=== PATIENT | female | born 1960 | race African-American/Black ===

== ENCOUNTER → 2017-08-02 | Outpatient (CLI) | payer BC | END | disposition home or self-care (01) | LOC: KCIC MAMMO 12:26 | DX: Z12.31 Encounter for screening mammogram for malignant neoplasm of breast (principal) | CPT/HCPCS: 77067 ==

== ENCOUNTER → 2018-08-03 | Outpatient (CLI) | payer BC ==
[2016-03-13 08:57] VITALS: BP 101/57
[~2018-08-03] MED LIST: ALEN35TA6 PO; CHOL10003 PO; LEVO88TA2 PO; PANT40TA5 PO; TRAM50TA PO
--- NOTE | 2018-08-03 15:46 | KCIC ---
History: Screening. Bilateral digital CC and MLO views were obtained with mammography and tomosynthesis. Computer aided detection was utilized with iCAD Second Look 7.2-H. Previous: Mammogram August 02, 2017 and priors. There are scattered fibroglandular densities (Level 2 density).There are no spiculated masses, suspicious microcalcifications or areas of architectural distortion. At the left upper outer breast 1:00 position mid depth there is a 1 cm oval partially circumscribed mass not apparent on the prior studies which may have a fatty hilum and could represent an intramammary lymph node. This should be further assessed sonographically. IMPRESSION: Left upper outer breast 1:00 position mid depth 1 cm mass, possibly a lymph node, not apparent on prior studies. Further assessment with left breast sonography is advised. BI-RADS Category 0: Incomplete. Need additional imaging evaluation. If your mammogram demonstrates that you have dense breast tissue, which could hide abnormalities, and if you have other risk factors for breast cancer that have been identified, you might benefit from supplemental screening tests that may be suggested by your ordering physician. Dense breast tissue, in and of itself, is a relatively common condition. This information is not provided to cause undue concern, but rather to raise your awareness and to promote discussion with your physician regarding the presence of other risk factors, in addition to dense breast tissue. A report of your mammography results will be sent to you and your physician. You should contact your physician if you have any questions or concerns regarding this report. A mammogram does not have 100% sensitivity and therefore a negative imaging study should not delay further work up of a suspicious abnormality. "Our facility is accredited by the [employer] Mammography [employer]." Electronically signed by: Slick Ritchie MD (08/03/2018 3:43 PM) [id number]
== END | disposition home or self-care (01) ==
LOC: KCIC MAMMO 09:08
PROVIDERS: ATTEND Family Medicine
DX: Z12.31 Encounter for screening mammogram for malignant neoplasm of breast (principal)
CPT/HCPCS: 77063; 77067

== ENCOUNTER → 2018-08-19 | Outpatient (CLI) | payer BC ==
[2016-03-13 08:57] VITALS: BP 101/57
--- NOTE | 2018-08-19 13:36 | KCIC ---
Left breast ultrasound: Reason for examination: Nodular density on screening mammogram. Comparison is made to mammographic exam dated 08/03/2018. Ultrasound examination was performed with attention to the area of mammographic concern and the left axilla. In the 1:30 position 9 cm from the nipple there is a 9.5 x 7.5 mm hypoechoic circumscribed lesion in parallel orientation. This may represent a fibroadenoma or fibrocystic lesion but has a benign appearance. There is also a small 9.6 mm intramammary lymph node at the 3:00 position 15 cm from the nipple. No other cystic or solid lesions are seen. No abnormal appearing lymph nodes are seen in the axilla. IMPRESSION: Small benign-appearing circumscribed nodule measuring 9.5 mm in greatest dimension at the 1:30 position 9 cm from the nipple. Recommend reevaluation with ultrasound in 6 months. BI-RADS Category 3: Probably Benign. "Our facility is accredited by the [employer] Mammography [employer]." This patient's information has been entered into a reminder system for the patient to be notified with the results of her examination and a target date for the next mammogram. Electronically signed by: Chelsey Hernandez MD (08/19/2018 1:33 PM) [id number]
== END | disposition home or self-care (01) ==
LOC: KCIC US 12:56
PROVIDERS: ATTEND Family Medicine
DX: N63.21 Unspecified lump in the left breast, upper outer quadrant (principal)
CPT/HCPCS: 76641

== ENCOUNTER → 2019-02-20 | Outpatient (CLI) | payer BC ==
[2016-03-13 08:57] VITALS: BP 101/57
[~2019-02-20] MED LIST changes: -PANT40TA5 PO; +PANT40TA77 PO
--- NOTE | 2019-02-20 14:53 | KCIC ---
Left breast ultrasound: Reason for examination: Follow-up nodule. Comparison is made to previous study dated 08/19/2018. Ultrasound examination of the left breast was performed. At the 1:30 position 9 cm from the nipple, there continues to be 9.4 x 6.1 mm hypoechoic nodule in parallel orientation containing echogenic plaque which probably represents a small fibroadenoma with calcification. This is unchanged. At the 3:00 position 15 cm from the nipple, there is a intramammary lymph node measuring 8.5 mm in greatest dimension. No suspicious lesions are seen. No abnormal appearing lymph nodes are seen in left axilla. IMPRESSION: The nodule at the 1:30 position is not changed and may represent a small fibroadenoma. Intramammary lymph node at the posterior 3:00 position. No suspicious nodules seen. Recommend continued sonographic follow-up in 6 months at the time of bilateral mammograms. BI-RADS Category 3: Probably Benign. "Our facility is accredited by the [employer] Mammography [employer]." This patient's information has been entered into a reminder system for the patient to be notified with the results of her examination and a target date for the next mammogram. Electronically signed by: Chelsey Hernandez MD (02/20/2019 2:51 PM) [facility]
== END | disposition home or self-care (01) ==
LOC: KCIC US 09:58
PROVIDERS: ATTEND Family Medicine
DX: N63.21 Unspecified lump in the left breast, upper outer quadrant (principal)
CPT/HCPCS: 76641

== ENCOUNTER 2019-06-19 14:56 | Inpatient (IN) | payer BC ==
[~2019-06-19] VITALS: Ht 152.4 cm; Wt 122.9 kg
[~2019-06-19 14:56] MED LIST changes: +ALEN35TA11 PO; -ALEN35TA6 PO
[2019-06-19 15:44] LABS: BASO # 0.1 x10^3/uL (0.0-0.2); BASO % 1 % (0-3); EOS % 0 % (0-3); HEMATOCRIT 35.2 % (36.0-47.0); HEMOGLOBIN 12.2 g/dL (12.0-15.5); LYMPH % 8 % (24-48); MEAN CORPUSCULAR HEMOGLOBIN 47 pg (25-35); MEAN CORPUSCULAR HGB CONC 35 g/dL (31-37); MEAN CORPUSCULAR VOLUME 136 fL (79-100); MONO # 0.4 x10^3/uL (0.0-1.1); MONO % 3 % (0-9); NEUT # 10.6 x10^3/uL (1.8-7.7); NEUT % 88 % (31-73); PLATELET COUNT 312 x10^3/uL (140-400); RED BLOOD COUNT 2.59 x10^6/uL (3.50-5.40); RED CELL DISTRIBUTION WIDTH 15.9 % (11.5-14.5); WHITE BLOOD COUNT 12.1 x10^3/uL (4.0-11.0)
--- NOTE | 2019-06-19 15:46 | PHYS DOC ---
Past Medical History Past Medical History: Hypothyroid, Other Additional Past Medical Histor: osteoporosis, vit D deff Past Surgical History: , Tubal ligation Alcohol Use: None Drug Use: None Adult General Chief Complaint Chief Complaint: CELLULITIS HPI HPI Patient is a 58 year old female who presents with right leg pain has been for 2 weeks. The patient states she's been having difficulty walking the right leg due to the pain. The patient states that the pain is worsening. The patient was seen by primary care doctor and sent to the ER. She denies using antibiotics so far but states she's been on prednisone. Denies running any fevers. Complete ROS were reviewed and found to be within normal limits, except as documented in the HPI Current Medications Current Medications Current Medications Medications (Trade) Dose Ordered Sig/Gokul Start Time Stop Time Status Last Admin Dose Admin Clindamycin Phosphate 50 ml @ 100 mls/hr 1X STAT 06/19/19 15:48 06/19/19 16:17 DC 06/19/19 16:12 100 MLS/HR Lidocaine HCl 20 ml 1X STAT 06/19/19 16:24 06/19/19 16:25 DC 06/19/19 16:28 20 ML Ondansetron HCl (Zofran) 4 mg PRN Q8HRS PRN 06/19/19 17:00 06/20/19 16:59 Sodium Chloride 1,000 ml @ 1,000 mls/hr 1X STAT 06/19/19 15:48 06/19/19 16:47 DC 06/19/19 16:12 1,000 MLS/HR Allergies Allergies Allergies Coded Allergies Type Severity Reaction Last Updated Verified No Known Drug Allergies 03/13/16 No Physical Exam Physical Exam Constitutional: Well developed, well nourished, no acute distress, non-toxic appearance. [] HENT: Normocephalic, atraumatic, bilateral external ears normal, oropharynx moist, no oral exudates, nose normal. [] Eyes: PERRLA, EOMI, conjunctiva normal, no discharge. [] Neck: Normal range of motion, no tenderness, supple, no stridor. [] Cardiovascular:Heart rate regular rhythm, no murmur [] Lungs & Thorax: Bilateral breath sounds clear to auscultation [] Skin: Erythema and edema to right leg. The patient has black vesicle over the right ankle with fluctuence and multiple spots of circular scabbed wound with erythema around it. Extremities: Tenderness to R calf, warm to touch. Neurologic: Alert and oriented X 3, normal motor function, normal sensory function, no focal deficits noted. [] Psychologic: Affect normal, judgement normal, mood normal. [] Current Patient Data Vital Signs Vital Signs Date Time Temp Pulse Resp B/P (MAP) Pulse Ox O2 Delivery O2 Flow Rate FiO2 06/19/19 15:15 98.1 100 16 179/98 (125) 98 Room Air 98.1 Lab Values Laboratory Tests Test 06/19/19 15:30 White Blood Count 12.1 x10^3/uL (4.0-11.0) H Red Blood Count 2.59 x10^6/uL (3.50-5.40) L Hemoglobin 12.2 g/dL (12.0-15.5) Hematocrit 35.2 % (36.0-47.0) L Mean Corpuscular Volume 136 fL (79-100) H Mean Corpuscular Hemoglobin 47 pg (25-35) H Mean Corpuscular Hemoglobin Concent 35 g/dL (31-37) Red Cell Distribution Width 15.9 % (11.5-14.5) H Platelet Count 312 x10^3/uL (140-400) Neutrophils (%) (Auto) 88 % (31-73) H Lymphocytes (%) (Auto) 8 % (24-48) L Monocytes (%) (Auto) 3 % (0-9) Eosinophils (%) (Auto) 0 % (0-3) Basophils (%) (Auto) 1 % (0-3) Neutrophils # (Auto) 10.6 x10^3/uL (1.8-7.7) H Lymphocytes # (Auto) 1.0 x10^3/uL (1.0-4.8) Monocytes # (Auto) 0.4 x10^3/uL (0.0-1.1) Eosinophils # (Auto) 0.0 x10^3/uL (0.0-0.7) Basophils # (Auto) 0.1 x10^3/uL (0.0-0.2) Platelet Estimate Pending Sodium Level 140 mmol/L (136-145) Potassium Level 3.9 mmol/L (3.5-5.1) Chloride Level 103 mmol/L (98-107) Carbon Dioxide Level 26 mmol/L (21-32) Anion Gap 11 (6-14) Blood Urea Nitrogen 13 mg/dL (7-20) Creatinine 1.0 mg/dL (0.6-1.0) Estimated GFR (Cockcroft-Gault) 68.4 BUN/Creatinine Ratio 13 (6-20) Glucose Level 137 mg/dL (70-99) H Lactic Acid Level 1.6 mmol/L (0.4-2.0) Calcium Level 9.2 mg/dL (8.5-10.1) Total Bilirubin 0.7 mg/dL (0.2-1.0) Aspartate Amino Transferase (AST) 19 U/L (15-37) Alanine Aminotransferase (ALT) 18 U/L (14-59) Alkaline Phosphatase 67 U/L (46-116) Total Protein 7.8 g/dL (6.4-8.2) Albumin 4.1 g/dL (3.4-5.0) Albumin/Globulin Ratio 1.1 (1.0-1.7) Laboratory Tests 06/19/19 15:30 Laboratory Tests 06/19/19 15:30 EKG EKG [] Radiology/Procedures Radiology/Procedures [][facility] [address] [place], [place] [id number] IMAGING REPORT Signed PATIENT: INDIRA CORLEY ACCOUNT: [id number] : 1960 LOCATION: ER AGE: 58 SEX: F EXAM STATUS: REG ER ORD. PHYSICIAN: KARRI KWON APRN REASON: edema and erythema R leg abscess vs dvt PROCEDURE: VENOUS LOWER EXTREMITY RIGHT VENOUS LOWER EXTREMITY RIGHT History: Edema. Erythema. Right leg abscess versus DVT. Comparison: None. Discussion: Multiple longitudinal and transverse high resolution real-time images of the venous system of right lower extremity were obtained with color and Doppler sampling. The common femoral, superficial femoral, popliteal and proximal calf veins are all patent and demonstrate normal flow and compressibility. Normal respiratory phasicity and augmentation is present. Right lower extremity subcutaneous edema. Complex fluid collection within the right medial lower leg at the level of the ankle measures 2.4 x 2.1 x 0.8 cm. Impression: 1. No evidence of deep vein thrombosis within the right lower extremity. 2. Complex fluid collection medial to the right ankle, may represent abscesses if concern for infection. Electronically signed by: Braxton Vyas DO (06/19/2019 4:16 PM) [id number] DICTATED and SIGNED BY: BRAXTON VYAS DO DATE: 06/19/19 1616 Course & Med Decision Making Course & Med Decision Making Pertinent Labs and Imaging studies reviewed. (See chart for details) Will get an ultrasound of leg and labs. Labs: WBC: 12.1 RBC: 2.59 Lactic: 1.6 Will give IV fluids and Clindamyin. Ultrasound shows abscess to ankle and no signs of DVT. Indication: abscess Procedure: The patient was positioned appropriately. Local anesthesia was 2% lidocaine. An incision was then made over the apex of the lesion and copious material was expressed. The patient tolerated the procedure well. Will call Dr. Trinidad for admission to hospital. Discussed with Dr. Trinidad who accepts admission to hospital. Dragon Disclaimer Dragon Disclaimer This electronic medical record was generated, in whole or in part, using a voice recognition dictation system. Departure Departure Impression: Primary Impression: Cellulitis and abscess of leg Disposition: ADMITTED INPATIENT Admitting Physician: HIMS Condition: STABLE Referrals: MICHAEL LARRY MD (PCP) KARRI KWON APRN Jun 19, 2019 15:46
[2019-06-19] MEDS ORDERED: CLINDAMYCIN 600MG PREMIX 50 ML IV STA (15:48)
[2019-06-19] MEDS ORDERED: IV NORMAL SALINE 1000ML BAG 1,000 ML IV STA (15:48)
[2019-06-19 15:53] LABS: CALCIUM 9.2 mg/dL (8.5-10.1); GFR 68.4; POTASSIUM 3.9 mmol/L (3.5-5.1)
[2019-06-19 15:58] LABS: ALBUMIN 4.1 g/dL (3.4-5.0); ALBUMIN/GLOBULIN RATIO 1.1 (1.0-1.7); TOTAL BILIRUBIN 0.7 mg/dL (0.2-1.0); TOTAL PROTEIN 7.8 g/dL (6.4-8.2)
--- NOTE | 2019-06-19 16:19 | RAD ---
VENOUS LOWER EXTREMITY RIGHT History: Edema. Erythema. Right leg abscess versus DVT. Comparison: None. Discussion: Multiple longitudinal and transverse high resolution real-time images of the venous system of right lower extremity were obtained with color and Doppler sampling. The common femoral, superficial femoral, popliteal and proximal calf veins are all patent and demonstrate normal flow and compressibility. Normal respiratory phasicity and augmentation is present. Right lower extremity subcutaneous edema. Complex fluid collection within the right medial lower leg at the level of the ankle measures 2.4 x 2.1 x 0.8 cm. Impression: 1. No evidence of deep vein thrombosis within the right lower extremity. 2. Complex fluid collection medial to the right ankle, may represent abscesses if concern for infection. Electronically signed by: Braxton Vyas DO (06/19/2019 4:16 PM) [id number]
[2019-06-19] MEDS ORDERED: LIDOCAINE 2% 20 ML VIAL. IJ STA (16:24)
[2019-06-19] MEDS ORDERED: ONDANSETRON PF 4 MG/2 ML VIAL. IV PRN ×2 (17:00→20:30)
[2019-06-19 17:02] LABS: % ATYL 2 % (0-0); % BANDS 8 % (0-9); % LYMPHS 12 % (24-48); % MONOS 1 % (0-10); % SEGS 77 % (35-66); ANISOCYTOSIS SLIGHT; HOWELL-JOLLY BODIES PRESENT; PLT ESTIMATE ADEQUATE (ADEQUATE); STOMATOCYTES MOD
[2019-06-19 17:03] LABS: POLYCHROMASIA SLIGHT
[2019-06-19 17:04] LABS: SCHISTOCYTES OCC; SPHEROCYTES OCC; TOXIC VACUOLATION SLIGHT
[2019-06-19 17:06] LABS: BIZZARE CELLS OCC; TEAR DROP CELLS OCC
[2019-06-19] MEDS ORDERED: fentaNYL PF VIAL 100 MCG/2 ML VIAL IV STA (17:13)
--- NOTE | 2019-06-19 17:20 | PDOC1 ---
History and Physical Date of Admission Date of Admission DATE: 06/19/19 TIME: 17:16 Identification/Chief Complaint Chief Complaint Leg pain Source Source: Patient History of Present Illness History of Present Illness Ms Gutiérrez is a 58yo F w/ PMHx Hypothyroidism, osteoporosis, vit D deficiency who presents with right leg pain has been for 2 weeks. The patient states she's been having difficulty walking the right leg due to the pain. The patient states that the pain is worsening. The patient was seen by primary care doctor and was given some "pills" last week and today was sent to the ER (she was given acyclovir, then valtrex the following week). She thinks she has not been on antibiotics, thinks she has been on prednisone. Denies running any fevers or recent sick contacts She does note dermatitis of her lower extremities previously, had biopsy with dermatology and was told it was indeterminate, not cancerous. Her rash on her right lower extremity is red, swollen, painful and has 3 discrete red raised 2x4 cm circumferential lesions associated. WBC: 12.1, Cr 1, Glucose 137, Lactic: 1.6 Ultrasound shows abscess to ankle and no signs of DVT. I&D performed in ED, given clindamycin IV and as she is unable to bear weight and failed 2 weeks of outpatient treatment called for admission for further treatment Past Medical History Cardiovascular: No pertinent hx Pulmonary: No pertinent hx GI: No pertinent hx Heme/Onc: No pertinent hx Hepatobiliary: No pertinent hx Psych: No pertinent hx Rheumatologic: No pertinent hx Infectious disease: No pertinent hx ENT: No pertinent hx Renal/: No pertinent hx Endocrine: Hypothyroidism Dermatology: No pertinent hx Past Surgical History Past Surgical History: , Tubal Ligation Family History Family History: Hypertension Social History Smoke: No ALCOHOL: none Drugs: None Current Problem List Problem List Problems Medical Problems: (1) Cellulitis and abscess of leg Status: Acute Current Medications Current Medications Current Medications Sodium Chloride 1,000 ml @ 1,000 mls/hr 1X STAT IV Last administered on 06/19/19at 16:12; Start 06/19/19 at 15:48; Stop 06/19/19 at 16:47; Status DC Clindamycin Phosphate 50 ml @ 100 mls/hr 1X STAT IV Last administered on 06/19/19at 16:12; Start 06/19/19 at 15:48; Stop 06/19/19 at 16:17; Status DC Lidocaine HCl 20 ml 1X STAT IJ Last administered on 06/19/19at 16:28; Start 06/19/19 at 16:24; Stop 06/19/19 at 16:25; Status DC Ondansetron HCl (Zofran) 4 mg PRN Q8HRS PRN IV NAUSEA/VOMITING; Start 06/19/19 at 17:00; Stop 06/20/19 at 16:59 Fentanyl Citrate (Fentanyl 2ml Vial) 50 mcg 1X STAT IV ; Start 06/19/19 at 17:13; Stop 06/19/19 at 17:15; Status DC Active Scripts Active Reported Tramadol Hcl 50 Mg Tablet 1 Tab PO PRN Q6HRS Pantoprazole Sodium 40 Mg Tablet.dr 1 Tab PO DAILY Vitamin D3 (Cholecalciferol (Vitamin D3)) 1,000 Unit Tablet 2,000 Unit PO DAILY Alendronate Sodium 35 Mg Tablet 1 Tab PO WEEKLY Synthroid (Levothyroxine Sodium) 88 Mcg Tablet 88 Mcg PO DAILYAC Allergies Allergies: Coded Allergies: No Known Drug Allergies (Unverified , 03/13/16) ROS General: YES: Chills; No: Night Sweats, Fatigue, Malaise, Appetite, Other PSYCHOLOGICAL ROS: No: Anxiety, Behavioral Disorder, Concentration difficultie, Decreased libido, Depression, Disorientation, Hallucinations, Hostility, Irritablity, Memory difficulties, Mood Swings, Obsessive thoughts, Physical abuse, Sexual abuse, Sleep disturbances, Suicidal ideation, Other Eyes: No Blurry vision, No Decreased vision, No Double vision, No Dry eyes, No Excessive tearing, No Eye Pain, No Itchy Eyes, No Loss of vision, No Photophobia, No Scotomata, No Uses contacts, No Uses glasses, No Other HEENT: No: Heacaches, Visual Changes, Hearing change, Nasal congestion, Nasal discharge, Oral lesions, Sinus pain, Sore Throat, Epistaxis, Sneezing, Snoring, Tinnitus, Vertigo, Vocal changes, Other ALLERGY AND IMMUNOLOGY: No: Hives, Insect Bite Sensitivity, Itchy/Watery Eyes, Nasal Congestion, Post Nasal Drip, Seasonal Allergies, Other Hematological and Lymphatic: No: Bleeding Problems, Blood Clots, Blood Transfusions, Brusing, Night Sweats, Pallor, Swollen Lymph Nodes, Other ENDOCRINE: No: Breast Changes, Galactorrhea, Hair Pattern Changes, Hot Flashes, Malaise/lethargy, Mood Swings, Palpitations, Polydipsia/polyuria, Skin Changes, Temperature Intolerance, Unexpected Weight Changes, Other Breast: No New/Changing Breast Lumps, No Nipple changes, No Nipple discharge, No Other Respiratory: No: Cough, Hemoptysis, Orthopnea, Pleuritic Pain, Shortness of breath, SOB with excertion, Sputum Changes, Stridor, Tachypnea, Wheezing, Other Cardiovascular: No Chest Pain, No Palpitations, No Orthopnea, No Paroxysmal Noc. Dyspnea, No Edema, No Lt Headedness, No Other Gastrointestinal: No Nausea, No Vomiting, No Abdominal Pain, No Diarrhea, No Constipation, No Melena, No Hematochezia, No Other Genitourinary: No Dysuria, No Frequency, No Incontinence, No Hematuria, No Retention, No Discharge, No Urgency, No Pain, No Flank Pain, No Other, No , No , No , No , No , No , No Musculoskeletal: No Gait Disturbance, No Joint Pain, No Joint Stiffness, No Joint Swelling, No Muscle Pain, No Muscular Weakness, No Pain In:, No Swelling In:, No Other Neurological: No Behavorial Changes, No Bowel/Bladder ControlChng, No Confusion, No Dizziness, No Gait Disturbance, No Headaches, No Impaired Coord/balance, No Memory Loss, No Numbness/Tingling, No Seizures, No Speech Problems, No Tremors, No Visual Changes, No Weakness, No Other Skin: Yes Rash, Yes Skin Lesion Changes; No Dry Skin, No Eczema, No Hair Changes, No Lumps, No Mole Changes, No Mottling, No Nail Changes, No Pruritus, No Other, No Acne Physical Exam General: Alert, Oriented X3, Cooperative, No acute distress HEENT: Atraumatic, PERRLA, EOMI, Mucous membr. moist/pink Lungs: Clear to auscultation, Normal air movement Heart: S1S2, RRR, no thrills, no rubs, no gallops, no murmurs Rectal Exam: not examined Extremities: No clubbing, No cyanosis, No edema, Normal pulses Skin: No breakdown, Other (Anterior tibial dark dermatitis and confluent cellulitis, warm red, swollen with 3 discrete lesions, painful, raised.) Neuro: Normal speech, Strength at 5/5 X4 ext, Normal tone, Sensation intact, Cranial nerves 3-12 NL, Reflexes 2+, Other (Unable to bear weight on right leg) Psych/Mental Status: Mental status NL, Mood NL Vitals Vitals Vital Signs Date Time Temp Pulse Resp B/P (MAP) Pulse Ox O2 Delivery O2 Flow Rate FiO2 06/19/19 15:15 98.1 100 16 179/98 (125) 98 Room Air 98.1 Labs Labs Laboratory Tests Test 06/19/19 15:30 White Blood Count 12.1 x10^3/uL (4.0-11.0) Red Blood Count 2.59 x10^6/uL (3.50-5.40) Hemoglobin 12.2 g/dL (12.0-15.5) Hematocrit 35.2 % (36.0-47.0) Mean Corpuscular Volume 136 fL (79-100) Mean Corpuscular Hemoglobin 47 pg (25-35) Mean Corpuscular Hemoglobin Concent 35 g/dL (31-37) Red Cell Distribution Width 15.9 % (11.5-14.5) Platelet Count 312 x10^3/uL (140-400) Neutrophils (%) (Auto) 88 % (31-73) Lymphocytes (%) (Auto) 8 % (24-48) Monocytes (%) (Auto) 3 % (0-9) Eosinophils (%) (Auto) 0 % (0-3) Basophils (%) (Auto) 1 % (0-3) Neutrophils # (Auto) 10.6 x10^3/uL (1.8-7.7) Lymphocytes # (Auto) 1.0 x10^3/uL (1.0-4.8) Monocytes # (Auto) 0.4 x10^3/uL (0.0-1.1) Eosinophils # (Auto) 0.0 x10^3/uL (0.0-0.7) Basophils # (Auto) 0.1 x10^3/uL (0.0-0.2) Segmented Neutrophils % 77 % (35-66) Band Neutrophils % 8 % (0-9) Lymphocytes % 12 % (24-48) Atypical Lymphocytes % (Manual) 2 % (0-0) Monocytes % 1 % (0-10) Toxic Vacuolation Slight Platelet Estimate Adequate (ADEQUATE) Large Platelets Few Polychromasia Slight Anisocytosis Slight Macrocytosis Marked Spherocytes Occ Tear Drop Cells Occ Stomatocytes Mod Fu-[place] Bodies Present Schistocytes Occ RBC Morphology Bizarre Forms Occ Sodium Level 140 mmol/L (136-145) Potassium Level 3.9 mmol/L (3.5-5.1) Chloride Level 103 mmol/L (98-107) Carbon Dioxide Level 26 mmol/L (21-32) Anion Gap 11 (6-14) Blood Urea Nitrogen 13 mg/dL (7-20) Creatinine 1.0 mg/dL (0.6-1.0) Estimated GFR (Cockcroft-Gault) 68.4 BUN/Creatinine Ratio 13 (6-20) Glucose Level 137 mg/dL (70-99) Lactic Acid Level 1.6 mmol/L (0.4-2.0) Calcium Level 9.2 mg/dL (8.5-10.1) Total Bilirubin 0.7 mg/dL (0.2-1.0) Aspartate Amino Transf (AST/SGOT) 19 U/L (15-37) Alanine Aminotransferase (ALT/SGPT) 18 U/L (14-59) Alkaline Phosphatase 67 U/L (46-116) Total Protein 7.8 g/dL (6.4-8.2) Albumin 4.1 g/dL (3.4-5.0) Albumin/Globulin Ratio 1.1 (1.0-1.7) Laboratory Tests Test 06/19/19 15:30 White Blood Count 12.1 x10^3/uL (4.0-11.0) Red Blood Count 2.59 x10^6/uL (3.50-5.40) Hemoglobin 12.2 g/dL (12.0-15.5) Hematocrit 35.2 % (36.0-47.0) Mean Corpuscular Volume 136 fL (79-100) Mean Corpuscular Hemoglobin 47 pg (25-35) Mean Corpuscular Hemoglobin Concent 35 g/dL (31-37) Red Cell Distribution Width 15.9 % (11.5-14.5) Platelet Count 312 x10^3/uL (140-400) Neutrophils (%) (Auto) 88 % (31-73) Lymphocytes (%) (Auto) 8 % (24-48) Monocytes (%) (Auto) 3 % (0-9) Eosinophils (%) (Auto) 0 % (0-3) Basophils (%) (Auto) 1 % (0-3) Neutrophils # (Auto) 10.6 x10^3/uL (1.8-7.7) Lymphocytes # (Auto) 1.0 x10^3/uL (1.0-4.8) Monocytes # (Auto) 0.4 x10^3/uL (0.0-1.1) Eosinophils # (Auto) 0.0 x10^3/uL (0.0-0.7) Basophils # (Auto) 0.1 x10^3/uL (0.0-0.2) Segmented Neutrophils % 77 % (35-66) Band Neutrophils % 8 % (0-9) Lymphocytes % 12 % (24-48) Atypical Lymphocytes % (Manual) 2 % (0-0) Monocytes % 1 % (0-10) Toxic Vacuolation Slight Platelet Estimate Adequate (ADEQUATE) Large Platelets Few Polychromasia Slight Anisocytosis Slight Macrocytosis Marked Spherocytes Occ Tear Drop Cells Occ Stomatocytes Mod Fu-[place] Bodies Present Schistocytes Occ RBC Morphology Bizarre Forms Occ Sodium Level 140 mmol/L (136-145) Potassium Level 3.9 mmol/L (3.5-5.1) Chloride Level 103 mmol/L (98-107) Carbon Dioxide Level 26 mmol/L (21-32) Anion Gap 11 (6-14) Blood Urea Nitrogen 13 mg/dL (7-20) Creatinine 1.0 mg/dL (0.6-1.0) Estimated GFR (Cockcroft-Gault) 68.4 BUN/Creatinine Ratio 13 (6-20) Glucose Level 137 mg/dL (70-99) Lactic Acid Level 1.6 mmol/L (0.4-2.0) Calcium Level 9.2 mg/dL (8.5-10.1) Total Bilirubin 0.7 mg/dL (0.2-1.0) Aspartate Amino Transf (AST/SGOT) 19 U/L (15-37) Alanine Aminotransferase (ALT/SGPT) 18 U/L (14-59) Alkaline Phosphatase 67 U/L (46-116) Total Protein 7.8 g/dL (6.4-8.2) Albumin 4.1 g/dL (3.4-5.0) Albumin/Globulin Ratio 1.1 (1.0-1.7) Images Images RLE Venous Ultrasound - Multiple longitudinal and transverse high resolution real-time images of the venous system of right lower extremity were obtained with color and Doppler sampling. The common femoral, superficial femoral, popliteal and proximal calf veins are all patent and demonstrate normal flow and compressibility. Normal respiratory phasicity and augmentation is present. Right lower extremity subcutaneous edema. Complex fluid collection within the right medial lower leg at the level of the ankle measures 2.4 x 2.1 x 0.8 cm. Impression: 1. No evidence of deep vein thrombosis within the right lower extremity. 2. Complex fluid collection medial to the right ankle, may represent abscesses if concern for infection. VTE Prophylaxis Ordered VTE Prophylaxis Devices: Contraindicated VTE Pharmacological Prophylaxi: Yes Assessment/Plan Assessment/Plan A/P: Right leg abscess - near right medial malleolus, s/p I&D and culture with blood cultures. Empiric clindamycin given, will treat with vancomycin and zosyn. Consult ID. Right leg cellulitis - spares the foot. Will raise extremity, wound care for compressive wrap if she can tolerate it. Red raised lesions - this appears like erythema nodosum in 2 locations. Will see how she responds to antibiotics (no history of GI issues or pulmonary issues, no sarcoid) Leukocytosis - with tachycardia and cellulitis with abscess this is sepsis, POA, given antibiotics and fluids. Will monitor Macrocytosis - she tells me she is on B12 replacement. Will verify Hypothyroidism - will cont meds Vitamin D insufficiency - will cont meds Elevated fasting glucose - will check A1c. monitor Unable to walk - 2/2 RLE pain, will have wound care to see, pain control FEN - General diet PPX - lovenox FULL CODE Dispo - inpatient for right leg cellulitis and abscess failing outpatient treatment TEMITOPE MACKEY MD Jun 19, 2019 17:20
[2019-06-19] MEDS ORDERED: traMADol 50 MG TABLET PO PRN ×2 (17:45→20:30)
[2019-06-19 18:20] VITALS: BP 184/85
--- NOTE | 2019-06-19 18:25 | NUR ---
Notified Dr. Trinidad of patients blood pressure upon arrival to unit, no new orders received.
[2019-06-19 19:50] VITALS: BP 124/55
[2019-06-19] MEDS ORDERED: DOCUSATE SODIUM 100 MG CAPSULE. PO PRN (20:30)
[2019-06-19] MEDS ORDERED: ZOLPIDEM 5 MG TABLET. PO PRN (20:30)
[2019-06-19] MEDS: ENOXAPARIN 40 MG/0.4 ML SYRINGE. SQ SCH (21:00)
[2019-06-19] MEDS ORDERED: ENOXAPARIN 40 MG/0.4 ML SYRINGE. SQ SCH (21:00)
[2019-06-19] MEDS ORDERED: VANCOMYCIN 2 GM in IV NORMAL SALINE 500ML BAG 500 ML IV ONE (21:00)
[2019-06-19] MEDS: HYDROcodone/APAP 5/325MG 1 TAB TABLET PO PRN (23:26)
[2019-06-19] MEDS: PIPERACILLIN/TAZOBACTAM 3.375 GM in IV NORMAL SALINE 50ML 50 ML IV SCH (23:27)
[2019-06-19 23:42] VITALS: BP 103/56
--- NOTE | 2019-06-19 23:43 | NUR ---
Received report from RADHA Mixon around 1900. Pt. arrived on unit at 1810 per RADHA Escalante. Pt. states her pain is "not bad" but does get sharp pain every once in a while. Pt. is visiting with family at the time of shift change and eating her dinner. Call light is within reach and bed in lowest position. Will continue to monitor.
[2019-06-20] MEDS: VANCOMYCIN PER PHARMACY MC PRN ×2 (02:31→15:55)
--- NOTE | 2019-06-20 02:31 | NUR ---
Pharmacy Vancomycin Dosing Note S:Consulted to monitor and dose vancomycin started 06/19/19. O:INDIRA CORLEY is a 58 year old F with Abscess Cellulitis . Height: 5 feet, 0 inches Weight: 116.7 kg Avinger Body Weight: 45.50 Adjusted Body Weight: 73.98 Dosing Weight: Actual Other Antibiotics: ZOSYN 3.375 GM Q6H LABS: Last BUN: 13 Last Creatinine: 1 Creatinine Clearance: 70 mL/min Last WBC: 12.1 Last Procalcitonin: Tmax (past 24 hours): Microbiology: I/O: Drug Levels: Last level: on at Last dose given 06/19/19 at 2100 Vancomycin Dosing: Loading Dose: 2000 mg x1 Dosing Weight: Actual Target Trough: 10-20 A: Based on: WT AND CRCL P: 1. Begin Vancomycin 1750 mg IV q12h 2. Follow up Trough level on 06/21/19 at 0830 3. Pharmacy will continue to monitor, follow and adjust therapy as needed. MAGNUS CAMPBELL RPH, 06/20/[id number] Signed: 06/20/19 at 023 by MAGNUS CAMPBELL RPH PHA
[2019-06-20 03:33] VITALS: BP 104/69
[2019-06-20 05:15] LABS: BASO % 0 % (0-3); EOS # 0.1 x10^3/uL (0.0-0.7); EOS % 1 % (0-3); HEMATOCRIT 29.9 % (36.0-47.0); HEMOGLOBIN 10.5 g/dL (12.0-15.5); LYMPH # 2.9 x10^3/uL (1.0-4.8); LYMPH % 34 % (24-48); MEAN CORPUSCULAR HEMOGLOBIN 48 pg (25-35); MEAN CORPUSCULAR HGB CONC 35 g/dL (31-37); MEAN CORPUSCULAR VOLUME 137 fL (79-100); MONO # 0.5 x10^3/uL (0.0-1.1); MONO % 6 % (0-9); NEUT # 4.9 x10^3/uL (1.8-7.7); NEUT % 59 % (31-73); PLATELET COUNT 249 x10^3/uL (140-400); RED BLOOD COUNT 2.18 x10^6/uL (3.50-5.40); RED CELL DISTRIBUTION WIDTH 16.4 % (11.5-14.5); WHITE BLOOD COUNT 8.4 x10^3/uL (4.0-11.0)
[2019-06-20] MEDS: LEVOTHYROXINE 88 MCG TABLET PO SCH (05:18)
[2019-06-20] MEDS: PIPERACILLIN/TAZOBACTAM 3.375 GM in IV NORMAL SALINE 50ML 50 ML IV SCH ×3 (05:18→17:26)
[2019-06-20] MEDS: HYDROcodone/APAP 5/325MG 1 TAB TABLET PO PRN ×4 (05:22→23:01)
[2019-06-20 05:52] LABS: C-REACTIVE PROTEIN 30.9 mg/L (0-3.3); CALCIUM 8.6 mg/dL (8.5-10.1); CREATININE 0.8 mg/dL (0.6-1.0); GFR 88.5; POTASSIUM 3.6 mmol/L (3.5-5.1)
[2019-06-20 07:00] VITALS: BP 110/63
[2019-06-20] MEDS: ENOXAPARIN 40 MG/0.4 ML SYRINGE. SQ SCH ×2 (08:29→21:07)
[2019-06-20] MEDS: PANTOPRAZOLE 40 MG TABLET.DR. PO SCH (08:34)
[2019-06-20] MEDS: LACTOBACILLUS RHAMNOSUS GG 1 CAPSULE. PO SCH ×2 (08:34→21:02)
[2019-06-20] MEDS: VANCOMYCIN 1.75 GM in IV NORMAL SALINE 500ML BAG 500 ML IV SCH ×2 (08:34→21:03)
[2019-06-20] MEDS: CYANOCOBALAMIN (VITAMIN B-12) 1,000 MCG TABLET. PO SCH (08:34)
[2019-06-20] MEDS: CHOLECALCIFEROL (VITAMIN D3) 1,000 UNIT TABLET PO SCH (08:34)
--- NOTE | 2019-06-20 09:20 | PDOC ---
Infectious Disease Note Vital Sign Vital Signs Vital Signs Date Time Temp Pulse Resp B/P (MAP) Pulse Ox O2 Delivery O2 Flow Rate FiO2 06/20/19 07:17 16 Room Air 06/20/19 03:33 98.1 72 104/69 (81) 94 98.1 Labs Lab Laboratory Tests Test 06/19/19 15:30 06/20/19 03:55 White Blood Count 12.1 x10^3/uL (4.0-11.0) 8.4 x10^3/uL (4.0-11.0) Red Blood Count 2.59 x10^6/uL (3.50-5.40) 2.18 x10^6/uL (3.50-5.40) Hemoglobin 12.2 g/dL (12.0-15.5) 10.5 g/dL (12.0-15.5) Hematocrit 35.2 % (36.0-47.0) 29.9 % (36.0-47.0) Mean Corpuscular Volume 136 fL (79-100) 137 fL (79-100) Mean Corpuscular Hemoglobin 47 pg (25-35) 48 pg (25-35) Mean Corpuscular Hemoglobin Concent 35 g/dL (31-37) 35 g/dL (31-37) Red Cell Distribution Width 15.9 % (11.5-14.5) 16.4 % (11.5-14.5) Platelet Count 312 x10^3/uL (140-400) 249 x10^3/uL (140-400) Neutrophils (%) (Auto) 88 % (31-73) 59 % (31-73) Lymphocytes (%) (Auto) 8 % (24-48) 34 % (24-48) Monocytes (%) (Auto) 3 % (0-9) 6 % (0-9) Eosinophils (%) (Auto) 0 % (0-3) 1 % (0-3) Basophils (%) (Auto) 1 % (0-3) 0 % (0-3) Neutrophils # (Auto) 10.6 x10^3/uL (1.8-7.7) 4.9 x10^3/uL (1.8-7.7) Lymphocytes # (Auto) 1.0 x10^3/uL (1.0-4.8) 2.9 x10^3/uL (1.0-4.8) Monocytes # (Auto) 0.4 x10^3/uL (0.0-1.1) 0.5 x10^3/uL (0.0-1.1) Eosinophils # (Auto) 0.0 x10^3/uL (0.0-0.7) 0.1 x10^3/uL (0.0-0.7) Basophils # (Auto) 0.1 x10^3/uL (0.0-0.2) 0.0 x10^3/uL (0.0-0.2) Segmented Neutrophils % 77 % (35-66) Band Neutrophils % 8 % (0-9) Lymphocytes % 12 % (24-48) Atypical Lymphocytes % (Manual) 2 % (0-0) Monocytes % 1 % (0-10) Toxic Vacuolation Slight Platelet Estimate Adequate (ADEQUATE) Large Platelets Few Polychromasia Slight Anisocytosis Slight Macrocytosis Marked Spherocytes Occ Tear Drop Cells Occ Stomatocytes Mod Fu-[place] Bodies Present Schistocytes Occ RBC Morphology Bizarre Forms Occ Sodium Level 140 mmol/L (136-145) 142 mmol/L (136-145) Potassium Level 3.9 mmol/L (3.5-5.1) 3.6 mmol/L (3.5-5.1) Chloride Level 103 mmol/L (98-107) 107 mmol/L (98-107) Carbon Dioxide Level 26 mmol/L (21-32) 25 mmol/L (21-32) Anion Gap 11 (6-14) 10 (6-14) Blood Urea Nitrogen 13 mg/dL (7-20) 11 mg/dL (7-20) Creatinine 1.0 mg/dL (0.6-1.0) 0.8 mg/dL (0.6-1.0) Estimated GFR (Cockcroft-Gault) 68.4 88.5 BUN/Creatinine Ratio 13 (6-20) Glucose Level 137 mg/dL (70-99) 77 mg/dL (70-99) Lactic Acid Level 1.6 mmol/L (0.4-2.0) Calcium Level 9.2 mg/dL (8.5-10.1) 8.6 mg/dL (8.5-10.1) Total Bilirubin 0.7 mg/dL (0.2-1.0) Aspartate Amino Transf (AST/SGOT) 19 U/L (15-37) Alanine Aminotransferase (ALT/SGPT) 18 U/L (14-59) Alkaline Phosphatase 67 U/L (46-116) Total Protein 7.8 g/dL (6.4-8.2) Albumin 4.1 g/dL (3.4-5.0) Albumin/Globulin Ratio 1.1 (1.0-1.7) Thyroid Stimulating Hormone (TSH) 2.784 uIU/mL (0.358-3.74) Erythrocyte Sedimentation Rate 45 (0-25) C-Reactive Protein, Quantitative 30.9 mg/L (0-3.3) Objective Assessment RLE cellulitis RLE abscess s/p I and D in ER 06/19 Leukocytosis Leg nodules - Erythema Nodsum Plan Plan of Care Agree with Vanc/Zosyn F/u labs and cults MRI ankle - r/o deeper abscess Thank you # [id number] CHELITA JHAVERI MD Jun 20, 2019 09:20
--- NOTE | 2019-06-20 10:18 | NUR ---
Wound Care Wound care consult for right ankle abscess. Pt has open abscess that was I&D in ER as well as 2 closed abscesses to R anterior calf and distal knee that are reddened, swollen and indurated. Cleansed area, pictured and measured open wound. Packed with gauze packing and covered with foam dressing. Pictured upper leg but they are not open at this time. No other wounds noted on full skin inspection. WC will continue to follow for possible changes. Pt educated on PU prevention.
[2019-06-20 11:00] VITALS: BP 90/51
[2019-06-20] MEDS ORDERED: GADOTERATE 7.5 MMOL/15ML VIAL. IVP ONE (12:15)
[2019-06-20] MEDS ORDERED: GADOTERATE 5 MMOL/10ML VIAL. IVP ONE (12:45)
--- NOTE | 2019-06-20 12:45 | NUR ---
SW following. Discussed with RN, pt is from home. MRI today, and PT/OT ordered. Wound care following. SW will continue to follow.
--- NOTE | 2019-06-20 13:04 | CONS ---
DATE OF CONSULTATION: 06/20/2019 LOCATION: The patient's room is 414. REQUESTING PHYSICIAN: Dr. Trinidad. REASON FOR CONSULTATION: Abscess. HISTORY OF PRESENT ILLNESS: The patient is a pleasant 58-year-old female with history of hypothyroidism, states about 2 weeks ago she developed some red bumps like pimples on the lateral aspect of her right lower extremity. She denies any trauma. They do not itch. She has one on her, kind of, mid lower leg and two about her ankle. She initially washed them with soap applied some rubbing alcohol. However, they continued to increase in size and become more painful. She went to see her primary care physician and was prescribed some steroids as well as some antivirals, acyclovir or Valtrex secondary to the swelling that she noticed when she put on her socks. She also felt there was a small wound developed in the posterior aspect of the calf, but that one had not changed in size. The patient states that her pain worsened and became so painful that even the brushing of her clothes or anything thing against the lesions caused her significant pain, they became more red and hot and they became difficult to walk. She did not have any drainage from the area, but did have episodes also of stabbing pain. She did not have any gross fevers or chills or sweats. She did feel some fatigue. She has had some chronic sinus issues. She has no sore throat or cough. No chest pain. Denies nausea, vomiting. No diarrhea. No dysuria, frequency or urgency. She presented to [facility] Emergency Room, found to have a white count of 12.1. In the Emergency Room, she underwent an incision and drainage. She was dosed with IV clindamycin and then placed on vancomycin and Zosyn. She denies any previous known pneumonias or Staph or strep infections, but she has had a previous biopsy on her legs secondary to dermatitis. PAST MEDICAL HISTORY: Positive for hypothyroidism, osteoporosis, vitamin D deficiency. PAST SURGICAL HISTORY: Positive for tubal ligation and . REVIEW OF SYSTEMS: Otherwise negative except for mentioned above. ALLERGIES: No known drug allergies. SOCIAL HISTORY: She is a smoker, no alcohol. 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 She has no pets at home. FAMILY HISTORY: Positive for hypertension. No known infections. CURRENT MEDICATIONS: Include clindamycin x 1, vancomycin, Zosyn, vitamins, Colace, lactobacillus, Synthroid, Protonix, Ultram. PHYSICAL EXAMINATION: VITAL SIGNS: She is afebrile since her presentation, temperature 98.1, pulse 72, respirations 16, blood pressure 104/69, satting 94% on room air. CONSTITUTIONAL: She is pleasant, cooperative. She is in no acute distress. She is sitting upright in bed. HEENT: Pupils are equal and reactive. She had normal conjunctivae. Oral cavity, pharynx was clear. NECK: Supple. Good range of motion. No JVD. LUNGS: Clear. HEART: S1, S2. ABDOMEN: Soft, nontender, no guarding or rebound. EXTREMITIES: Without clubbing, cyanosis. She has 1+ lower extremity edema to her right area, on the lateral aspect she has a small sized area. There is no gross drainage. She has three discrete lesions, one was up in the middle third of her tibia in the anterior medial aspect and two about her ankle. They are well circumscribed approximately a centimeter and half and painful. SKIN: Without generalized signs of rash. NEUROLOGIC: She is nonfocal. PSYCHIATRIC: Affect is appropriate. LABORATORY DATA: White count improved to 8.4 today, hemoglobin 10.5, platelets of 249 with normal differential. Sed rate was 45, creatinine 0.8. Normal liver function study test. C-reactive protein of 31. Lower extremity ultrasound, no evidence of deep venous thromboses complex fluid collection medial as well as right ankle. IMPRESSION: 1. Right lower extremity cellulitis. 2. Right lower extremity abscess, status post incision and drainage in the Emergency Room on the . 3. Leukocytosis. 4. Leg nodules, questionable erythema nodosum. RECOMMENDATIONS: Agree with vancomycin and Zosyn. Follow up labs and cultures. Obtain MRI to rule out a deeper abscess may need additional drainage. Thank you for the patient's care. If you have any questions, please do not hesitate to contact me. CHELITA JHAVERI MD DR: WILMER/cee JOB#: [id number] / [id number] ZEESHAN
[2019-06-20 15:00] VITALS: BP 131/62
--- NOTE | 2019-06-20 16:08 | PDOC ---
PROGRESS NOTES Chief Complaint Chief Complaint Impression and Plan: Right leg abscess - near right medial malleolus, s/p I&D and culture with blood cultures. Empiric clindamycin given, will treat with vancomycin and zosyn. Consult ID. Recommendations greatly appreciated Right leg cellulitis - spares the foot. Will raise extremity, wound care for compressive wrap if she can tolerate it. Red raised lesions - this appears like erythema nodosum in 2 locations. Will see how she responds to antibiotics (no history of GI issues or pulmonary issues, no sarcoid) Leukocytosis - with tachycardia and cellulitis with abscess this is sepsis, POA, given antibiotics and fluids. Will monitor Macrocytosis - she tells me she is on B12 replacement. Will verify Hypothyroidism - will cont meds Vitamin D insufficiency - will cont meds Elevated fasting glucose - follow results of HBA1c. Unable to walk - 2/2 RLE pain, will have wound care to see, pain control General diet PPX - lovenox FULL CODE Dispo - inpatient for right leg cellulitis and abscess failing outpatient treatment History of Present Illness History of Present Illness Feeling better compared to admission. The patient has less discomfort over the affected area, no fever or chills reported overnight. Reassurance has been provided no concerns voiced during my encounter Vitals Vitals Vital Signs Date Time Temp Pulse Resp B/P (MAP) Pulse Ox O2 Delivery O2 Flow Rate FiO2 06/20/19 15:17 16 Nasal Cannula 3.0 06/20/19 11:00 97.8 69 90/51 (64) 96 97.8 Physical Exam General: Alert, Oriented X3, Cooperative, No acute distress Extremities: No clubbing, No cyanosis, No edema, Normal pulses Skin: No breakdown, Other (Anterior tibial dark dermatitis and confluent cellulitis, warm red, swollen with 3 discrete lesions, painful, raised.) Labs LABS Laboratory Tests Test 06/20/19 03:55 White Blood Count 8.4 x10^3/uL (4.0-11.0) Red Blood Count 2.18 x10^6/uL (3.50-5.40) Hemoglobin 10.5 g/dL (12.0-15.5) Hematocrit 29.9 % (36.0-47.0) Mean Corpuscular Volume 137 fL (79-100) Mean Corpuscular Hemoglobin 48 pg (25-35) Mean Corpuscular Hemoglobin Concent 35 g/dL (31-37) Red Cell Distribution Width 16.4 % (11.5-14.5) Platelet Count 249 x10^3/uL (140-400) Neutrophils (%) (Auto) 59 % (31-73) Lymphocytes (%) (Auto) 34 % (24-48) Monocytes (%) (Auto) 6 % (0-9) Eosinophils (%) (Auto) 1 % (0-3) Basophils (%) (Auto) 0 % (0-3) Neutrophils # (Auto) 4.9 x10^3/uL (1.8-7.7) Lymphocytes # (Auto) 2.9 x10^3/uL (1.0-4.8) Monocytes # (Auto) 0.5 x10^3/uL (0.0-1.1) Eosinophils # (Auto) 0.1 x10^3/uL (0.0-0.7) Basophils # (Auto) 0.0 x10^3/uL (0.0-0.2) Erythrocyte Sedimentation Rate 45 (0-25) Sodium Level 142 mmol/L (136-145) Potassium Level 3.6 mmol/L (3.5-5.1) Chloride Level 107 mmol/L (98-107) Carbon Dioxide Level 25 mmol/L (21-32) Anion Gap 10 (6-14) Blood Urea Nitrogen 11 mg/dL (7-20) Creatinine 0.8 mg/dL (0.6-1.0) Estimated GFR (Cockcroft-Gault) 88.5 Glucose Level 77 mg/dL (70-99) Calcium Level 8.6 mg/dL (8.5-10.1) C-Reactive Protein, Quantitative 30.9 mg/L (0-3.3) Assessment and Plan Assessmemt and Plan Problems Medical Problems: (1) Cellulitis and abscess of leg Status: Acute Comment Review of Relevant I have reviewed the following items bijan (where applicable) has been applied. Labs Laboratory Tests Test 06/19/19 15:30 06/20/19 03:55 White Blood Count 12.1 x10^3/uL (4.0-11.0) 8.4 x10^3/uL (4.0-11.0) Red Blood Count 2.59 x10^6/uL (3.50-5.40) 2.18 x10^6/uL (3.50-5.40) Hemoglobin 12.2 g/dL (12.0-15.5) 10.5 g/dL (12.0-15.5) Hematocrit 35.2 % (36.0-47.0) 29.9 % (36.0-47.0) Mean Corpuscular Volume 136 fL (79-100) 137 fL (79-100) Mean Corpuscular Hemoglobin 47 pg (25-35) 48 pg (25-35) Mean Corpuscular Hemoglobin Concent 35 g/dL (31-37) 35 g/dL (31-37) Red Cell Distribution Width 15.9 % (11.5-14.5) 16.4 % (11.5-14.5) Platelet Count 312 x10^3/uL (140-400) 249 x10^3/uL (140-400) Neutrophils (%) (Auto) 88 % (31-73) 59 % (31-73) Lymphocytes (%) (Auto) 8 % (24-48) 34 % (24-48) Monocytes (%) (Auto) 3 % (0-9) 6 % (0-9) Eosinophils (%) (Auto) 0 % (0-3) 1 % (0-3) Basophils (%) (Auto) 1 % (0-3) 0 % (0-3) Neutrophils # (Auto) 10.6 x10^3/uL (1.8-7.7) 4.9 x10^3/uL (1.8-7.7) Lymphocytes # (Auto) 1.0 x10^3/uL (1.0-4.8) 2.9 x10^3/uL (1.0-4.8) Monocytes # (Auto) 0.4 x10^3/uL (0.0-1.1) 0.5 x10^3/uL (0.0-1.1) Eosinophils # (Auto) 0.0 x10^3/uL (0.0-0.7) 0.1 x10^3/uL (0.0-0.7) Basophils # (Auto) 0.1 x10^3/uL (0.0-0.2) 0.0 x10^3/uL (0.0-0.2) Segmented Neutrophils % 77 % (35-66) Band Neutrophils % 8 % (0-9) Lymphocytes % 12 % (24-48) Atypical Lymphocytes % (Manual) 2 % (0-0) Monocytes % 1 % (0-10) Toxic Vacuolation Slight Platelet Estimate Adequate (ADEQUATE) Large Platelets Few Polychromasia Slight Anisocytosis Slight Macrocytosis Marked Spherocytes Occ Tear Drop Cells Occ Stomatocytes Mod Fu[place] Bodies Present Schistocytes Occ RBC Morphology Bizarre Forms Occ Sodium Level 140 mmol/L (136-145) 142 mmol/L (136-145) Potassium Level 3.9 mmol/L (3.5-5.1) 3.6 mmol/L (3.5-5.1) Chloride Level 103 mmol/L (98-107) 107 mmol/L (98-107) Carbon Dioxide Level 26 mmol/L (21-32) 25 mmol/L (21-32) Anion Gap 11 (6-14) 10 (6-14) Blood Urea Nitrogen 13 mg/dL (7-20) 11 mg/dL (7-20) Creatinine 1.0 mg/dL (0.6-1.0) 0.8 mg/dL (0.6-1.0) Estimated GFR (Cockcroft-Gault) 68.4 88.5 BUN/Creatinine Ratio 13 (6-20) Glucose Level 137 mg/dL (70-99) 77 mg/dL (70-99) Lactic Acid Level 1.6 mmol/L (0.4-2.0) Calcium Level 9.2 mg/dL (8.5-10.1) 8.6 mg/dL (8.5-10.1) Total Bilirubin 0.7 mg/dL (0.2-1.0) Aspartate Amino Transf (AST/SGOT) 19 U/L (15-37) Alanine Aminotransferase (ALT/SGPT) 18 U/L (14-59) Alkaline Phosphatase 67 U/L (46-116) Total Protein 7.8 g/dL (6.4-8.2) Albumin 4.1 g/dL (3.4-5.0) Albumin/Globulin Ratio 1.1 (1.0-1.7) Thyroid Stimulating Hormone (TSH) 2.784 uIU/mL (0.358-3.74) Erythrocyte Sedimentation Rate 45 (0-25) C-Reactive Protein, Quantitative 30.9 mg/L (0-3.3) Laboratory Tests Test 06/20/19 03:55 White Blood Count 8.4 x10^3/uL (4.0-11.0) Red Blood Count 2.18 x10^6/uL (3.50-5.40) Hemoglobin 10.5 g/dL (12.0-15.5) Hematocrit 29.9 % (36.0-47.0) Mean Corpuscular Volume 137 fL (79-100) Mean Corpuscular Hemoglobin 48 pg (25-35) Mean Corpuscular Hemoglobin Concent 35 g/dL (31-37) Red Cell Distribution Width 16.4 % (11.5-14.5) Platelet Count 249 x10^3/uL (140-400) Neutrophils (%) (Auto) 59 % (31-73) Lymphocytes (%) (Auto) 34 % (24-48) Monocytes (%) (Auto) 6 % (0-9) Eosinophils (%) (Auto) 1 % (0-3) Basophils (%) (Auto) 0 % (0-3) Neutrophils # (Auto) 4.9 x10^3/uL (1.8-7.7) Lymphocytes # (Auto) 2.9 x10^3/uL (1.0-4.8) Monocytes # (Auto) 0.5 x10^3/uL (0.0-1.1) Eosinophils # (Auto) 0.1 x10^3/uL (0.0-0.7) Basophils # (Auto) 0.0 x10^3/uL (0.0-0.2) Erythrocyte Sedimentation Rate 45 (0-25) Sodium Level 142 mmol/L (136-145) Potassium Level 3.6 mmol/L (3.5-5.1) Chloride Level 107 mmol/L (98-107) Carbon Dioxide Level 25 mmol/L (21-32) Anion Gap 10 (6-14) Blood Urea Nitrogen 11 mg/dL (7-20) Creatinine 0.8 mg/dL (0.6-1.0) Estimated GFR (Cockcroft-Gault) 88.5 Glucose Level 77 mg/dL (70-99) Calcium Level 8.6 mg/dL (8.5-10.1) C-Reactive Protein, Quantitative 30.9 mg/L (0-3.3) Medications Current Medications Sodium Chloride 1,000 ml @ 1,000 mls/hr 1X STAT IV Last administered on 06/19/19at 16:12; Start 06/19/19 at 15:48; Stop 06/19/19 at 16:47; Status DC Clindamycin Phosphate 50 ml @ 100 mls/hr 1X STAT IV Last administered on 06/19/19at 16:12; Start 06/19/19 at 15:48; Stop 06/19/19 at 16:17; Status DC Lidocaine HCl 20 ml 1X STAT IJ Last administered on 06/19/19at 16:28; Start 06/19/19 at 16:24; Stop 06/19/19 at 16:25; Status DC Ondansetron HCl (Zofran) 4 mg PRN Q8HRS PRN IV NAUSEA/VOMITING; Start 06/19/19 at 17:00; Stop 06/20/19 at 02:14; Status DC Fentanyl Citrate (Fentanyl 2ml Vial) 50 mcg 1X STAT IV Last administered on 06/19/19at 17:41; Start 06/19/19 at 17:13; Stop 06/19/19 at 17:15; Status DC Tramadol HCl (Ultram) 50 mg PRN Q6HRS PRN PO MILD PAIN 1-3; Start 06/19/19 at 17:45; Stop 06/20/19 at 02:13; Status DC Acetaminophen/ Hydrocodone Bitart (Lortab 5/325) 1 tab PRN Q4HRS PRN PO MODERATE PAIN Last administered on 06/20/19at 14:25; Start 06/19/19 at 17:45 Morphine Sulfate (Morphine Sulfate) 2 mg PRN Q2HR PRN IV PAIN; Start 06/19/19 at 17:45 Vitamin D (Vitamin D3) 2,000 unit DAILY PO Last administered on 06/20/19at 08:34; Start 06/20/19 at 09:00 Levothyroxine Sodium (Synthroid) 88 mcg DAILY06 PO Last administered on at 05:18; Start 06/20/19 at 06:00 Pantoprazole Sodium (Protonix) 40 mg DAILYAC PO Last administered on 06/20/19at 08:34; Start 06/20/19 at 07:30 Tramadol HCl (Ultram) 50 mg PRN Q6HRS PRN PO MILD PAIN 1-3; Start 06/19/19 at 20:30 Ondansetron HCl (Zofran) 4 mg PRN Q4HRS PRN IV NAUSEA/VOMITING 1ST CHOICE; Start 06/19/19 at 20:30 Zolpidem Tartrate (Ambien) 5 mg PRN QHS PRN PO INSOMNIA; Start 06/19/19 at 20:30 Acetaminophen (Tylenol) 650 mg PRN Q4HRS PRN PO TEMP OVER 100.4F OR HEADACHE; Start 06/19/19 at 20:30 Docusate Sodium (Colace) 100 mg PRN BID PRN PO CONSTIPATION 1ST CHOICE; Start 06/19/19 at 20:30 Piperacillin Sod/ Tazobactam Sod 3.375 gm/Sodium Chloride 50 ml @ 100 mls/hr Q6HRS IV Last administered on 06/20/19at 11:39; Start 06/20/19 at 00:00 Vancomycin HCl 2 gm/Sodium Chloride 500 ml @ 250 mls/hr 1X ONCE IV Last administered on 06/19/19at 21:14; Start 06/19/19 at 21:00; Stop 06/19/19 at 22:59; Status DC Vancomycin HCl (Vanco Per Pharmacy) 1 each PRN DAILY PRN MC SEE COMMENTS Last administered on 06/20/19at 15:55; Start 06/19/19 at 20:30 Enoxaparin Sodium (Lovenox 40mg Syringe) 40 mg Q24H SQ ; Start 06/19/19 at 21:00; Stop 06/19/19 at 20:40; Status DC Enoxaparin Sodium (Lovenox 40mg Syringe) 40 mg BID SQ ; Start 06/19/19 at 21:00 Cyanocobalamin (Vitamin B-12) 1,000 mcg DAILY PO Last administered on 06/20/19at 08:34; Start 06/20/19 at 09:00 Vancomycin HCl 1.75 gm/Sodium Chloride 500 ml @ 250 mls/hr Q12H IV Last administered on 06/20/19at 08:34; Start 06/20/19 at 09:00 Vancomycin HCl (Vancomycin Trough Level) 1 each 1X ONCE MC ; Start 06/21/19 at 08:30; Stop 06/21/19 at 08:31 Lactobacillus Rhamnosus (Culturelle) 1 cap BID PO Last administered on 06/20/19at 08:34; Start 06/20/19 at 09:00 Gadoterate Meglumine (Dotarem) 10 ml 1X ONCE IVP Last administered on 06/20/19at 12:31; Start 06/20/19 at 12:45; Stop 06/20/19 at 12:46; Status DC Gadoterate Meglumine (Dotarem) 15 ml 1X ONCE IVP Last administered on 06/20/19at 12:30; Start 06/20/19 at 12:15; Stop 06/20/19 at 12:19; Status DC Active Scripts Active Reported Tramadol Hcl 50 Mg Tablet 1 Tab PO PRN Q6HRS Pantoprazole Sodium (Pantoprazole Sodium) 40 Mg Tablet.dr 1 Tab PO DAILY Vitamin D3 (Cholecalciferol (Vitamin D3)) 1,000 Unit Tablet 2,000 Unit PO DAILY Alendronate Sodium 35 Mg Tablet 1 Tab PO WEEKLY Synthroid (Levothyroxine Sodium) 88 Mcg Tablet 88 Mcg PO DAILYAC Vitals/I & O Vital Sign - Last 24 Hours 06/19/19 06/19/19 06/19/19 06/19/19 16:30 17:00 17:30 17:41 Pulse 94 80 84 Resp 18 14 16 18 B/P (MAP) 160/88 (112) 175/87 (116) 169/88 (115) Pulse Ox 98 98 96 98 O2 Delivery Room Air Room Air Room Air Room Air 06/19/19 06/19/19 06/19/19 06/19/19 18:20 19:50 20:00 23:26 Temp 98.8 98.4 98.8 98.4 Pulse 84 89 Resp 20 20 B/P (MAP) 184/85 (118) 124/55 (78) Pulse Ox 97 98 O2 Delivery Room Air Room Air Room Air Room Air 06/19/19 06/20/19 06/20/19 06/20/19 23:42 00:26 03:33 05:22 Temp 98.6 98.1 98.6 98.1 Pulse 85 72 Resp 20 18 B/P (MAP) 103/56 (72) 104/69 (81) Pulse Ox 96 94 O2 Delivery Room Air Room Air Room Air Room Air 06/20/19 06/20/19 06/20/19 06/20/19 07:00 07:17 08:00 09:48 Temp 98.0 98.0 Pulse 90 Resp 18 16 16 B/P (MAP) 110/63 (79) Pulse Ox 100 O2 Delivery Room Air Room Air Room Air Room Air 06/20/19 06/20/19 06/20/19 06/20/19 10:54 11:00 14:25 15:17 Temp 97.8 97.8 Pulse 69 Resp 16 18 16 16 B/P (MAP) 90/51 (64) Pulse Ox 96 O2 Delivery Room Air Room Air Room Air Nasal Cannula O2 Flow Rate 3.0 Intake and Output 06/19/19 06/19/19 06/20/19 15:00 23:00 07:00 Intake Total 1300 ml 150 ml Balance 1300 ml 150 ml LANCE NORTH MD Jun 20, 2019 16:08
--- NOTE | 2019-06-20 17:19 | RAD ---
Study: MRI right ankle with and without contrast INDICATION: Ankle abscess. COMPARISON: None. TECHNIQUE: Multiplanar MR imaging of the right ankle performed prior to and after the intravenous demonstration of 25 cc Dotarem. FINDINGS: Bones/cartilage: No acute fracture. No signal changes of osteomyelitis. Incomplete fat suppression noted at the periphery of the lateral malleolus. Plantar calcaneal spur. Scattered very mild degenerative changes. No focal full-thickness chondral loss at the ankle. Ligaments: Intact syndesmotic ligaments. Intact ATFL, CFL and PTFL. Intact deltoid ligament complex. Intact spring ligament. Musculotendinous: Intact flexor tendons. Intact peroneal tendons. Intact extensor tendons. Mild distal Achilles tendinosis. Sinus Tarsi: Partial replacement by edema-like signal. Tarsal tunnel: Unremarkable. Plantar fascia: Thickening of the plantar fascia central band with internal signal elevation proximally, a thin T2 hyperintense cleft at its calcaneal attachment and minimal edema within a plantar calcaneal spur, image 12 series 8. Miscellaneous: Subcutaneous edema with overlying skin thickening and enhancement at the medial ankle/distal leg and extending along the medial aspect of the foot. Superimposed small developing abscess, image 14 series 11, measuring 1.2 cm AP by 0.5 cm transverse by 1.8 cm craniocaudal. The presence of heterogeneous internal signal on the T2 sequences suggests that this may not be easily drainable. Tiny foci of internal susceptibility artifact likely a trace amount of gas, image 10 series 10. Lobulated ganglion cyst emanating from the region of the PTFL measuring 1.9 cm transverse by 1.3 cm AP by 2.0 cm craniocaudal. Very small amount of retrocalcaneal bursal fluid. IMPRESSION: 1. Cellulitis along the medial aspect of the lower leg, ankle and extending along the medial foot with a superimposed small developing abscess measuring 1.2 x 0.5 x 1.8 cm. Likely a tiny amount of gas within this collection. Note is made that this collection does not exhibit confluent fluid signal internally and may be difficult to drain at this time. No fluid collection seen elsewhere. No findings of osteomyelitis. 2. Findings in keeping with mild plantar fasciitis. 3. Mild distal Achilles tendinosis. 4. Lobulated ganglion cyst emanating from the posterior aspect of ankle from the lateral gutter measuring up to 2 cm in maximum dimension. Electronically signed by: TONI BOO MD (06/20/2019 5:17 PM) [id number]
[2019-06-20 19:40] VITALS: BP 121/79
[2019-06-20 22:55] VITALS: BP 103/76
[2019-06-21] MEDS: PIPERACILLIN/TAZOBACTAM 3.375 GM in IV NORMAL SALINE 50ML 50 ML IV SCH ×4 (01:00→17:38)
[2019-06-21 02:07] LABS: HEMOGLOBIN A1C 5.6 % (4.8-5.6)
[2019-06-21 03:15] VITALS: BP 107/56
[2019-06-21] MEDS: HYDROcodone/APAP 5/325MG 1 TAB TABLET PO PRN ×3 (05:05→21:24)
[2019-06-21] MEDS: LEVOTHYROXINE 88 MCG TABLET PO SCH (06:19)
[2019-06-21 07:00] VITALS: BP 150/93
--- NOTE | 2019-06-21 07:40 | PDOC ---
Infectious Disease Note Subjective Subjective 2 spots still painful but ankle feels better No F/C/S/N/V/D/rash. + Flatus ROS ROS o/w neg Vital Sign Vital Signs Vital Signs Date Time Temp Pulse Resp B/P (MAP) Pulse Ox O2 Delivery O2 Flow Rate FiO2 06/21/19 06:05 20 Room Air 06/21/19 03:15 98.1 74 107/56 (73) 98 98.1 06/20/19 15:17 3.0 Physical Exam PHYSICAL EXAM CONSTITUTIONAL: She is pleasant, cooperative. She is in no acute distress. She is sitting upright in bed. HEENT: Pupils are equal and reactive. She had normal conjunctivae. Oral cavity, pharynx was clear. NECK: Supple. Good range of motion. No JVD. LUNGS: Clear. HEART: S1, S2. ABDOMEN: Soft, nontender, no guarding or rebound. EXTREMITIES: Without clubbing, cyanosis. She has 1+ lower extremity edema to her right area, on the lateral aspect she has a small sized area. There is no gross drainage. She has three discrete lesions, one was up in the middle third of her tibia in the anterior medial aspect now less red and looking pustular and the one just above her ankle is somewhat fluctuant. They are well circumscribed approximately a centimeter and half and painful- ankle is better and packed SKIN: Without generalized signs of rash. NEUROLOGIC: She is nonfocal. PSYCHIATRIC: Affect is appropriate. Labs Micro MRI- 06/20 IMPRESSION: 1. Cellulitis along the medial aspect of the lower leg, ankle and extending along the medial foot with a superimposed small developing abscess measuring 1.2 x 0.5 x 1.8 cm. Likely a tiny amount of gas within this collection. Note is made that this collection does not exhibit confluent fluid signal internally and may be difficult to drain at this time. No fluid collection seen elsewhere. No findings of osteomyelitis. 2. Findings in keeping with mild plantar fasciitis. 3. Mild distal Achilles tendinosis. 4. Lobulated ganglion cyst emanating from the posterior aspect of ankle from the lateral gutter measuring up to 2 cm in maximum dimension. Microbiology 06/19/19 Blood Culture - Preliminary, Resulted NO GROWTH AFTER 1 DAY Objective Assessment RLE cellulitis RLE abscess s/p I and D in ER 06/19 MRI reviewed - small fluid collection - no Osteo Leukocytosis - better Leg nodules - Erythema Nodsum Plan Plan of Care Agree with Stephen/Pollo for now F/u labs and cults Ortho eval for ankle/cyst and for potential drainage of superficial abscess CHELITA JHAVERI MD Jun 21, 2019 07:40
[2019-06-21 07:46] LABS: BASO % 1 % (0-3); EOS # 0.2 x10^3/uL (0.0-0.7); EOS % 3 % (0-3); HEMATOCRIT 29.8 % (36.0-47.0); HEMOGLOBIN 10.2 g/dL (12.0-15.5); LYMPH # 2.1 x10^3/uL (1.0-4.8); LYMPH % 36 % (24-48); MEAN CORPUSCULAR HEMOGLOBIN 47 pg (25-35); MEAN CORPUSCULAR HGB CONC 34 g/dL (31-37); MEAN CORPUSCULAR VOLUME 137 fL (79-100); MONO # 0.6 x10^3/uL (0.0-1.1); MONO % 10 % (0-9); NEUT % 51 % (31-73); PLATELET COUNT 269 x10^3/uL (140-400); RED BLOOD COUNT 2.17 x10^6/uL (3.50-5.40); RED CELL DISTRIBUTION WIDTH 16.3 % (11.5-14.5); WHITE BLOOD COUNT 5.9 x10^3/uL (4.0-11.0)
[2019-06-21 07:58] LABS: CALCIUM 8.1 mg/dL (8.5-10.1); CREATININE 0.9 mg/dL (0.6-1.0); GFR 77.3; POTASSIUM 3.9 mmol/L (3.5-5.1)
[2019-06-21] MEDS: CYANOCOBALAMIN (VITAMIN B-12) 1,000 MCG TABLET. PO SCH (09:54)
[2019-06-21] MEDS: CHOLECALCIFEROL (VITAMIN D3) 1,000 UNIT TABLET PO SCH (09:54)
[2019-06-21] MEDS: PANTOPRAZOLE 40 MG TABLET.DR. PO SCH (09:54)
[2019-06-21] MEDS: LACTOBACILLUS RHAMNOSUS GG 1 CAPSULE. PO SCH ×2 (09:54→21:24)
[2019-06-21] MEDS: ENOXAPARIN 40 MG/0.4 ML SYRINGE. SQ SCH ×2 (09:56→21:00)
[2019-06-21 11:00] VITALS: BP 120/74
--- NOTE | 2019-06-21 11:08 | PDOC2 ---
CONSULT Date of Consult Date of Consult DATE: 06/21/19 TIME: 11:03 Reason for Consult Reason for Consult: Right leg abscess Identification/Chief Complaint Chief Complaint Right leg fluid collection/abscesses Source Source: Chart review, Patient History of Present Illness Reason for Visit: This 58-year-old woman was admitted to the hospital with 3 discrete abscesses on the leg. One of them was drained in the ER, the most medial distal one, near the ankle, and it has been packed already. This is the lesion that is imaged on the MRI. I don't think the 2 more proximal lesions made it to the imaging field. She said the drainage she had in the ER was the most painful thing she has ever encountered. We discussed possible bedside incision and drainage of the other 2 abscesses on the upper portion of the lower leg, closer to the knee, and she would rather do that in the operating room if possible. I do agree, this could be done more thoroughly in the operating room, under better sterile conditions, and with much less pain to her. She doesn't have any cats or dogs, and denies any specific injury that may have caused these. I reviewed her history with Dr. Medina as follows. Ms Corley is a 58yo F w/ PMHx Hypothyroidism, osteoporosis, vit D deficiency who presents with right leg pain has been for 2 weeks. The patient states she's been having difficulty walking the right leg due to the pain. The patient states that the pain is worsening. The patient was seen by primary care doctor and was given some "pills" last week and today was sent to the ER (she was given acyclovir, then valtrex the following week). She thinks she has not been on antibiotics, thinks she has been on prednisone. Denies running any fevers or recent sick contacts She does note dermatitis of her lower extremities previously, had biopsy with dermatology and was told it was indeterminate, not cancerous. Her rash on her right lower extremity is red, swollen, painful and has 3 discrete red raised 2x4 cm circumferential lesions associated. WBC: 12.1, Cr 1, Glucose 137, Lactic: 1.6 Ultrasound shows abscess to ankle and no signs of DVT. I&D performed in ED, given clindamycin IV and as she is unable to bear weight and failed 2 weeks of outpatient treatment called for admission for further treatment Past Medical History Cardiovascular: No pertinent hx Pulmonary: No pertinent hx GI: No pertinent hx Heme/Onc: No pertinent hx Hepatobiliary: No pertinent hx Psych: No pertinent hx Rheumatologic: No pertinent hx Infectious disease: No pertinent hx ENT: No pertinent hx Renal/: No pertinent hx Endocrine: Hypothyroidism Dermatology: No pertinent hx Past Surgical History Past Surgical History: , Tubal Ligation Family History Family History: Hypertension Social History No ALCOHOL: none Drugs: None Current Problem List Problem List Problems Medical Problems: (1) Cellulitis and abscess of leg Status: Acute Current Medications Current Medications Current Medications Sodium Chloride 1,000 ml @ 1,000 mls/hr 1X STAT IV Last administered on 06/19/19at 16:12; Start 06/19/19 at 15:48; Stop 06/19/19 at 16:47; Status DC Clindamycin Phosphate 50 ml @ 100 mls/hr 1X STAT IV Last administered on 06/19/19at 16:12; Start 06/19/19 at 15:48; Stop 06/19/19 at 16:17; Status DC Lidocaine HCl 20 ml 1X STAT IJ Last administered on 06/19/19at 16:28; Start 06/19/19 at 16:24; Stop 06/19/19 at 16:25; Status DC Ondansetron HCl (Zofran) 4 mg PRN Q8HRS PRN IV NAUSEA/VOMITING; Start 06/19/19 at 17:00; Stop 06/20/19 at 02:14; Status DC Fentanyl Citrate (Fentanyl 2ml Vial) 50 mcg 1X STAT IV Last administered on 06/19/19at 17:41; Start 06/19/19 at 17:13; Stop 06/19/19 at 17:15; Status DC Tramadol HCl (Ultram) 50 mg PRN Q6HRS PRN PO MILD PAIN 1-3; Start 06/19/19 at 17:45; Stop 06/20/19 at 02:13; Status DC Acetaminophen/ Hydrocodone Bitart (Lortab 5/325) 1 tab PRN Q4HRS PRN PO MODERATE PAIN Last administered on 06/21/19at 05:05; Start 06/19/19 at 17:45 Morphine Sulfate (Morphine Sulfate) 2 mg PRN Q2HR PRN IV PAIN; Start 06/19/19 at 17:45 Vitamin D (Vitamin D3) 2,000 unit DAILY PO Last administered on 06/21/19at 09 :54; Start 06/20/19 at 09:00 Levothyroxine Sodium (Synthroid) 88 mcg DAILY06 PO Last administered on 06/21/19at 06:19; Start 06/20/19 at 06:00 Pantoprazole Sodium (Protonix) 40 mg DAILYAC PO Last administered on 06/21/19at 09:54; Start 06/20/19 at 07:30 Tramadol HCl (Ultram) 50 mg PRN Q6HRS PRN PO MILD PAIN 1-3; Start 06/19/19 at 20:30 Ondansetron HCl (Zofran) 4 mg PRN Q4HRS PRN IV NAUSEA/VOMITING 1ST CHOICE; Start 06/19/19 at 20:30 Zolpidem Tartrate (Ambien) 5 mg PRN QHS PRN PO INSOMNIA; Start 06/19/19 at 20:30 Acetaminophen (Tylenol) 650 mg PRN Q4HRS PRN PO TEMP OVER 100.4F OR HEADACHE; Start 06/19/19 at 20:30 Docusate Sodium (Colace) 100 mg PRN BID PRN PO CONSTIPATION 1ST CHOICE; Start 06/19/19 at 20:30 Piperacillin Sod/ Tazobactam Sod 3.375 gm/Sodium Chloride 50 ml @ 100 mls/hr Q6HRS IV Last administered on 06/21/19at 06:19; Start 06/20/19 at 00:00 Vancomycin HCl 2 gm/Sodium Chloride 500 ml @ 250 mls/hr 1X ONCE IV Last administered on 06/19/19at 21:14; Start 06/19/19 at 21:00; Stop 06/19/19 at 22: 59; Status DC Vancomycin HCl (Vanco Per Pharmacy) 1 each PRN DAILY PRN MC SEE COMMENTS Last administered on 06/20/19at 15:55; Start 06/19/19 at 20:30 Enoxaparin Sodium (Lovenox 40mg Syringe) 40 mg Q24H SQ ; Start 06/19/19 at 21:00; Stop 06/19/19 at 20:40; Status DC Enoxaparin Sodium (Lovenox 40mg Syringe) 40 mg BID SQ Last administered on 06/21/19at 09:56; Start 06/19/19 at 21:00 Cyanocobalamin (Vitamin B-12) 1,000 mcg DAILY PO Last administered on 06/21/19at 09:54; Start 06/20/19 at 09:00 Vancomycin HCl 1.75 gm/Sodium Chloride 500 ml @ 250 mls/hr Q12H IV Last administered on 06/20/19at 21:03; Start 06/20/19 at 09:00; Stop 06/21/19 at 07:09; Status DC Vancomycin HCl (Vancomycin Trough Level) 1 each 1X ONCE MC ; Start 06/21/19 at 08:30; Stop 06/21/19 at 08:31; Status Cancel Lactobacillus Rhamnosus (Culturelle) 1 cap BID PO Last administered on 06/21/19at 09:54; Start 06/20/19 at 09:00 Gadoterate Meglumine (Dotarem) 10 ml 1X ONCE IVP Last administered on 06/20/19at 12:31; Start 06/20/19 at 12:45; Stop 06/20/19 at 12:46; Status DC Gadoterate Meglumine (Dotarem) 15 ml 1X ONCE IVP Last administered on 06/20/19at 12:30; Start 06/20/19 at 12:15; Stop 06/20/19 at 12:19; Status DC Vancomycin HCl 1.75 gm/Sodium Chloride 500 ml @ 250 mls/hr Q12H IV ; Start at 20:00 Vancomycin HCl (Vancomycin Trough Level) 1 each 1X ONCE MC ; Start 06/22/19 at 19:30; Stop 06/22/19 at 19:31 Active Scripts Active Reported Tramadol Hcl 50 Mg Tablet 1 Tab PO PRN Q6HRS Pantoprazole Sodium (Pantoprazole Sodium) 40 Mg Tablet.dr 1 Tab PO DAILY Vitamin D3 (Cholecalciferol (Vitamin D3)) 1,000 Unit Tablet 2,000 Unit PO DAILY Alendronate Sodium 35 Mg Tablet 1 Tab PO WEEKLY Synthroid (Levothyroxine Sodium) 88 Mcg Tablet 88 Mcg PO DAILYAC Allergies Allergies: Coded Allergies: No Known Drug Allergies (Unverified , 03/13/16) Physical Exam General: Alert, Cooperative HEENT: Atraumatic Lungs: Normal air movement Heart: Regular rate Abdomen: Soft Extremities: Other (she has a dressing over the right ankle medially, with small abscess superficially and some packing. She has 2 more discrete abscesses, one in the bathroom mid tibia and one more proximally, both of which seem superficial, quite tender, erythematous, and slightly fluctuant. She has a good dorsalis pedis pulse and normal sensation in the foot. Normal neurovascular function distally. No evidence of compartment syndrome. There is mild cellulitis of the leg, mostly around the areas of the abscesses. I examined the posterior ankle, where she has a ganglion on the imaging, and this is asymptomatic and not palpable.) Skin: Other (abscess lesions as above.) Neuro: Normal speech, Sensation intact Psych/Mental Status: Mental status NL, Mood NL Vitals VITALS Vital Signs Date Time Temp Pulse Resp B/P (MAP) Pulse Ox O2 Delivery O2 Flow Rate FiO2 06/21/19 07:00 98.1 95 18 150/93 (112) 99 Nasal Cannula 98.1 06/20/19 15:17 3.0 Labs Labs Laboratory Tests Test 06/19/19 15:30 06/20/19 03:55 06/21/19 07:26 White Blood Count 12.1 x10^3/uL (4.0-11.0) 8.4 x10^3/uL (4.0-11.0) 5.9 x10^3/uL (4.0-11.0) Red Blood Count 2.59 x10^6/uL (3.50-5.40) 2.18 x10^6/uL (3.50-5.40) 2.17 x10^6/uL (3.50-5.40) Hemoglobin 12.2 g/dL (12.0-15.5) 10.5 g/dL (12.0-15.5) 10.2 g/dL (12.0-15.5) Hematocrit 35.2 % (36.0-47.0) 29.9 % (36.0-47.0) 29.8 % (36.0-47.0) Mean Corpuscular Volume 136 fL (79-100) 137 fL (79-100) 137 fL (79-100) Mean Corpuscular Hemoglobin 47 pg (25-35) 48 pg (25-35) 47 pg (25-35) Mean Corpuscular Hemoglobin Concent 35 g/dL (31-37) 35 g/dL (31-37) 34 g/dL (31-37) Red Cell Distribution Width 15.9 % (11.5-14.5) 16.4 % (11.5-14.5) 16.3 % (11.5-14.5) Platelet Count 312 x10^3/uL (140-400) 249 x10^3/uL (140-400) 269 x10^3/uL (140-400) Neutrophils (%) (Auto) 88 % (31-73) 59 % (31-73) 51 % (31-73) Lymphocytes (%) (Auto) 8 % (24-48) 34 % (24-48) 36 % (24-48) Monocytes (%) (Auto) 3 % (0-9) 6 % (0-9) 10 % (0-9) Eosinophils (%) (Auto) 0 % (0-3) 1 % (0-3) 3 % (0-3) Basophils (%) (Auto) 1 % (0-3) 0 % (0-3) 1 % (0-3) Neutrophils # (Auto) 10.6 x10^3/uL (1.8-7.7) 4.9 x10^3/uL (1.8-7.7) 3.0 x10^3/uL (1.8-7.7) Lymphocytes # (Auto) 1.0 x10^3/uL (1.0-4.8) 2.9 x10^3/uL (1.0-4.8) 2.1 x10^3/uL (1.0-4.8) Monocytes # (Auto) 0.4 x10^3/uL (0.0-1.1) 0.5 x10^3/uL (0.0-1.1) 0.6 x10^3/uL (0.0-1.1) Eosinophils # (Auto) 0.0 x10^3/uL (0.0-0.7) 0.1 x10^3/uL (0.0-0.7) 0.2 x10^3/uL (0.0-0.7) Basophils # (Auto) 0.1 x10^3/uL (0.0-0.2) 0.0 x10^3/uL (0.0-0.2) 0.0 x10^3/uL (0.0-0.2) Segmented Neutrophils % 77 % (35-66) Band Neutrophils % 8 % (0-9) Lymphocytes % 12 % (24-48) Atypical Lymphocytes % (Manual) 2 % (0-0) Monocytes % 1 % (0-10) Toxic Vacuolation Slight Platelet Estimate Adequate (ADEQUATE) Large Platelets Few Polychromasia Slight Anisocytosis Slight Macrocytosis Marked Spherocytes Occ Tear Drop Cells Occ Stomatocytes Mod Fu-[place] Bodies Present Schistocytes Occ RBC Morphology Bizarre Forms Occ Sodium Level 140 mmol/L (136-145) 142 mmol/L (136-145) 144 mmol/L (136-145) Potassium Level 3.9 mmol/L (3.5-5.1) 3.6 mmol/L (3.5-5.1) 3.9 mmol/L (3.5-5.1) Chloride Level 103 mmol/L (98-107) 107 mmol/L (98-107) 110 mmol/L (98-107) Carbon Dioxide Level 26 mmol/L (21-32) 25 mmol/L (21-32) 26 mmol/L (21-32) Anion Gap 11 (6-14) 10 (6-14) 8 (6-14) Blood Urea Nitrogen 13 mg/dL (7-20) 11 mg/dL (7-20) 11 mg/dL (7-20) Creatinine 1.0 mg/dL (0.6-1.0) 0.8 mg/dL (0.6-1.0) 0.9 mg/dL (0.6-1.0) Estimated GFR (Cockcroft-Gault) 68.4 88.5 77.3 BUN/Creatinine Ratio 13 (6-20) Glucose Level 137 mg/dL (70-99) 77 mg/dL (70-99) 101 mg/dL (70-99) Hemoglobin A1c 5.6 % (4.8-5.6) Lactic Acid Level 1.6 mmol/L (0.4-2.0) Calcium Level 9.2 mg/dL (8.5-10.1) 8.6 mg/dL (8.5-10.1) 8.1 mg/dL (8.5-10.1) Total Bilirubin 0.7 mg/dL (0.2-1.0) Aspartate Amino Transf (AST/SGOT) 19 U/L (15-37) Alanine Aminotransferase (ALT/SGPT) 18 U/L (14-59) Alkaline Phosphatase 67 U/L (46-116) Total Protein 7.8 g/dL (6.4-8.2) Albumin 4.1 g/dL (3.4-5.0) Albumin/Globulin Ratio 1.1 (1.0-1.7) Thyroid Stimulating Hormone (TSH) 2.784 uIU/mL (0.358-3.74) Erythrocyte Sedimentation Rate 45 (0-25) C-Reactive Protein, Quantitative 30.9 mg/L (0-3.3) Vitamin B12 Level > 2000 pg/mL (247-911) Laboratory Tests Test 06/21/19 07:26 White Blood Count 5.9 x10^3/uL (4.0-11.0) Red Blood Count 2.17 x10^6/uL (3.50-5.40) Hemoglobin 10.2 g/dL (12.0-15.5) Hematocrit 29.8 % (36.0-47.0) Mean Corpuscular Volume 137 fL (79-100) Mean Corpuscular Hemoglobin 47 pg (25-35) Mean Corpuscular Hemoglobin Concent 34 g/dL (31-37) Red Cell Distribution Width 16.3 % (11.5-14.5) Platelet Count 269 x10^3/uL (140-400) Neutrophils (%) (Auto) 51 % (31-73) Lymphocytes (%) (Auto) 36 % (24-48) Monocytes (%) (Auto) 10 % (0-9) Eosinophils (%) (Auto) 3 % (0-3) Basophils (%) (Auto) 1 % (0-3) Neutrophils # (Auto) 3.0 x10^3/uL (1.8-7.7) Lymphocytes # (Auto) 2.1 x10^3/uL (1.0-4.8) Monocytes # (Auto) 0.6 x10^3/uL (0.0-1.1) Eosinophils # (Auto) 0.2 x10^3/uL (0.0-0.7) Basophils # (Auto) 0.0 x10^3/uL (0.0-0.2) Sodium Level 144 mmol/L (136-145) Potassium Level 3.9 mmol/L (3.5-5.1) Chloride Level 110 mmol/L (98-107) Carbon Dioxide Level 26 mmol/L (21-32) Anion Gap 8 (6-14) Blood Urea Nitrogen 11 mg/dL (7-20) Creatinine 0.9 mg/dL (0.6-1.0) Estimated GFR (Cockcroft-Gault) 77.3 Glucose Level 101 mg/dL (70-99) Calcium Level 8.1 mg/dL (8.5-10.1) Images Images MRI report reviewed, images independently reviewed. Subcutaneous circumscribed lesion series 11 image 14. [facility] [address] [place] [address] IMAGING REPORT Signed PATIENT: INDIRA CORLEY ACCOUNT: [id number] : 1960 LOCATION: [address] [place] [address] AGE: 58 SEX: F EXAM STATUS: ADM IN ORD. PHYSICIAN: CHELITA JHAVERI MD REASON: ankle abscess /25mL DOTAREM PROCEDURE: LOWER EXT JOINT WO/W RIGHT Study: MRI right ankle with and without contrast INDICATION: Ankle abscess. COMPARISON: None. TECHNIQUE: Multiplanar MR imaging of the right ankle performed prior to and after the intravenous demonstration of 25 cc Dotarem. FINDINGS: Bones/cartilage: No acute fracture. No signal changes of osteomyelitis. Incomplete fat suppression noted at the periphery of the lateral malleolus. Plantar calcaneal spur. Scattered very mild degenerative changes. No focal full-thickness chondral loss at the ankle. Ligaments: Intact syndesmotic ligaments. Intact ATFL, CFL and PTFL. Intact deltoid ligament complex. Intact spring ligament. Musculotendinous: Intact flexor tendons. Intact peroneal tendons. Intact extensor tendons. Mild distal Achilles tendinosis. Sinus Tarsi: Partial replacement by edema-like signal. Tarsal tunnel: Unremarkable. Plantar fascia: Thickening of the plantar fascia central band with internal signal elevation proximally, a thin T2 hyperintense cleft at its calcaneal attachment and minimal edema within a plantar calcaneal spur, image 12 series 8. Miscellaneous: Subcutaneous edema with overlying skin thickening and enhancement at the medial ankle/distal leg and extending along the medial aspect of the foot. Superimposed small developing abscess, image 14 series 11, measuring 1.2 cm AP by 0.5 cm transverse by 1.8 cm craniocaudal. The presence of heterogeneous internal signal on the T2 sequences suggests that this may not be easily drainable. Tiny foci of internal susceptibility artifact likely a trace amount of gas, image 10 series 10. Lobulated ganglion cyst emanating from the region of the PTFL measuring 1.9 cm transverse by 1.3 cm AP by 2.0 cm craniocaudal. Very small amount of retrocalcaneal bursal fluid. IMPRESSION: 1. Cellulitis along the medial aspect of the lower leg, ankle and extending along the medial foot with a superimposed small developing abscess measuring 1.2 x 0.5 x 1.8 cm. Likely a tiny amount of gas within this collection. Note is made that this collection does not exhibit confluent fluid signal internally and may be difficult to drain at this time. No fluid collection seen elsewhere. No findings of osteomyelitis. 2. Findings in keeping with mild plantar fasciitis. 3. Mild distal Achilles tendinosis. 4. Lobulated ganglion cyst emanating from the posterior aspect of ankle from the lateral gutter measuring up to 2 cm in maximum dimension. Electronically signed by: TONI BOO MD (06/20/2019 5:17 PM) [id number] DICTATED and SIGNED BY: TONI BOO MD DATE: 06/20/19 1717 [facility] [address] [place] [address] IMAGING REPORT Signed PATIENT: INDIRA CORLEY ACCOUNT: [id number] : 1960 LOCATION: ER AGE: 58 SEX: F EXAM STATUS: REG ER ORD. PHYSICIAN: KARRI KWON APRN REASON: edema and erythema R leg abscess vs dvt PROCEDURE: VENOUS LOWER EXTREMITY RIGHT VENOUS LOWER EXTREMITY RIGHT History: Edema. Erythema. Right leg abscess versus DVT. Comparison: None. Discussion: Multiple longitudinal and transverse high resolution real-time images of the venous system of right lower extremity were obtained with color and Doppler sampling. The common femoral, superficial femoral, popliteal and proximal calf veins are all patent and demonstrate normal flow and compressibility. Normal respiratory phasicity and augmentation is present. Right lower extremity subcutaneous edema. Complex fluid collection within the right medial lower leg at the level of the ankle measures 2.4 x 2.1 x 0.8 cm. Impression: 1. No evidence of deep vein thrombosis within the right lower extremity. 2. Complex fluid collection medial to the right ankle, may represent abscesses if concern for infection. Electronically signed by: Braxton Vyas DO (06/19/2019 4:16 PM) [id number] DICTATED and SIGNED BY: BRAXTON VYAS DO DATE: 06/19/19 1616 Assessment/Plan Assessment/Plan She has 3 discrete lower leg abscesses. One of these has been drained already but is still painful. This is the one seen on imaging. I talked to her about the option of bedside incision and drainage versus operating room incision and drainage. She said the bedside drainage she had done in the ER was the most painful thing she has ever encountered and would prefer to go to the operating room. I agree, this could be done more thoroughly in the operating room, as she would be asleep and I could do a more thorough debridement of all 3 lesions and would repeat irrigation of the most distal lesion. Under anesthesia this would be less painful, and the operating room environment is more sterile. All of these would lead to less likely recurrence. She states understanding of the risks benefits and alternatives operating room incision and drainage of the multiple right leg abscesses and I'll schedule this for tomorrow. She also has that posterior ankle joint ganglion on the MRI, but is asymptomatic at that location, and has no palpable ganglion and I recommended observation only of that lesion. Nothing by mouth after midnight for the abscess surgery tomorrow. MAIKOL GARZA MD Jun 21, 2019 11:07
--- NOTE | 2019-06-21 11:24 | NUR ---
SW following. Discussed with RN, pt having an ortho consult today. No PT/OT needs. SW will continue to follow for any discharge planning needs.
[2019-06-21] MEDS: VANCOMYCIN PER PHARMACY MC PRN (12:06)
[2019-06-21 15:00] VITALS: BP 117/52
--- NOTE | 2019-06-21 15:26 | PDOC ---
PROGRESS NOTES Chief Complaint Chief Complaint Impression and Plan: Right leg abscess - near right medial malleolus, s/p I&D and culture with blood cultures. Empiric clindamycin given, will treat with vancomycin and zosyn. Consult ID. Recommendations greatly appreciated Right leg cellulitis - spares the foot. Will raise extremity, wound care for compressive wrap if she can tolerate it. Red raised lesions - this appears like erythema nodosum in 2 locations. Will see how she responds to antibiotics (no history of GI issues or pulmonary issues, no sarcoid) Leukocytosis - with tachycardia and cellulitis with abscess this is sepsis, POA, given antibiotics and fluids. Will monitor Macrocytosis - she tells me she is on B12 replacement. Will verify Hypothyroidism - will cont meds Vitamin D insufficiency - will cont meds Elevated fasting glucose - follow results of HBA1c. Unable to walk - 2/2 RLE pain, will have wound care to see, pain control, orthopedic consultation requested General diet PPX - lovenox FULL CODE Dispo - inpatient for right leg cellulitis and abscess failing outpatient treatment History of Present Illness History of Present Illness Feeling better compared to admission. The patient has less discomfort over the affected area, no fever or chills reported overnight. Reassurance has been provided no concerns voiced during my encounter Vitals Vitals Vital Signs Date Time Temp Pulse Resp B/P (MAP) Pulse Ox O2 Delivery O2 Flow Rate FiO2 06/21/19 13:19 99 Room Air 3.0 06/21/19 11:00 98.8 69 18 120/74 (89) 98.8 Physical Exam Physical Exam CONSTITUTIONAL: She is pleasant, cooperative. She is in no acute distress. She is sitting upright in bed. HEENT: Pupils are equal and reactive. She had normal conjunctivae. Oral cavity, pharynx was clear. NECK: Supple. Good range of motion. No JVD. LUNGS: Clear. HEART: S1, S2. ABDOMEN: Soft, nontender, no guarding or rebound. EXTREMITIES: Without clubbing, cyanosis. She has 1+ lower extremity edema to her right area, on the lateral aspect she has a small sized area. There is no gross drainage. She has three discrete lesions, one was up in the middle third of her tibia in the anterior medial aspect now less red and looking pustular and the one just above her ankle is somewhat fluctuant. They are well circumscribed approximately a centimeter and half and painful- ankle is better and packed SKIN: Without generalized signs of rash. NEUROLOGIC: She is nonfocal. PSYCHIATRIC: Affect is appropriate. General: Alert, Oriented X3, Cooperative, No acute distress Extremities: No clubbing, No cyanosis, No edema, Normal pulses Skin: No breakdown, Other (Anterior tibial dark dermatitis and confluent cellulitis, warm red, swollen with 3 discrete lesions, painful, raised.) Labs LABS Laboratory Tests Test 06/21/19 07:26 White Blood Count 5.9 x10^3/uL (4.0-11.0) Red Blood Count 2.17 x10^6/uL (3.50-5.40) Hemoglobin 10.2 g/dL (12.0-15.5) Hematocrit 29.8 % (36.0-47.0) Mean Corpuscular Volume 137 fL (79-100) Mean Corpuscular Hemoglobin 47 pg (25-35) Mean Corpuscular Hemoglobin Concent 34 g/dL (31-37) Red Cell Distribution Width 16.3 % (11.5-14.5) Platelet Count 269 x10^3/uL (140-400) Neutrophils (%) (Auto) 51 % (31-73) Lymphocytes (%) (Auto) 36 % (24-48) Monocytes (%) (Auto) 10 % (0-9) Eosinophils (%) (Auto) 3 % (0-3) Basophils (%) (Auto) 1 % (0-3) Neutrophils # (Auto) 3.0 x10^3/uL (1.8-7.7) Lymphocytes # (Auto) 2.1 x10^3/uL (1.0-4.8) Monocytes # (Auto) 0.6 x10^3/uL (0.0-1.1) Eosinophils # (Auto) 0.2 x10^3/uL (0.0-0.7) Basophils # (Auto) 0.0 x10^3/uL (0.0-0.2) Sodium Level 144 mmol/L (136-145) Potassium Level 3.9 mmol/L (3.5-5.1) Chloride Level 110 mmol/L (98-107) Carbon Dioxide Level 26 mmol/L (21-32) Anion Gap 8 (6-14) Blood Urea Nitrogen 11 mg/dL (7-20) Creatinine 0.9 mg/dL (0.6-1.0) Estimated GFR (Cockcroft-Gault) 77.3 Glucose Level 101 mg/dL (70-99) Calcium Level 8.1 mg/dL (8.5-10.1) Assessment and Plan Assessmemt and Plan Problems Medical Problems: (1) Cellulitis and abscess of leg Status: Acute Comment Review of Relevant I have reviewed the following items bijan (where applicable) has been applied. Labs Laboratory Tests Test 06/19/19 15:30 06/20/19 03:55 06/21/19 07:26 White Blood Count 12.1 x10^3/uL (4.0-11.0) 8.4 x10^3/uL (4.0-11.0) 5.9 x10^3/uL (4.0-11.0) Red Blood Count 2.59 x10^6/uL (3.50-5.40) 2.18 x10^6/uL (3.50-5.40) 2.17 x10^6/uL (3.50-5.40) Hemoglobin 12.2 g/dL (12.0-15.5) 10.5 g/dL (12.0-15.5) 10.2 g/dL (12.0-15.5) Hematocrit 35.2 % (36.0-47.0) 29.9 % (36.0-47.0) 29.8 % (36.0-47.0) Mean Corpuscular Volume 136 fL (79-100) 137 fL (79-100) 137 fL (79-100) Mean Corpuscular Hemoglobin 47 pg (25-35) 48 pg (25-35) 47 pg (25-35) Mean Corpuscular Hemoglobin Concent 35 g/dL (31-37) 35 g/dL (31-37) 34 g/dL (31-37) Red Cell Distribution Width 15.9 % (11.5-14.5) 16.4 % (11.5-14.5) 16.3 % (11.5-14.5) Platelet Count 312 x10^3/uL (140-400) 249 x10^3/uL (140-400) 269 x10^3/uL (140-400) Neutrophils (%) (Auto) 88 % (31-73) 59 % (31-73) 51 % (31-73) Lymphocytes (%) (Auto) 8 % (24-48) 34 % (24-48) 36 % (24-48) Monocytes (%) (Auto) 3 % (0-9) 6 % (0-9) 10 % (0-9) Eosinophils (%) (Auto) 0 % (0-3) 1 % (0-3) 3 % (0-3) Basophils (%) (Auto) 1 % (0-3) 0 % (0-3) 1 % (0-3) Neutrophils # (Auto) 10.6 x10^3/uL (1.8-7.7) 4.9 x10^3/uL (1.8-7.7) 3.0 x10^3/uL (1.8-7.7) Lymphocytes # (Auto) 1.0 x10^3/uL (1.0-4.8) 2.9 x10^3/uL (1.0-4.8) 2.1 x10^3/uL (1.0-4.8) Monocytes # (Auto) 0.4 x10^3/uL (0.0-1.1) 0.5 x10^3/uL (0.0-1.1) 0.6 x10^3/uL (0.0-1.1) Eosinophils # (Auto) 0.0 x10^3/uL (0.0-0.7) 0.1 x10^3/uL (0.0-0.7) 0.2 x10^3/uL (0.0-0.7) Basophils # (Auto) 0.1 x10^3/uL (0.0-0.2) 0.0 x10^3/uL (0.0-0.2) 0.0 x10^3/uL (0.0-0.2) Segmented Neutrophils % 77 % (35-66) Band Neutrophils % 8 % (0-9) Lymphocytes % 12 % (24-48) Atypical Lymphocytes % (Manual) 2 % (0-0) Monocytes % 1 % (0-10) Toxic Vacuolation Slight Platelet Estimate Adequate (ADEQUATE) Large Platelets Few Polychromasia Slight Anisocytosis Slight Macrocytosis Marked Spherocytes Occ Tear Drop Cells Occ Stomatocytes Mod Fu-[place] Bodies Present Schistocytes Occ RBC Morphology Bizarre Forms Occ Sodium Level 140 mmol/L (136-145) 142 mmol/L (136-145) 144 mmol/L (136-145) Potassium Level 3.9 mmol/L (3.5-5.1) 3.6 mmol/L (3.5-5.1) 3.9 mmol/L (3.5-5.1) Chloride Level 103 mmol/L (98-107) 107 mmol/L (98-107) 110 mmol/L (98-107) Carbon Dioxide Level 26 mmol/L (21-32) 25 mmol/L (21-32) 26 mmol/L (21-32) Anion Gap 11 (6-14) 10 (6-14) 8 (6-14) Blood Urea Nitrogen 13 mg/dL (7-20) 11 mg/dL (7-20) 11 mg/dL (7-20) Creatinine 1.0 mg/dL (0.6-1.0) 0.8 mg/dL (0.6-1.0) 0.9 mg/dL (0.6-1.0) Estimated GFR (Cockcroft-Gault) 68.4 88.5 77.3 BUN/Creatinine Ratio 13 (6-20) Glucose Level 137 mg/dL (70-99) 77 mg/dL (70-99) 101 mg/dL (70-99) Hemoglobin A1c 5.6 % (4.8-5.6) Lactic Acid Level 1.6 mmol/L (0.4-2.0) Calcium Level 9.2 mg/dL (8.5-10.1) 8.6 mg/dL (8.5-10.1) 8.1 mg/dL (8.5-10.1) Total Bilirubin 0.7 mg/dL (0.2-1.0) Aspartate Amino Transf (AST/SGOT) 19 U/L (15-37) Alanine Aminotransferase (ALT/SGPT) 18 U/L (14-59) Alkaline Phosphatase 67 U/L (46-116) Total Protein 7.8 g/dL (6.4-8.2) Albumin 4.1 g/dL (3.4-5.0) Albumin/Globulin Ratio 1.1 (1.0-1.7) Thyroid Stimulating Hormone (TSH) 2.784 uIU/mL (0.358-3.74) Erythrocyte Sedimentation Rate 45 (0-25) C-Reactive Protein, Quantitative 30.9 mg/L (0-3.3) Vitamin B12 Level > 2000 pg/mL (247-911) Laboratory Tests Test 06/21/19 07:26 White Blood Count 5.9 x10^3/uL (4.0-11.0) Red Blood Count 2.17 x10^6/uL (3.50-5.40) Hemoglobin 10.2 g/dL (12.0-15.5) Hematocrit 29.8 % (36.0-47.0) Mean Corpuscular Volume 137 fL (79-100) Mean Corpuscular Hemoglobin 47 pg (25-35) Mean Corpuscular Hemoglobin Concent 34 g/dL (31-37) Red Cell Distribution Width 16.3 % (11.5-14.5) Platelet Count 269 x10^3/uL (140-400) Neutrophils (%) (Auto) 51 % (31-73) Lymphocytes (%) (Auto) 36 % (24-48) Monocytes (%) (Auto) 10 % (0-9) Eosinophils (%) (Auto) 3 % (0-3) Basophils (%) (Auto) 1 % (0-3) Neutrophils # (Auto) 3.0 x10^3/uL (1.8-7.7) Lymphocytes # (Auto) 2.1 x10^3/uL (1.0-4.8) Monocytes # (Auto) 0.6 x10^3/uL (0.0-1.1) Eosinophils # (Auto) 0.2 x10^3/uL (0.0-0.7) Basophils # (Auto) 0.0 x10^3/uL (0.0-0.2) Sodium Level 144 mmol/L (136-145) Potassium Level 3.9 mmol/L (3.5-5.1) Chloride Level 110 mmol/L (98-107) Carbon Dioxide Level 26 mmol/L (21-32) Anion Gap 8 (6-14) Blood Urea Nitrogen 11 mg/dL (7-20) Creatinine 0.9 mg/dL (0.6-1.0) Estimated GFR (Cockcroft-Gault) 77.3 Glucose Level 101 mg/dL (70-99) Calcium Level 8.1 mg/dL (8.5-10.1) Microbiology 06/19/19 Blood Culture - Preliminary, Resulted NO GROWTH AFTER 1 DAY Medications Current Medications Sodium Chloride 1,000 ml @ 1,000 mls/hr 1X STAT IV Last administered on 06/19/19at 16:12; Start 06/19/19 at 15:48; Stop 06/19/19 at 16:47; Status DC Clindamycin Phosphate 50 ml @ 100 mls/hr 1X STAT IV Last administered on 06/19/19at 16:12; Start 06/19/19 at 15:48; Stop 06/19/19 at 16:17; Status DC Lidocaine HCl 20 ml 1X STAT IJ Last administered on 06/19/19at 16:28; Start 06/19/19 at 16:24; Stop 06/19/19 at 16:25; Status DC Ondansetron HCl (Zofran) 4 mg PRN Q8HRS PRN IV NAUSEA/VOMITING; Start 06/19/19 at 17:00; Stop 06/20/19 at 02:14; Status DC Fentanyl Citrate (Fentanyl 2ml Vial) 50 mcg 1X STAT IV Last administered on 06/19/19at 17:41; Start 06/19/19 at 17:13; Stop 06/19/19 at 17:15; Status DC Tramadol HCl (Ultram) 50 mg PRN Q6HRS PRN PO MILD PAIN 1-3; Start 06/19/19 at 17:45; Stop 06/20/19 at 02:13; Status DC Acetaminophen/ Hydrocodone Bitart (Lortab 5/325) 1 tab PRN Q4HRS PRN PO MODERATE PAIN Last administered on 06/21/19at 13:19; Start 06/19/19 at 17:45 Morphine Sulfate (Morphine Sulfate) 2 mg PRN Q2HR PRN IV PAIN; Start 06/19/19 at 17:45 Vitamin D (Vitamin D3) 2,000 unit DAILY PO Last administered on 06/21/19at 09:54; Start 06/20/19 at 09:00 Levothyroxine Sodium (Synthroid) 88 mcg DAILY06 PO Last administered on 06/21/19at 06:19; Start 06/20/19 at 06:00 Pantoprazole Sodium (Protonix) 40 mg DAILYAC PO Last administered on 06/21/19at 09:54; Start 06/20/19 at 07:30 Tramadol HCl (Ultram) 50 mg PRN Q6HRS PRN PO MILD PAIN 1-3; Start 06/19/19 at 20:30 Ondansetron HCl (Zofran) 4 mg PRN Q4HRS PRN IV NAUSEA/VOMITING 1ST CHOICE; Start 06/19/19 at 20:30 Zolpidem Tartrate (Ambien) 5 mg PRN QHS PRN PO INSOMNIA; Start 06/19/19 at 20:30 Acetaminophen (Tylenol) 650 mg PRN Q4HRS PRN PO TEMP OVER 100.4F OR HEADACHE; Start 06/19/19 at 20:30 Docusate Sodium (Colace) 100 mg PRN BID PRN PO CONSTIPATION 1ST CHOICE; Start 06/19/19 at 20:30 Piperacillin Sod/ Tazobactam Sod 3.375 gm/Sodium Chloride 50 ml @ 100 mls/hr Q6HRS IV Last administered on 06/21/19at 13:16; Start 06/20/19 at 00:00 Vancomycin HCl 2 gm/Sodium Chloride 500 ml @ 250 mls/hr 1X ONCE IV Last administered on 06/19/19at 21:14; Start 06/19/19 at 21:00; Stop 06/19/19 at 22:59; Status DC Vancomycin HCl (Vanco Per Pharmacy) 1 each PRN DAILY PRN MC SEE COMMENTS Last administered on 06/21/19at 12:06; Start 06/19/19 at 20:30 Enoxaparin Sodium (Lovenox 40mg Syringe) 40 mg Q24H SQ ; Start 06/19/19 at 21:00; Stop 06/19/19 at 20:40; Status DC Enoxaparin Sodium (Lovenox 40mg Syringe) 40 mg BID SQ Last administered on 06/21/19at 09:56; Start 06/19/19 at 21:00 Cyanocobalamin (Vitamin B-12) 1,000 mcg DAILY PO Last administered on 06/21/19at 09:54; Start 06/20/19 at 09:00 Vancomycin HCl 1.75 gm/Sodium Chloride 500 ml @ 250 mls/hr Q12H IV Last administered on 06/20/19at 21:03; Start 06/20/19 at 09:00; Stop 06/21/19 at 07:09; Status DC Vancomycin HCl (Vancomycin Trough Level) 1 each 1X ONCE MC ; Start 06/21/19 at 08:30; Stop 06/21/19 at 08:31; Status Cancel Lactobacillus Rhamnosus (Culturelle) 1 cap BID PO Last administered on 06/21/19at 09:54; Start 06/20/19 at 09:00 Gadoterate Meglumine (Dotarem) 10 ml 1X ONCE IVP Last administered on 06/20at 12:31; Start 06/20/19 at 12:45; Stop 06/20/19 at 12:46; Status DC Gadoterate Meglumine (Dotarem) 15 ml 1X ONCE IVP Last administered on 06/20/19at 12:30; Start 06/20/19 at 12:15; Stop 06/20/19 at 12:19; Status DC Vancomycin HCl 1.75 gm/Sodium Chloride 500 ml @ 250 mls/hr Q12H IV ; Start 06/21/19 at 20:00 Vancomycin HCl (Vancomycin Trough Level) 1 each 1X ONCE MC ; Start 06/22/19 at 19:30; Stop 06/22/19 at 19:31 Ondansetron HCl (Zofran) 4 mg PRN Q6HRS PRN IV NAUSEA/VOMITING; Start 06/22/19 at 07:00; Stop 06/22/19 at 19:00 Fentanyl Citrate (Fentanyl 2ml Vial) 25 mcg PRN Q5MIN PRN IV MILD PAIN 1-3; Start 06/22/19 at 07:00; Stop 06/22/19 at 19:00 Fentanyl Citrate (Fentanyl 2ml Vial) 50 mcg PRN Q5MIN PRN IV MODERATE TO SEVERE PAIN; Start 06/22/19 at 07:00; Stop 06/22/19 at 19:00 Morphine Sulfate (Morphine Sulfate) 1 mg PRN Q10MIN PRN IV SEVERE PAIN 7-10; Start 06/22/19 at 07:00; Stop 06/22/19 at 19:00 Ringer's Solution 1,000 ml @ 30 mls/hr Q24H IV ; Start 06/22/19 at 07:00; Stop 06/22/19 at 18:59 Hydromorphone HCl (Dilaudid) 0.5 mg PRN Q10MIN PRN IV SEV PAIN, Second choice; Start 06/22/19 at 07:00; Stop 06/22/19 at 19:00 Prochlorperazine Edisylate (Compazine) 5 mg PACU PRN PRN IV NAUSEA, MRX1; Start 06/22/19 at 07:00; Stop 06/22/19 at 19:00 Active Scripts Active Reported Tramadol Hcl 50 Mg Tablet 1 Tab PO PRN Q6HRS Pantoprazole Sodium (Pantoprazole Sodium) 40 Mg Tablet.dr 1 Tab PO DAILY Vitamin D3 (Cholecalciferol (Vitamin D3)) 1,000 Unit Tablet 2,000 Unit PO DAILY Alendronate Sodium 35 Mg Tablet 1 Tab PO WEEKLY Synthroid (Levothyroxine Sodium) 88 Mcg Tablet 88 Mcg PO DAILYAC Vitals/I & O Vital Sign - Last 24 Hours 06/20/19 06/20/19 06/20/19 06/20/19 19:40 19:50 22:55 23:01 Temp 98.2 97.8 98.2 97.8 Pulse 86 80 Resp 20 18 20 B/P (MAP) 121/79 (93) 103/76 (85) Pulse Ox 99 94 O2 Delivery Room Air Room Air Room Air Room Air 06/21/19 06/21/19 06/21/19 06/21/19 00:01 03:15 05:05 06:05 Temp 98.1 98.1 Pulse 74 Resp 18 20 20 B/P (MAP) 107/56 (73) Pulse Ox 98 O2 Delivery Room Air Room Air Room Air Room Air 06/21/19 06/21/19 06/21/19 07:00 11:00 13:19 Temp 98.1 98.8 98.1 98.8 Pulse 95 69 Resp 18 18 B/P (MAP) 150/93 (112) 120/74 (89) Pulse Ox 99 99 99 O2 Delivery Nasal Cannula Room Air Room Air O2 Flow Rate 3.0 Intake and Output 06/20/19 06/20/19 06/21/19 15:00 23:00 07:00 Intake Total 400 ml Balance 400 ml FARELA,JUSTIN MD Jun 21, 2019 15:26
[2019-06-21 19:00] VITALS: BP 130/72
[2019-06-21] MEDS: VANCOMYCIN 1.75 GM in IV NORMAL SALINE 500ML BAG 500 ML IV SCH (21:25)
--- NOTE | 2019-06-21 21:30 | NUR ---
Lovenox non-administered d/t scheduled surgery on 06/22.
[2019-06-21 23:49] VITALS: BP 103/50
[2019-06-22] VITALS (14 sets, daily range): BP systolic 120–150; BP diastolic 60–80
[2019-06-22] MEDS: PIPERACILLIN/TAZOBACTAM 3.375 GM in IV NORMAL SALINE 50ML 50 ML IV SCH ×4 (00:20→18:18)
[2019-06-22] MEDS: LEVOTHYROXINE 88 MCG TABLET PO SCH (05:32)
[2019-06-22] MEDS: PANTOPRAZOLE 40 MG TABLET.DR. PO SCH (05:35)
[2019-06-22] MEDS ORDERED: fentaNYL PF VIAL 100 MCG/2 ML VIAL IV PRN ×2 (07:00)
[2019-06-22] MEDS ORDERED: PROCHLORPERAZINE 10 MG/2 ML VIAL. IV PRN (07:00)
[2019-06-22] MEDS ORDERED: ONDANSETRON PF 4 MG/2 ML VIAL. IV PRN (07:00)
[2019-06-22] MEDS ORDERED: IV RINGERS,LACTATED 1000ML 1,000 ML IV SCH (07:00)
[2019-06-22] MEDS: VANCOMYCIN 1.75 GM in IV NORMAL SALINE 500ML BAG 500 ML IV SCH ×2 (07:54→21:28)
[2019-06-22] MEDS: LACTOBACILLUS RHAMNOSUS GG 1 CAPSULE. PO SCH ×2 (07:55→21:28)
[2019-06-22] MEDS: CYANOCOBALAMIN (VITAMIN B-12) 1,000 MCG TABLET. PO SCH (07:55)
[2019-06-22] MEDS: CHOLECALCIFEROL (VITAMIN D3) 1,000 UNIT TABLET PO SCH (07:55)
[2019-06-22] MEDS: ENOXAPARIN 40 MG/0.4 ML SYRINGE. SQ SCH ×2 (07:56→21:00)
--- NOTE | 2019-06-22 08:31 | PDOC ---
Infectious Disease Note Subjective Subjective 2 spots still painful but ankle feels better Surgery today No F/C/S/N/V/D/rash. + Flatus ROS ROS o/w neg Vital Sign Vital Signs Vital Signs Date Time Temp Pulse Resp B/P (MAP) Pulse Ox O2 Delivery O2 Flow Rate FiO2 06/22/19 03:30 98.4 73 18 120/71 (87) 96 Room Air 98.4 06/21/19 16:20 3.0 Physical Exam PHYSICAL EXAM CONSTITUTIONAL: She is pleasant, cooperative. She is in no acute distress. She is sitting upright in bed. HEENT: Pupils are equal and reactive. She had normal conjunctivae. Oral cavity, pharynx was clear. NECK: Supple. Good range of motion. No JVD. LUNGS: Clear. HEART: S1, S2. ABDOMEN: Soft, nontender, no guarding or rebound. EXTREMITIES: Without clubbing, cyanosis. She has trace + lower extremity edema to her right area, on the lateral aspect she has a small sized area. There is no gross drainage. She has three discrete lesions, one was up in the middle third of her tibia in the anterior medial aspect now less red and looking pustular and the one just above her ankle is somewhat fluctuant. They are well circumscribed approximately a centimeter and half and painful- ankle is better and packed SKIN: Without generalized signs of rash. NEUROLOGIC: She is nonfocal. PSYCHIATRIC: Affect is appropriate. Labs Micro MRI- 06/20 IMPRESSION: 1. Cellulitis along the medial aspect of the lower leg, ankle and extending along the medial foot with a superimposed small developing abscess measuring 1.2 x 0.5 x 1.8 cm. Likely a tiny amount of gas within this collection. Note is made that this collection does not exhibit confluent fluid signal internally and may be difficult to drain at this time. No fluid collection seen elsewhere. No findings of osteomyelitis. 2. Findings in keeping with mild plantar fasciitis. 3. Mild distal Achilles tendinosis. 4. Lobulated ganglion cyst emanating from the posterior aspect of ankle from the lateral gutter measuring up to 2 cm in maximum dimension. Microbiology 06/19/19 Blood Culture - Preliminary, Resulted NO GROWTH AFTER 1 DAY Objective Assessment RLE cellulitis RLE abscess s/p I and D in ER 06/19 MRI reviewed - small fluid collection - no Osteo -cults neg so far Leukocytosis - better Leg nodules - ? Erythema Nodsum - abscess Plan Plan of Care Agree with Vanc/Zosyn for now F/u labs in am and cults Appreciate Dr. Amy mtaos and await surgery CHELITA JHAVERI MD Jun 22, 2019 08:31
--- NOTE | 2019-06-22 08:35 | NUR ---
SW following. Discussed with RN, pt having an I&D today. SW will continue to follow.
[2019-06-22] MEDS: HYDROcodone/APAP 5/325MG 1 TAB TABLET PO PRN ×2 (09:52→21:29)
[2019-06-22] MEDS ORDERED: BUPIVACAINE-EPI 0.25%-1:200000 MPF 30 ML VIAL. ONE (11:32)
[2019-06-22] MEDS ORDERED: FAMOTIDINE 20 MG/2 ML VIAL ONE (11:49)
[2019-06-22] MEDS ORDERED: LIDOCAINE 2% PF 5 ML VIAL. ONE (11:49)
[2019-06-22] MEDS ORDERED: DEXAMETHASONE SOD PHOS 4 MG/ML VIAL ONE (11:49)
[2019-06-22] MEDS ORDERED: PROPOFOL 20 ML IV ONE (11:49)
[2019-06-22] MEDS ORDERED: fentaNYL PF VIAL 100 MCG/2 ML VIAL ONE ×2 (11:49→13:11)
[2019-06-22] MEDS ORDERED: ONDANSETRON PF 4 MG/2 ML VIAL. ONE (11:49)
[2019-06-22] MEDS ORDERED: MIDAZOLAM HCL/PF 2 MG/2 ML VIAL. ONE (11:50)
[2019-06-22] MEDS ORDERED: KETAMINE HCL IN NACL, ISO-OSM 50 MG/5 ML SYRINGE ONE (11:51)
--- NOTE | 2019-06-22 13:14 | PDOC4 ---
Operative Note Operative Note Date of Procedure: June 22, 2019 Pre-Op Diagnosis: Furuncle of right lower limb (multiple, there are three separate furuncles) L02.425 Post-Op Diagnosis: Same Procedure: Incision and drainage, right leg deep abscesses CPT 32445 (x3 locations) Surgeon: Maikol Reyes MD Anesthesia: General EBL: 10 mL Specimens Obtained: Swab cultures for aerobic and anaerobic of the proximal abscess, specimen cup for aerobic and anaerobic of the middle abscess. Complications: none Drains: Iodoform packing Findings: Three pururent abscesses right lower leg Indications for Procedure: The patient is a 58-year-old woman who presented with multiple abscesses in the right lower leg. She had drainage of one of them in the emergency room, but still has pain and drainage at that location, and it was very painful for her. She has 2 other abscesses which have not yet been drained. I recommended surgical incision and drainage and possible packing open. The patient and I discussed the risks, benefits and alternatives of surgery. Procedure in Detail: The patient was identified in the preoperative holding area. The correct right leg was marked by me. The patient was taken to the operating room where general anesthesia was used. The patient was positioned supine on the operating table. She remains on scheduled antibiotics. A timeout procedure was performed. No tourniquet was used. The limb was prepared in sterile fashion with surgical prep solution. Sterile drapes were applied. A sterile glove was used over the toes and heel. An incision was made over each of the three palpable abscess starting with the most proximal abscess. A 15 blade scalpel was used to make a 3 centimeter incision in the skin and subcutaneous tissues at the proximal abscess. Digital dissection was used to break up any loculations, and I excised some of the deep abscess cavity including subcutaneous tissue and deep fascia, using sharp excisional debridement with a rongeurs. Swab cultures were taken of the most proximal abscess, and purulent fluid was noted, consistent with a large furuncle. The most proximal abscess is fairly deep, almost down to the level of the tibia bone. The [employer] interpulse tape transferrer was used and copious saline irrigation was used. The middle abscess was larger in diameter, and had a larger amount of purulent fluid. A 10 blade scalpel was used to make a 4 cm incision. This was sent in a specimen cup for cultures. This may have been a carbuncle. Again digital dissection was used but no bone was palpated at the depth of the middle abscess. Rongeurs was used to remove nonviable skin, subcutaneous tissue and abscess cavity. The Helen interpulse tape transferrer was used and copious saline irrigation was used. The distal abscess incision was extended with a 15 blade scalpel so that I could do digital dissection of the loculations. No further cultures were taken of the distal abscess. Rongeurs were used to remove nonviable tissue of the depth of the abscess cavity and additional skin and subcutaneous tissue. The Helen interpulse tape transferrer was used and copious saline irrigation was used. The skin was prepared again with Betadine, and Betadine was used within the abscess cavities and then irrigated using saline with the Helen interpulse tape transferrer. Final saline irrigation was performed. The skin edges of each abscess were loosely reapproximated with 2-0 nylon simple and horizontal mattress suture. The abscess cavities were each was packed with inch iodoform packing. The most proximal and distal abscesses have 6 inches of iodoform packing. The middle abscess has 12 inches of iodoform packing. Sterile dressings were applied. The patient tolerated the procedure well. There were no apparent complications. Needle and sponge counts were correct. I recommend removing a small amount of packing per day, and continue antibiotics. Remove 1 inch per day from the proximal and distal abscesses, and 2 inches per day from the middle abscess. MAIKOL REYES MD Jun 22, 2019 13:14
[2019-06-22] MEDS: MORPHINE SULFATE 2 MG/ML VIAL. IV PRN ×2 (13:28→13:43)
[2019-06-22] MEDS: VANCOMYCIN PER PHARMACY MC PRN ×3 (13:44→20:08)
[2019-06-22] MEDS: HYDROmorphone 2 MG/ML VIAL IV PRN ×2 (13:49→14:04)
--- NOTE | 2019-06-22 14:01 | PDOC ---
PROGRESS NOTES Chief Complaint Chief Complaint Impression and Plan: Right leg abscess - near right medial malleolus, s/p I&D and culture with blood cultures. Empiric clindamycin given, will treat with vancomycin and zosyn. Consult ID. Recommendations greatly appreciated Right leg cellulitis - spares the foot. Will raise extremity, wound care for compressive wrap if she can tolerate it. Red raised lesions - this appears like erythema nodosum in 2 locations. Will see how she responds to antibiotics (no history of GI issues or pulmonary issues, no sarcoid) Leukocytosis - with tachycardia and cellulitis with abscess this is sepsis, POA, given antibiotics and fluids. Will monitor Macrocytosis - B12 levels greater than 2000 Hypothyroidism - will cont meds Vitamin D insufficiency - will cont meds Elevated fasting glucose - follow results of HBA1c. Unable to walk - 2/2 RLE pain, will have wound care to see, pain control, orthopedic consultation requested she will be going to the OR today General diet PPX - lovenox FULL CODE Dispo - inpatient for right leg cellulitis and abscess failing outpatient treatment Hopefully discharge soon follow up on cultures History of Present Illness History of Present Illness Feeling better compared to admission. The patient has less discomfort over the affected area, no fever or chills reported overnight. Reassurance has been provided no concerns voiced during my encounter Vitals Vitals Vital Signs Date Time Temp Pulse Resp B/P (MAP) Pulse Ox O2 Delivery O2 Flow Rate FiO2 06/22/19 13:49 15 96 Room Air 06/22/19 13:45 98.5 72 166/81 98.5 06/22/19 13:15 3.0 Physical Exam Physical Exam CONSTITUTIONAL: She is pleasant, cooperative. She is in no acute distress. She is sitting upright in bed. HEENT: Pupils are equal and reactive. She had normal conjunctivae. Oral cavity, pharynx was clear. NECK: Supple. Good range of motion. No JVD. LUNGS: Clear. HEART: S1, S2. ABDOMEN: Soft, nontender, no guarding or rebound. EXTREMITIES: Without clubbing, cyanosis. She has trace + lower extremity edema to her right area, on the lateral aspect she has a small sized area. There is no gross drainage. She has three discrete lesions, one was up in the middle third of her tibia in the anterior medial aspect now less red and looking pustular and the one just above her ankle is somewhat fluctuant. They are well circumscribed approximately a centimeter and half and painful- ankle is better and packed SKIN: Without generalized signs of rash. NEUROLOGIC: She is nonfocal. PSYCHIATRIC: Affect is appropriate. General: Alert, Cooperative Heart: Regular rate Abdomen: Soft Extremities: Other (she has a dressing over the right ankle medially, with small abscess superficially and some packing. She has 2 more discrete abscesses, one in the bathroom mid tibia and one more proximally, both of which seem superficial, quite tender, erythematous, and slightly fluctuant. She has a good dorsalis pedis pulse and normal sensation in the foot. Normal neurovascular function distally. No evidence of compartment syndrome. There is mild cellulitis of the leg, mostly around the areas of the abscesses. I examined the posterior ankle, where she has a ganglion on the imaging, and this is asymptomatic and not palpable.) Skin: Other (abscess lesions as above.) Review of Systems Review of Systems Pertinent as per history of present illness otherwise 14 point review of system is negative Assessment and Plan Assessmemt and Plan Problems Medical Problems: (1) Cellulitis and abscess of leg Status: Acute Comment Review of Relevant I have reviewed the following items bijan (where applicable) has been applied. Labs Laboratory Tests Test 06/21/19 07:26 White Blood Count 5.9 x10^3/uL (4.0-11.0) Red Blood Count 2.17 x10^6/uL (3.50-5.40) Hemoglobin 10.2 g/dL (12.0-15.5) Hematocrit 29.8 % (36.0-47.0) Mean Corpuscular Volume 137 fL (79-100) Mean Corpuscular Hemoglobin 47 pg (25-35) Mean Corpuscular Hemoglobin Concent 34 g/dL (31-37) Red Cell Distribution Width 16.3 % (11.5-14.5) Platelet Count 269 x10^3/uL (140-400) Neutrophils (%) (Auto) 51 % (31-73) Lymphocytes (%) (Auto) 36 % (24-48) Monocytes (%) (Auto) 10 % (0-9) Eosinophils (%) (Auto) 3 % (0-3) Basophils (%) (Auto) 1 % (0-3) Neutrophils # (Auto) 3.0 x10^3/uL (1.8-7.7) Lymphocytes # (Auto) 2.1 x10^3/uL (1.0-4.8) Monocytes # (Auto) 0.6 x10^3/uL (0.0-1.1) Eosinophils # (Auto) 0.2 x10^3/uL (0.0-0.7) Basophils # (Auto) 0.0 x10^3/uL (0.0-0.2) Sodium Level 144 mmol/L (136-145) Potassium Level 3.9 mmol/L (3.5-5.1) Chloride Level 110 mmol/L (98-107) Carbon Dioxide Level 26 mmol/L (21-32) Anion Gap 8 (6-14) Blood Urea Nitrogen 11 mg/dL (7-20) Creatinine 0.9 mg/dL (0.6-1.0) Estimated GFR (Cockcroft-Gault) 77.3 Glucose Level 101 mg/dL (70-99) Calcium Level 8.1 mg/dL (8.5-10.1) Microbiology 06/19/19 Blood Culture - Preliminary, Resulted NO GROWTH AFTER 2 DAYS 06/19/19 Anaerobic/Aerobic Culture, Resulted Pending 06/19/19 Anaerobic Culture Result 1 (CLAUDIA), Resulted Pending 06/19/19 Aerobic Culture, Resulted Pending 06/19/19 Aerobic Culture Result 1 (CLAUDIA), Resulted Pending 06/19/19 Gram Stain - Final, Resulted 06/19/19 Gram Stain Result 1 (CLAUDIA) - Final, Resulted 06/19/19 Gram Stain Result 2 (CLAUDIA) - Final, Resulted Medications Current Medications Sodium Chloride 1,000 ml @ 1,000 mls/hr 1X STAT IV Last administered on 06/19/19at 16:12; Start 06/19/19 at 15:48; Stop 06/19/19 at 16:47; Status DC Clindamycin Phosphate 50 ml @ 100 mls/hr 1X STAT IV Last administered on 06/19/19at 16:12; Start 06/19/19 at 15:48; Stop 06/19/19 at 16:17; Status DC Lidocaine HCl 20 ml 1X STAT IJ Last administered on 06/19/19at 16:28; Start 06/19/19 at 16:24; Stop 06/19/19 at 16:25; Status DC Ondansetron HCl (Zofran) 4 mg PRN Q8HRS PRN IV NAUSEA/VOMITING; Start 06/19/19 at 17:00; Stop 06/20/19 at 02:14; Status DC Fentanyl Citrate (Fentanyl 2ml Vial) 50 mcg 1X STAT IV Last administered on 06/19/19at 17:41; Start 06/19/19 at 17:13; Stop 06/19/19 at 17:15; Status DC Tramadol HCl (Ultram) 50 mg PRN Q6HRS PRN PO MILD PAIN 1-3; Start 06/19/19 at 17:45; Stop 06/20/19 at 02:13; Status DC Acetaminophen/ Hydrocodone Bitart (Lortab 5/325) 1 tab PRN Q4HRS PRN PO MODERATE PAIN Last administered on 06/22/19at 09:52; Start 06/19/19 at 17:45 Morphine Sulfate (Morphine Sulfate) 2 mg PRN Q2HR PRN IV PAIN; Start 06/19/19 at 17:45 Vitamin D (Vitamin D3) 2,000 unit DAILY PO Last administered on 06/21/19at 09:54; Start 06/20/19 at 09:00 Levothyroxine Sodium (Synthroid) 88 mcg DAILY06 PO Last administered on 06/21/19at 06:19; Start 06/20/19 at 06:00 Pantoprazole Sodium (Protonix) 40 mg DAILYAC PO Last administered on 06/21/19at 09:54; Start 06/20/19 at 07:30 Tramadol HCl (Ultram) 50 mg PRN Q6HRS PRN PO MILD PAIN 1-3; Start 06/19/19 at 20:30 Ondansetron HCl (Zofran) 4 mg PRN Q4HRS PRN IV NAUSEA/VOMITING 1ST CHOICE; Start 06/19/19 at 20:30 Zolpidem Tartrate (Ambien) 5 mg PRN QHS PRN PO INSOMNIA; Start 06/19/19 at 20:30 Acetaminophen (Tylenol) 650 mg PRN Q4HRS PRN PO TEMP OVER 100.4F OR HEADACHE; Start 06/19/19 at 20:30 Docusate Sodium (Colace) 100 mg PRN BID PRN PO CONSTIPATION 1ST CHOICE; Start 06/19/19 at 20:30 Piperacillin Sod/ Tazobactam Sod 3.375 gm/Sodium Chloride 50 ml @ 100 mls/hr Q6HRS IV Last administered on 06/22/19at 05:32; Start 06/20/19 at 00:00 Vancomycin HCl 2 gm/Sodium Chloride 500 ml @ 250 mls/hr 1X ONCE IV Last administered on 06/19/19at 21:14; Start 06/19/19 at 21:00; Stop 06/19/19 at 22:59; Status DC Vancomycin HCl (Vanco Per Pharmacy) 1 each PRN DAILY PRN MC SEE COMMENTS Last administered on 06/22/19at 13:46; Start 06/19/19 at 20:30 Enoxaparin Sodium (Lovenox 40mg Syringe) 40 mg Q24H SQ ; Start 06/19/19 at 21:00; Stop 06/19/19 at 20:40; Status DC Enoxaparin Sodium (Lovenox 40mg Syringe) 40 mg BID SQ Last administered on 06/21/19at 09:56; Start 06/19/19 at 21:00 Cyanocobalamin (Vitamin B-12) 1,000 mcg DAILY PO Last administered on 06/21/19at 09:54; Start 06/20/19 at 09:00 Vancomycin HCl 1.75 gm/Sodium Chloride 500 ml @ 250 mls/hr Q12H IV Last admin istered on 06/20/19at 21:03; Start 06/20/19 at 09:00; Stop 06/21/19 at 07:09; Status DC Vancomycin HCl (Vancomycin Trough Level) 1 each 1X ONCE MC ; Start 06/21/19 at 08:30; Stop 06/21/19 at 08:31; Status Cancel Lactobacillus Rhamnosus (Culturelle) 1 cap BID PO Last administered on 06/21/19at 21:24; Start 06/20/19 at 09:00 Gadoterate Meglumine (Dotarem) 10 ml 1X ONCE IVP Last administered on 06/20/19at 12:31; Start 06/20/19 at 12:45; Stop 06/20/19 at 12:46; Status DC Gadoterate Meglumine (Dotarem) 15 ml 1X ONCE IVP Last administered on 06/20/19at 12:30; Start 06/20/19 at 12:15; Stop 06/20/19 at 12:19; Status DC Vancomycin HCl 1.75 gm/Sodium Chloride 500 ml @ 250 mls/hr Q12H IV Last administered on 06/22/19at 07:54; Start 06/21/19 at 20:00 Vancomycin HCl (Vancomycin Trough Level) 1 each 1X ONCE MC ; Start 06/22/19 at 19:30; Stop 06/22/19 at 19:31 Ondansetron HCl (Zofran) 4 mg PRN Q6HRS PRN IV NAUSEA/VOMITING; Start 06/22/19 at 07:00; Stop 06/22/19 at 19:00 Fentanyl Citrate (Fentanyl 2ml Vial) 25 mcg PRN Q5MIN PRN IV MILD PAIN 1-3; Start 06/22/19 at 07:00; Stop 06/22/19 at 19:00 Fentanyl Citrate (Fentanyl 2ml Vial) 50 mcg PRN Q5MIN PRN IV MODERATE TO SEVERE PAIN; Start 06/22/19 at 07:00; Stop 06/22/19 at 19:00 Morphine Sulfate (Morphine Sulfate) 1 mg PRN Q10MIN PRN IV SEVERE PAIN 7-10 Last administered on 06/22/19at 13:43; Start 06/22/19 at 07:00; Stop 06/22/19 at 19:00 Ringer's Solution 1,000 ml @ 30 mls/hr Q24H IV Last administered on 06/22/19at 07:54; Start 06/22/19 at 07:00; Stop 06/22/19 at 18:59 Hydromorphone HCl (Dilaudid) 0.5 mg PRN Q10MIN PRN IV SEV PAIN, Second choice Last administered on 06/22/19at 13:49; Start 06/22/19 at 07:00; Stop 06/22/19 at 19:00 Prochlorperazine Edisylate (Compazine) 5 mg PACU PRN PRN IV NAUSEA, MRX1 Last administered on 06/22/19at 13:44; Start 06/22/19 at 07:00; Stop 06/22/19 at 19:00 Bupivacaine HCl/ Epinephrine Bitart (Sensorcaine-Epi 0.25%-1:099842 Mpf) 30 ml STK-MED ONCE .ROUTE ; Start 06/22/19 at 11:32; Stop 06/22/19 at 11:33; Status DC Propofol 20 ml @ As Directed STK-MED ONCE IV ; Start 06/22/19 at 11:49; Stop 06/22/19 at 11:49; Status DC Famotidine (Pepcid Vial) 20 mg STK-MED ONCE .ROUTE ; Start 06/22/19 at 11:49; Stop 06/22/19 at 11:49; Status DC Lidocaine HCl (Lidocaine Pf 2% Vial) 5 ml STK-MED ONCE .ROUTE ; Start 06/22/19 at 11:49; Stop 06/22/19 at 11:49; Status DC Ondansetron HCl (Zofran) 4 mg STK-MED ONCE .ROUTE ; Start 06/22/19 at 11:49; Stop 06/22/19 at 11:49; Status DC Dexamethasone Sodium Phosphate (Decadron) 4 mg STK-MED ONCE .ROUTE ; Start 06/22/19 at 11:49; Stop 06/22/19 at 11:49; Status DC Fentanyl Citrate (Fentanyl 2ml Vial) 100 mcg STK-MED ONCE .ROUTE ; Start 0 at 11:49; Stop 06/22/19 at 11:49; Status DC Midazolam HCl (Versed) 2 mg STK-MED ONCE .ROUTE ; Start 06/22/19 at 11:50; Stop 06/22/19 at 11:50; Status DC Ketamine HCl (Ketamine) 50 mg STK-MED ONCE .ROUTE ; Start 06/22/19 at 11:51; Stop 06/22/19 at 11:51; Status DC Fentanyl Citrate (Fentanyl 2ml Vial) 100 mcg STK-MED ONCE .ROUTE ; Start 06/22/19 at 13:11; Stop 06/22/19 at 13:11; Status DC Active Scripts Active Reported Tramadol Hcl 50 Mg Tablet 1 Tab PO PRN Q6HRS Pantoprazole Sodium (Pantoprazole Sodium) 40 Mg Tablet.dr 1 Tab PO DAILY Vitamin D3 (Cholecalciferol (Vitamin D3)) 1,000 Unit Tablet 2,000 Unit PO DAILY Alendronate Sodium 35 Mg Tablet 1 Tab PO WEEKLY Synthroid (Levothyroxine Sodium) 88 Mcg Tablet 88 Mcg PO DAILYAC Vitals/I & O Vital Sign - Last 24 Hours 1/22/20 06/21/19 06/21/19 06/21/19 15:00 16:20 19:00 19:30 Temp 97.9 98.9 97.9 98.9 Pulse 85 67 Resp 18 16 B/P (MAP) 117/52 (73) 130/72 (91) Pulse Ox 98 98 98 O2 Delivery Room Air Room Air Room Air Room Air O2 Flow Rate 3.0 06/21/19 06/21/19 06/21/19 06/22/19 21:24 22:25 23:49 03:30 Temp 98.3 98.4 98.3 98.4 Pulse 67 73 Resp 16 18 18 18 B/P (MAP) 103/50 (67) 120/71 (87) Pulse Ox 96 96 O2 Delivery Room Air Room Air Room Air Room Air 06/22/19 06/22/19 06/22/19 06/22/19 07:00 08:00 09:52 11:00 Temp 98.1 98.2 98.1 98.2 Pulse 70 91 Resp 16 18 B/P (MAP) 131/69 (89) 141/68 (92) Pulse Ox 99 99 98 O2 Delivery Room Air Room Air Room Air Room Air O2 Flow Rate 3.0 06/22/19 06/22/19 06/22/19 06/22/19 11:36 13:15 13:15 13:28 Temp 97.4 98.5 97.4 98.5 Pulse 70 77 Resp 15 15 15 B/P (MAP) 160/106 152/85 Pulse Ox 94 94 94 O2 Delivery Room Air Room Air Room Air Room Air O2 Flow Rate 3.0 06/22/19 06/22/19 06/22/19 06/22/19 13:30 13:43 13:45 13:49 Temp 98.5 98.5 98.5 98.5 Pulse 73 72 Resp 15 15 15 15 B/P (MAP) 160/75 166/81 Pulse Ox 94 94 96 96 O2 Delivery Room Air Room Air Room Air Room Air Intake and Output 06/21/19 06/21/19 06/22/19 15:00 23:00 07:00 Intake Total 500 ml 360 ml 850 ml Balance 500 ml 360 ml 850 ml LANCE NORTH MD Jun 22, 2019 14:01
[2019-06-22] MEDS ORDERED: HYDROmorphone 2 MG/ML VIAL ONE (14:09)
[2019-06-22 20:04] LABS: VANC TR 15.1 mcg/mL (10.0-20.0)
--- NOTE | 2019-06-22 20:08 | NUR ---
Pharmacy Vancomycin Dosing Note S: Consulted to monitor and dose vancomycin started 06/19/19. O: INDIRA CORLEY is a 58 year old F with abscess/cellulitis Other Antibiotics: ZOSYN 3.375 GM Q6H LABS: Last BUN: 11 Last Creatinine: 0.9 Creatinine Clearance: 80 mL/min Last WBC: 5.9 Last Procalcitonin: Tmax (past 24 hours): 98.5 Microbiology: BLOOD CX (06/19): NGTD ABSCESS CX: NO GROWTH I/O: 1710/7 VOIDS Drug Levels: Last Trough level: 15.1 on 06/22/19 at 1930 Last dose given 06/22/19 at 0754 Vancomycin Dosing: Dosing Weight: Actual Target Trough: 10-20 A: Based on: therapeutic trough P: 1. Continue Vancomycin 1750 mg IV q12h 2. Follow up Trough level in 5-7 days if vancomycin therapy continues 3. Pharmacy will continue to monitor, follow and adjust therapy as needed. Denice Ojeda RPH, 06/22/192008
[2019-06-23] MEDS: PIPERACILLIN/TAZOBACTAM 3.375 GM in IV NORMAL SALINE 50ML 50 ML IV SCH ×2 (00:21→05:47)
[2019-06-23 03:00] VITALS: BP 133/68
[2019-06-23] MEDS: HYDROcodone/APAP 5/325MG 1 TAB TABLET PO PRN ×3 (04:20→19:05)
[2019-06-23 04:54] LABS: BASO % 0 % (0-3); EOS % 0 % (0-3); HEMATOCRIT 30.9 % (36.0-47.0); HEMOGLOBIN 10.7 g/dL (12.0-15.5); LYMPH # 0.9 x10^3/uL (1.0-4.8); LYMPH % 13 % (24-48); MEAN CORPUSCULAR HEMOGLOBIN 47 pg (25-35); MEAN CORPUSCULAR HGB CONC 35 g/dL (31-37); MEAN CORPUSCULAR VOLUME 137 fL (79-100); MONO # 0.8 x10^3/uL (0.0-1.1); MONO % 11 % (0-9); NEUT # 5.5 x10^3/uL (1.8-7.7); NEUT % 76 % (31-73); PLATELET COUNT 298 x10^3/uL (140-400); RED BLOOD COUNT 2.27 x10^6/uL (3.50-5.40); RED CELL DISTRIBUTION WIDTH 15.9 % (11.5-14.5); WHITE BLOOD COUNT 7.3 x10^3/uL (4.0-11.0)
[2019-06-23 05:16] LABS: CALCIUM 9.2 mg/dL (8.5-10.1); CREATININE 1.2 mg/dL (0.6-1.0); GFR 55.4; POTASSIUM 3.9 mmol/L (3.5-5.1)
[2019-06-23] MEDS: LEVOTHYROXINE 88 MCG TABLET PO SCH (05:47)
[2019-06-23] MEDS: PANTOPRAZOLE 40 MG TABLET.DR. PO SCH (05:47)
[2019-06-23 07:00] VITALS: BP 128/73
--- NOTE | 2019-06-23 07:45 | PDOC ---
Infectious Disease Note Subjective Subjective Better overall Hungry No F/C/S/N/V/D/rash. + Flatus ROS ROS o/w neg Vital Sign Vital Signs Vital Signs Date Time Temp Pulse Resp B/P (MAP) Pulse Ox O2 Delivery O2 Flow Rate FiO2 06/23/19 05:20 16 Room Air 06/23/19 03:00 97.8 56 133/68 (89) 93 97.8 06/22/19 18:00 4.0 Physical Exam PHYSICAL EXAM CONSTITUTIONAL: She is pleasant, cooperative. She is in no acute distress. She is sitting upright in bed. HEENT: Pupils are equal and reactive. She had normal conjunctivae. Oral cavity, pharynx was clear. NECK: Supple. Good range of motion. No JVD. LUNGS: Clear. HEART: S1, S2. ABDOMEN: Soft, nontender, no guarding or rebound. EXTREMITIES: Without clubbing, cyanosis. She has trace + lower extremity edema to her right area, on the lateral aspect she has a small sized area. There is no gross drainage. She has three discrete lesions, one was up in the middle third of her tibia in the anterior medial aspect now less red and looking pustular and the one just above her ankle is somewhat fluctuant. They are well circumscribed approximately a centimeter and half and painful- ankle is better and packed SKIN: Without generalized signs of rash. NEUROLOGIC: She is nonfocal. PSYCHIATRIC: Affect is appropriate. Labs Lab Laboratory Tests Test 06/22/19 19:30 06/23/19 04:05 Vancomycin Level Trough 15.1 mcg/mL (10.0-20.0) Vancomycin Last Dose Date 06/22/19 Vancomycin Last Dose Time 0800 White Blood Count 7.3 x10^3/uL (4.0-11.0) Red Blood Count 2.27 x10^6/uL (3.50-5.40) Hemoglobin 10.7 g/dL (12.0-15.5) Hematocrit 30.9 % (36.0-47.0) Mean Corpuscular Volume 137 fL (79-100) Mean Corpuscular Hemoglobin 47 pg (25-35) Mean Corpuscular Hemoglobin Concent 35 g/dL (31-37) Red Cell Distribution Width 15.9 % (11.5-14.5) Platelet Count 298 x10^3/uL (140-400) Neutrophils (%) (Auto) 76 % (31-73) Lymphocytes (%) (Auto) 13 % (24-48) Monocytes (%) (Auto) 11 % (0-9) Eosinophils (%) (Auto) 0 % (0-3) Basophils (%) (Auto) 0 % (0-3) Neutrophils # (Auto) 5.5 x10^3/uL (1.8-7.7) Lymphocytes # (Auto) 0.9 x10^3/uL (1.0-4.8) Monocytes # (Auto) 0.8 x10^3/uL (0.0-1.1) Eosinophils # (Auto) 0.0 x10^3/uL (0.0-0.7) Basophils # (Auto) 0.0 x10^3/uL (0.0-0.2) Sodium Level 143 mmol/L (136-145) Potassium Level 3.9 mmol/L (3.5-5.1) Chloride Level 107 mmol/L (98-107) Carbon Dioxide Level 27 mmol/L (21-32) Anion Gap 9 (6-14) Blood Urea Nitrogen 9 mg/dL (7-20) Creatinine 1.2 mg/dL (0.6-1.0) Estimated GFR (Cockcroft-Gault) 55.4 Glucose Level 95 mg/dL (70-99) Calcium Level 9.2 mg/dL (8.5-10.1) Micro MRI- 06/20 IMPRESSION: 1. Cellulitis along the medial aspect of the lower leg, ankle and extending along the medial foot with a superimposed small developing abscess measuring 1.2 x 0.5 x 1.8 cm. Likely a tiny amount of gas within this collection. Note is made that this collection does not exhibit confluent fluid signal internally and may be difficult to drain at this time. No fluid collection seen elsewhere. No findings of osteomyelitis. 2. Findings in keeping with mild plantar fasciitis. 3. Mild distal Achilles tendinosis. 4. Lobulated ganglion cyst emanating from the posterior aspect of ankle from the lateral gutter measuring up to 2 cm in maximum dimension. Microbiology 06/19/19 Blood Culture - Preliminary, Resulted NO GROWTH AFTER 1 DAY Objective Assessment Staph aureus 06/19 Mild Cr increase S/p Incision and drainage, right leg deep abscesses CPT 66011 (x3 locations) 06/22 no bone RLE cellulitis RLE abscess s/p I and D in ER 06/19 MRI reviewed - small fluid collection - no Osteo -cults neg so far Leukocytosis - better Leg nodules - ? Erythema Nodsum - abscess Plan Plan of Care S/p Dexamethasone 06/22 Discont Vanc with mild Cr increase and dose po Zyvox d/c Tramadol D/c Zosyn to taper and begin Cefazolin for now F/u labs in am and cults Wound care per wound care and Ortho D/w Nursing CHELITA JHAVERI MD Jun 23, 2019 07:45
[2019-06-23] MEDS: ENOXAPARIN 40 MG/0.4 ML SYRINGE. SQ SCH (08:28)
[2019-06-23] MEDS: CHOLECALCIFEROL (VITAMIN D3) 1,000 UNIT TABLET PO SCH (08:30)
[2019-06-23] MEDS: LACTOBACILLUS RHAMNOSUS GG 1 CAPSULE. PO SCH ×2 (08:30→20:48)
[2019-06-23] MEDS: CYANOCOBALAMIN (VITAMIN B-12) 1,000 MCG TABLET. PO SCH (08:30)
[2019-06-23] MEDS: LINEZOLID 600 MG TABLET PO SCH ×2 (08:31→20:48)
--- NOTE | 2019-06-23 08:50 | PDOC ---
PROGRESS NOTES Chief Complaint Chief Complaint Impression and Plan: Right leg abscess - near right medial malleolus, s/p I&D and culture with blood cultures. Empiric clindamycin given, will treat with ancef No evidence of deep vein thrombosis within the right lower extremity. Right leg cellulitis - spares the foot. Red raised lesions - erythema nodosum in 2 locations. Will see how she responds to antibiotics (no history of GI issues or pulmonary issues, no sarcoid) Leukocytosis - with tachycardia and cellulitis // sepsis, POA, given antibiotics and fluids. Macrocytosis with anemia - B12 levels greater than 2000 Hypothyroidism - will cont meds Vitamin D insufficiency - will cont meds Elevated fasting glucose - follow results of HBA1c. Unable to walk - 2/2 RLE pain, will have wound care to see, pain control, orthopedic consultation General diet PPX - lovenox FULL CODE Dispo - inpatient for right leg cellulitis and abscess failing outpatient treatment D/c Zosyn to taper and begin Cefazolin for now follow up on cultures id following Operative Note Operative Note Operative Note Date of Procedure: June 22, 2019 Pre-Op Diagnosis: Furuncle of right lower limb (multiple, there are three separate furuncles) L02.425 Post-Op Diagnosis: Same Procedure: Incision and drainage, right leg deep abscesses CPT 50941 (x3 locations) Surgeon: Brady Reyes MD Anesthesia: General EBL: 10 mL Specimens Obtained: Swab cultures for aerobic and anaerobic of the proximal abscess, specimen cup for aerobic and anaerobic of the middle abscess. Complications: none Drains: Iodoform packing Findings: Three pururent abscesses right lower leg Indications for Procedure: The patient is a 58-year-old woman who presented with multiple abscesses in the right lower leg. She had drainage of one of them in the emergency room, but still has pain and drainage at that location, and it was very painful for her. She has 2 other abscesses which have not yet been drained. I recommended surgical incision and drainage and possible packing open. History of Present Illness History of Present Illness Feeling better compared to admission. The patient has less discomfort over the affected area, no fever or chills reported overnight. Reassurance has been provided no concerns voiced during my encounter Vitals Vitals Vital Signs Date Time Temp Pulse Resp B/P (MAP) Pulse Ox O2 Delivery O2 Flow Rate FiO2 06/23/19 07:00 98.6 69 18 128/73 (91) 95 Room Air 98.6 06/22/19 18:00 4.0 Physical Exam Physical Exam CONSTITUTIONAL: She is pleasant, cooperative. She is in no acute distress. She is sitting upright in bed. HEENT: Pupils are equal and reactive. She had normal conjunctivae. Oral cavity, pharynx was clear. NECK: Supple. Good range of motion. No JVD. LUNGS: Clear. HEART: S1, S2. ABDOMEN: Soft, nontender, no guarding or rebound. EXTREMITIES: Without clubbing, cyanosis. She has trace + lower extremity edema to her right area, on the lateral aspect she has a small sized area. There is no gross drainage. She has three discrete lesions, one was up in the middle third of her tibia in the anterior medial aspect now less red and looking pustular and the one just above her ankle is somewhat fluctuant. They are well circumscribed approximately a centimeter and half and painful- ankle is better and packed SKIN: Without generalized signs of rash. NEUROLOGIC: She is nonfocal. PSYCHIATRIC: Affect is appropriate. General: Alert, Cooperative Heart: Regular rate Abdomen: Soft Extremities: Other (she has a dressing over the right ankle medially, with small abscess superficially and some packing. She has 2 more discrete abscesses, one in the bathroom mid tibia and one more proximally, both of which seem superficial, quite tender, erythematous, and slightly fluctuant. She has a good dorsalis pedis pulse and normal sensation in the foot. Normal neurovascular function distally. No evidence of compartment syndrome. There is mild cellulitis of the leg, mostly around the areas of the abscesses. I examined the posterior ankle, where she has a ganglion on the imaging, and this is asymptomatic and not palpable.) Skin: Other (abscess lesions as above.) Labs LABS VENOUS LOWER EXTREMITY RIGHT History: Edema. Erythema. Right leg abscess versus DVT. Comparison: None. Discussion: Multiple longitudinal and transverse high resolution real-time images of the venous system of right lower extremity were obtained with color and Doppler sampling. The common femoral, superficial femoral, popliteal and proximal calf veins are all patent and demonstrate normal flow and compressibility. Normal respiratory phasicity and augmentation is present. Right lower extremity subcutaneous edema. Complex fluid collection within the right medial lower leg at the level of the ankle measures 2.4 x 2.1 x 0.8 cm. Impression: 1. No evidence of deep vein thrombosis within the right lower extremity. 2. Complex fluid collection medial to the right ankle, may represent abscesses if concern for infection. Electronically signed by: Braxton Ferrera DO (06/19/2019 4:16 PM) [id number] DICTATED and SIGNED BY: BRAXTON FERRERA DO DATE: 06/19/19 1616 INDICATION: Ankle abscess. COMPARISON: None. TECHNIQUE: Multiplanar MR imaging of the right ankle performed prior to and after the intravenous demonstration of 25 cc Dotarem. FINDINGS: Bones/cartilage: No acute fracture. No signal changes of osteomyelitis. Incomplete fat suppression noted at the periphery of the lateral malleolus. Plantar calcaneal spur. Scattered very mild degenerative changes. No focal full-thickness chondral loss at the ankle. Ligaments: Intact syndesmotic ligaments. Intact ATFL, CFL and PTFL. Intact deltoid ligament complex. Intact spring ligament. Musculotendinous: Intact flexor tendons. Intact peroneal tendons. Intact extensor tendons. Mild distal Achilles tendinosis. Sinus Tarsi: Partial replacement by edema-like signal. Tarsal tunnel: Unremarkable. Plantar fascia: Thickening of the plantar fascia central band with internal signal elevation proximally, a thin T2 hyperintense cleft at its calcaneal attachment and minimal edema within a plantar calcaneal spur, image 12 series 8. Miscellaneous: Subcutaneous edema with overlying skin thickening and enhancement at the medial ankle/distal leg and extending along the medial aspect of the foot. Superimposed small developing abscess, image 14 series 11, measuring 1.2 cm AP by 0.5 cm transverse by 1.8 cm craniocaudal. The presence of heterogeneous internal signal on the T2 sequences suggests that this may not be easily drainable. Tiny foci of internal susceptibility artifact likely a trace amount of gas, image 10 series 10. Lobulated ganglion cyst emanating from the region of the PTFL measuring 1.9 cm transverse by 1.3 cm AP by 2.0 cm craniocaudal. Very small amount of retrocalcaneal bursal fluid. IMPRESSION: 1. Cellulitis along the medial aspect of the lower leg, ankle and extending along the medial foot with a superimposed small developing abscess measuring 1.2 x 0.5 x 1.8 cm. Likely a tiny amount of gas within this collection. Note is made that this collection does not exhibit confluent fluid signal internally and may be difficult to drain at this time. No fluid collection seen elsewhere. No findings of osteomyelitis. 2. Findings in keeping with mild plantar fasciitis. 3. Mild distal Achilles tendinosis. 4. Lobulated ganglion cyst emanating from the posterior aspect of ankle from the lateral gutter measuring up to 2 cm in maximum dimension. Electronically signed by: TONI BOO MD (06/20/2019 5:17 PM) [id number] Laboratory Tests Test 06/22/19 19:30 06/23/19 04:05 Vancomycin Level Trough 15.1 mcg/mL (10.0-20.0) Vancomycin Last Dose Date 06/22/19 Vancomycin Last Dose Time 0800 White Blood Count 7.3 x10^3/uL (4.0-11.0) Red Blood Count 2.27 x10^6/uL (3.50-5.40) Hemoglobin 10.7 g/dL (12.0-15.5) Hematocrit 30.9 % (36.0-47.0) Mean Corpuscular Volume 137 fL (79-100) Mean Corpuscular Hemoglobin 47 pg (25-35) Mean Corpuscular Hemoglobin Concent 35 g/dL (31-37) Red Cell Distribution Width 15.9 % (11.5-14.5) Platelet Count 298 x10^3/uL (140-400) Neutrophils (%) (Auto) 76 % (31-73) Lymphocytes (%) (Auto) 13 % (24-48) Monocytes (%) (Auto) 11 % (0-9) Eosinophils (%) (Auto) 0 % (0-3) Basophils (%) (Auto) 0 % (0-3) Neutrophils # (Auto) 5.5 x10^3/uL (1.8-7.7) Lymphocytes # (Auto) 0.9 x10^3/uL (1.0-4.8) Monocytes # (Auto) 0.8 x10^3/uL (0.0-1.1) Eosinophils # (Auto) 0.0 x10^3/uL (0.0-0.7) Basophils # (Auto) 0.0 x10^3/uL (0.0-0.2) Sodium Level 143 mmol/L (136-145) Potassium Level 3.9 mmol/L (3.5-5.1) Chloride Level 107 mmol/L (98-107) Carbon Dioxide Level 27 mmol/L (21-32) Anion Gap 9 (6-14) Blood Urea Nitrogen 9 mg/dL (7-20) Creatinine 1.2 mg/dL (0.6-1.0) Estimated GFR (Cockcroft-Gault) 55.4 Glucose Level 95 mg/dL (70-99) Calcium Level 9.2 mg/dL (8.5-10.1) Assessment and Plan Assessmemt and Plan Problems Medical Problems: (1) Cellulitis and abscess of leg Status: Acute Comment Review of Relevant I have reviewed the following items bijan (where applicable) has been applied. Labs Laboratory Tests Test 06/22/19 19:30 06/23/19 04:05 Vancomycin Level Trough 15.1 mcg/mL (10.0-20.0) Vancomycin Last Dose Date 06/22/19 Vancomycin Last Dose Time 0800 White Blood Count 7.3 x10^3/uL (4.0-11.0) Red Blood Count 2.27 x10^6/uL (3.50-5.40) Hemoglobin 10.7 g/dL (12.0-15.5) Hematocrit 30.9 % (36.0-47.0) Mean Corpuscular Volume 137 fL (79-100) Mean Corpuscular Hemoglobin 47 pg (25-35) Mean Corpuscular Hemoglobin Concent 35 g/dL (31-37) Red Cell Distribution Width 15.9 % (11.5-14.5) Platelet Count 298 x10^3/uL (140-400) Neutrophils (%) (Auto) 76 % (31-73) Lymphocytes (%) (Auto) 13 % (24-48) Monocytes (%) (Auto) 11 % (0-9) Eosinophils (%) (Auto) 0 % (0-3) Basophils (%) (Auto) 0 % (0-3) Neutrophils # (Auto) 5.5 x10^3/uL (1.8-7.7) Lymphocytes # (Auto) 0.9 x10^3/uL (1.0-4.8) Monocytes # (Auto) 0.8 x10^3/uL (0.0-1.1) Eosinophils # (Auto) 0.0 x10^3/uL (0.0-0.7) Basophils # (Auto) 0.0 x10^3/uL (0.0-0.2) Sodium Level 143 mmol/L (136-145) Potassium Level 3.9 mmol/L (3.5-5.1) Chloride Level 107 mmol/L (98-107) Carbon Dioxide Level 27 mmol/L (21-32) Anion Gap 9 (6-14) Blood Urea Nitrogen 9 mg/dL (7-20) Creatinine 1.2 mg/dL (0.6-1.0) Estimated GFR (Cockcroft-Gault) 55.4 Glucose Level 95 mg/dL (70-99) Calcium Level 9.2 mg/dL (8.5-10.1) Laboratory Tests Test 06/22/19 19:30 06/23/19 04:05 Vancomycin Level Trough 15.1 mcg/mL (10.0-20.0) Vancomycin Last Dose Date 06/22/19 Vancomycin Last Dose Time 0800 White Blood Count 7.3 x10^3/uL (4.0-11.0) Red Blood Count 2.27 x10^6/uL (3.50-5.40) Hemoglobin 10.7 g/dL (12.0-15.5) Hematocrit 30.9 % (36.0-47.0) Mean Corpuscular Volume 137 fL (79-100) Mean Corpuscular Hemoglobin 47 pg (25-35) Mean Corpuscular Hemoglobin Concent 35 g/dL (31-37) Red Cell Distribution Width 15.9 % (11.5-14.5) Platelet Count 298 x10^3/uL (140-400) Neutrophils (%) (Auto) 76 % (31-73) Lymphocytes (%) (Auto) 13 % (24-48) Monocytes (%) (Auto) 11 % (0-9) Eosinophils (%) (Auto) 0 % (0-3) Basophils (%) (Auto) 0 % (0-3) Neutrophils # (Auto) 5.5 x10^3/uL (1.8-7.7) Lymphocytes # (Auto) 0.9 x10^3/uL (1.0-4.8) Monocytes # (Auto) 0.8 x10^3/uL (0.0-1.1) Eosinophils # (Auto) 0.0 x10^3/uL (0.0-0.7) Basophils # (Auto) 0.0 x10^3/uL (0.0-0.2) Sodium Level 143 mmol/L (136-145) Potassium Level 3.9 mmol/L (3.5-5.1) Chloride Level 107 mmol/L (98-107) Carbon Dioxide Level 27 mmol/L (21-32) Anion Gap 9 (6-14) Blood Urea Nitrogen 9 mg/dL (7-20) Creatinine 1.2 mg/dL (0.6-1.0) Estimated GFR (Cockcroft-Gault) 55.4 Glucose Level 95 mg/dL (70-99) Calcium Level 9.2 mg/dL (8.5-10.1) Microbiology 06/19/19 Blood Culture - Preliminary, Resulted NO GROWTH AFTER 3 DAYS 06/19/19 Anaerobic/Aerobic Culture, Resulted Pending 06/19/19 Anaerobic Culture Result 1 (CLAUDIA), Resulted Pending 06/19/19 Aerobic Culture - Preliminary, Resulted 06/19/19 Aerobic Culture Result 1 (CLAUDIA) - Preliminary, Resulted 06/19/19 Gram Stain - Final, Resulted 06/19/19 Gram Stain Result 1 (CLAUDIA) - Final, Resulted 06/19/19 Gram Stain Result 2 (CLAUDIA) - Final, Resulted Medications Current Medications Sodium Chloride 1,000 ml @ 1,000 mls/hr 1X STAT IV Last administered on 06/19/19at 16:12; Start 06/19/19 at 15:48; Stop 06/19/19 at 16:47; Status DC Clindamycin Phosphate 50 ml @ 100 mls/hr 1X STAT IV Last administered on 06/19/19at 16:12; Start 06/19/19 at 15:48; Stop 06/19/19 at 16:17; Status DC Lidocaine HCl 20 ml 1X STAT IJ Last administered on 06/19/19at 16:28; Start 06/19/19 at 16:24; Stop 06/19/19 at 16:25; Status DC Ondansetron HCl (Zofran) 4 mg PRN Q8HRS PRN IV NAUSEA/VOMITING; Start 06/19/19 at 17:00; Stop 06/20/19 at 02:14; Status DC Fentanyl Citrate (Fentanyl 2ml Vial) 50 mcg 1X STAT IV Last administered on 06/19/19at 17:41; Start 06/19/19 at 17:13; Stop 06/19/19 at 17:15; Status DC Tramadol HCl (Ultram) 50 mg PRN Q6HRS PRN PO MILD PAIN 1-3; Start 06/19/19 at 17:45; Stop 06/20/19 at 02:13; Status DC Acetaminophen/ Hydrocodone Bitart (Lortab 5/325) 1 tab PRN Q4HRS PRN PO MODERATE PAIN Last administered on 06/23/19at 04:20; Start 06/19/19 at 17:45 Morphine Sulfate (Morphine Sulfate) 2 mg PRN Q2HR PRN IV PAIN; Start 06/19/19 at 17:45 Vitamin D (Vitamin D3) 2,000 unit DAILY PO Last administered on 06/23/19at 08:30; Start 06/20/19 at 09:00 Levothyroxine Sodium (Synthroid) 88 mcg DAILY06 PO Last administered on 06/23/19at 05:47; Start 06/20/19 at 06:00 Pantoprazole Sodium (Protonix) 40 mg DAILYAC PO Last administered on 06/23/19at 05:47; Start 06/20/19 at 07:30 Tramadol HCl (Ultram) 50 mg PRN Q6HRS PRN PO MILD PAIN 1-3; Start 06/19/19 at 20:30; Stop 06/23/19 at 08:16; Status DC Ondansetron HCl (Zofran) 4 mg PRN Q4HRS PRN IV NAUSEA/VOMITING 1ST CHOICE; Start 06/19/19 at 20:30 Zolpidem Tartrate (Ambien) 5 mg PRN QHS PRN PO INSOMNIA; Start 06/19/19 at 20:30 Acetaminophen (Tylenol) 650 mg PRN Q4HRS PRN PO TEMP OVER 100.4F OR HEADACHE; Start 06/19/19 at 20:30 Docusate Sodium (Colace) 100 mg PRN BID PRN PO CONSTIPATION 1ST CHOICE; Start 06/19/19 at 20:30 Piperacillin Sod/ Tazobactam Sod 3.375 gm/Sodium Chloride 50 ml @ 100 mls/hr Q6HRS IV Last administered on 06/23/19at 05:47; Start 06/20/19 at 00:00; Stop 06/23/19 at 08:12; Status DC Vancomycin HCl 2 gm/Sodium Chloride 500 ml @ 250 mls/hr 1X ONCE IV Last administered on 06/19/19at 21:14; Start 06/19/19 at 21:00; Stop 06/19/19 at 22:59; Status DC Vancomycin HCl (Vanco Per Pharmacy) 1 each PRN DAILY PRN MC SEE COMMENTS Last administered on 06/22/19at 20:08; Start 06/19/19 at 20:30; Stop 06/23/19 at 08:16; Status DC Enoxaparin Sodium (Lovenox 40mg Syringe) 40 mg Q24H SQ ; Start 06/19/19 at 21:00; Stop 06/19/19 at 20:40; Status DC Enoxaparin Sodium (Lovenox 40mg Syringe) 40 mg BID SQ Last administered on 06/23/19at 08:28; Start 06/19/19 at 21:00 Cyanocobalamin (Vitamin B-12) 1,000 mcg DAILY PO Last administered on 06/23/19at 08:30; Start 06/20/19 at 09:00 Vancomycin HCl 1.75 gm/Sodium Chloride 500 ml @ 250 mls/hr Q12H IV Last admin istered on 06/20/19at 21:03; Start 06/20/19 at 09:00; Stop 06/21/19 at 07:09; Status DC Vancomycin HCl (Vancomycin Trough Level) 1 each 1X ONCE MC ; Start 06/21/19 at 08:30; Stop 06/21/19 at 08:31; Status Cancel Lactobacillus Rhamnosus (Culturelle) 1 cap BID PO Last administered on 06/23/19at 08:30; Start 06/20/19 at 09:00 Gadoterate Meglumine (Dotarem) 10 ml 1X ONCE IVP Last administered on 06/20/19at 12:31; Start 06/20/19 at 12:45; Stop 06/20/19 at 12:46; Status DC Gadoterate Meglumine (Dotarem) 15 ml 1X ONCE IVP Last administered on 06/20/19at 12:30; Start 06/20/19 at 12:15; Stop 06/20/19 at 12:19; Status DC Vancomycin HCl 1.75 gm/Sodium Chloride 500 ml @ 250 mls/hr Q12H IV Last administered on 06/22/19at 21:28; Start 06/21/19 at 20:00; Stop 06/23/19 at 08:16; Status DC Vancomycin HCl (Vancomycin Trough Level) 1 each 1X ONCE MC Last administered on 06/22/19at 19:30; Start 06/22/19 at 19:30; Stop 06/22/19 at 19:31; Status DC Ondansetron HCl (Zofran) 4 mg PRN Q6HRS PRN IV NAUSEA/VOMITING; Start 06/22/19 at 07:00; Stop 06/22/19 at 19:00; Status DC Fentanyl Citrate (Fentanyl 2ml Vial) 25 mcg PRN Q5MIN PRN IV MILD PAIN 1-3; Start 06/22/19 at 07:00; Stop 06/22/19 at 19:00; Status DC Fentanyl Citrate (Fentanyl 2ml Vial) 50 mcg PRN Q5MIN PRN IV MODERATE TO SEVERE PAIN; Start 06/22/19 at 07:00; Stop 06/22/19 at 19:00; Status DC Morphine Sulfate (Morphine Sulfate) 1 mg PRN Q10MIN PRN IV SEVERE PAIN 7-10 Last administered on 06/22/19at 13:43; Start 06/22/19 at 07:00; Stop 06/22/19 at 19:00; Status DC Ringer's Solution 1,000 ml @ 30 mls/hr Q24H IV Last administered on 06/22/19at 07:54; Start 06/22/19 at 07:00; Stop 06/22/19 at 18:59; Status DC Hydromorphone HCl (Dilaudid) 0.5 mg PRN Q10MIN PRN IV SEV PAIN, Second choice Last administered on 06/22/19at 14:04; Start 06/22/19 at 07:00; Stop 06/22/19 at 19:00; Status DC Prochlorperazine Edisylate (Compazine) 5 mg PACU PRN PRN IV NAUSEA, MRX1 Last administered on 06/22/19at 13:44; Start 06/22/19 at 07:00; Stop 06/22/19 at 19:00; Status DC Bupivacaine HCl/ Epinephrine Bitart (Sensorcaine-Epi 0.25%-1:[id number] Mpf) 30 ml STK-MED ONCE .ROUTE ; Start 06/22/19 at 11:32; Stop 06/22/19 at 11:33; Status DC Propofol 20 ml @ As Directed STK-MED ONCE IV ; Start 06/22/19 at 11:49; Stop 06/22/19 at 11:49; Status DC Famotidine (Pepcid Vial) 20 mg STK-MED ONCE .ROUTE ; Start 06/22/19 at 11:49; Stop 06/22/19 at 11:49; Status DC Lidocaine HCl (Lidocaine Pf 2% Vial) 5 ml STK-MED ONCE .ROUTE ; Start 06/22/19 at 11:49; Stop 06/22/19 at 11:49; Status DC Ondansetron HCl (Zofran) 4 mg STK-MED ONCE .ROUTE ; Start 06/22/19 at 11:49; Stop 06/22/19 at 11:49; Status DC Dexamethasone Sodium Phosphate (Decadron) 4 mg STK-MED ONCE .ROUTE ; Start 06/22/19 at 11:49; Stop 06/22/19 at 11:49; Status DC Fentanyl Citrate (Fentanyl 2ml Vial) 100 mcg STK-MED ONCE .ROUTE ; Start 06/22/19 at 11:49; Stop 06/22/19 at 11:49; Status DC Midazolam HCl (Versed) 2 mg STK-MED ONCE .ROUTE ; Start 06/22/19 at 11:50; Stop 06/22/19 at 11:50; Status DC Ketamine HCl (Ketamine) 50 mg STK-MED ONCE .ROUTE ; Start 06/22/19 at 11:51; Stop 06/22/19 at 11:51; Status DC Fentanyl Citrate (Fentanyl 2ml Vial) 100 mcg STK-MED ONCE .ROUTE ; Start 06/22/19 at 13:11; Stop 06/22/19 at 13:11; Status DC Hydromorphone HCl (Dilaudid) 2 mg STK-MED ONCE .ROUTE ; Start 06/22/19 at 14:09; Stop 06/22/19 at 14:09; Status DC Cefazolin Sodium (Ancef) 1 gm Q8HRS IVP ; Start 06/23/19 at 14:00 Linezolid (Zyvox) 600 mg BID PO Last administered on 06/23/19at 08:31; Start 06/23/19 at 09:00 Active Scripts Active Reported Tramadol Hcl 50 Mg Tablet 1 Tab PO PRN Q6HRS Pantoprazole Sodium (Pantoprazole Sodium) 40 Mg Tablet.dr 1 Tab PO DAILY Vitamin D3 (Cholecalciferol (Vitamin D3)) 1,000 Unit Tablet 2,000 Unit PO DAILY Alendronate Sodium 35 Mg Tablet 1 Tab PO WEEKLY Synthroid (Levothyroxine Sodium) 88 Mcg Tablet 88 Mcg PO DAILYAC Vitals/I & O Vital Sign - Last 24 Hours 06/22/19 06/22/19 06/22/19 06/22/19 09:52 10:52 11:00 11:36 Temp 98.2 97.4 98.2 97.4 Pulse 91 70 Resp 18 15 B/P (MAP) 141/68 (92) 160/106 Pulse Ox 99 93 98 94 O2 Delivery Room Air Room Air Room Air Room Air O2 Flow Rate 3.0 4.0 06/22/19 06/22/19 06/22/19 06/22/19 13:15 13:15 13:28 13:30 Temp 98.5 98.5 98.5 98.5 Pulse 77 73 Resp 15 15 15 B/P (MAP) 152/85 160/75 Pulse Ox 94 94 94 O2 Delivery Room Air Room Air Room Air Room Air O2 Flow Rate 3.0 06/22/19 06/22/19 06/22/19 06/22/19 13:43 13:45 13:49 13:58 Temp 98.5 98.5 Pulse 72 Resp 15 15 15 B/P (MAP) 166/81 Pulse Ox 94 96 96 O2 Delivery Room Air Room Air Room Air Room Air 06/22/19 06/22/19 06/22/19 06/22/19 14:00 14:04 14:13 14:13 Temp 98.5 98.5 Pulse 64 Resp 15 15 B/P (MAP) 153/80 Pulse Ox 99 99 93 93 O2 Delivery Room Air Room Air Room Air Room Air O2 Flow Rate 3.0 3.0 4.0 4.0 06/22/19 06/22/19 06/22/19 06/22/19 14:40 15:00 15:11 15:15 Temp 98.2 98.2 Pulse 64 57 57 Resp 12 16 B/P (MAP) 138/69 (92) 138/69 (92) 146/68 (94) Pulse Ox 93 92 95 O2 Delivery Room Air Nasal Cannula O2 Flow Rate 4.0 4.0 4.0 06/22/19 06/22/19 06/22/19 06/22/19 15:30 15:45 16:00 16:30 Pulse 57 61 61 64 B/P (MAP) 136/66 (89) 133/65 (87) 139/60 (86) 150/63 (92) Pulse Ox 99 100 92 98 O2 Flow Rate 4.0 4.0 4.0 4.0 06/22/19 06/22/19 06/22/19 06/22/19 17:00 18:00 19:00 19:45 Temp 98.2 98.2 Pulse 62 56 66 Resp 18 B/P (MAP) 131/71 (91) 124/74 (91) 144/76 (98) Pulse Ox 100 100 93 O2 Delivery Room Air Room Air O2 Flow Rate 4.0 4.0 06/22/19 06/22/19 06/22/19 06/23/19 21:29 22:30 23:00 03:00 Temp 97.9 97.8 97.9 97.8 Pulse 63 56 Resp 16 14 18 18 B/P (MAP) 148/80 (102) 133/68 (89) Pulse Ox 95 93 O2 Delivery Room Air Room Air Room Air Room Air 06/23/19 06/23/19 06/23/19 04:20 05:20 07:00 Temp 98.6 98.6 Pulse 69 Resp 18 16 18 B/P (MAP) 128/73 (91) Pulse Ox 95 O2 Delivery Room Air Room Air Room Air Intake and Output 06/22/19 06/22/19 06/23/19 15:00 23:00 07:00 Intake Total 150 ml 2750 ml Output Total 10 ml 300 ml Balance 140 ml 2450 ml GUME AYALA MD Jun 23, 2019 08:50
[2019-06-23 11:00] VITALS: BP 118/77
--- NOTE | 2019-06-23 11:54 | NUR ---
SW following. Discussed with RN, pt will need IV abx, still pending which kind, dose and frequency. Anticipate pt will be here through the weekend. IMELDA will continue to follow.
--- NOTE | 2019-06-23 12:24 | NUR ---
Wound Care: Patient seen per wound care follow up. See wound assessment. Dressing removed and wound cleansed, assessed, and pictured. Patient s/p I&D to right leg with a proximal, middle, and distal sites all sutured with packing. Dressing change orders per Amy as follows: Remove 1 inch of packing per day from the proximal and distal wound, and then 2 inch per day to the middle wound. Packing removed, and redressed with ABD pads, kerlix, and ANDI wrap per patient request. No other wounds noted. RN to change dressing daily per Amy's orders. Possible follow up in the wound clinic after discharge. Bed lowered and call light in reach. Spoke with RN regarding POC.
[2019-06-23] MEDS ORDERED: ceFAZolin SODIUM IV Push 1 GM VIAL. IVP SCH (14:00)
[2019-06-23 15:00] VITALS: BP 120/74
[2019-06-23 19:00] VITALS: BP 151/98
[2019-06-23] MEDS: ACETAMINOPHEN 325 MG TABLET. PO PRN (20:49)
[2019-06-23 23:00] VITALS: BP 134/69
[2019-06-24] MEDS: HYDROcodone/APAP 5/325MG 1 TAB TABLET PO PRN ×3 (02:49→19:32)
[2019-06-24 03:00] VITALS: BP 126/68
[2019-06-24 05:21] LABS: CALCIUM 9.1 mg/dL (8.5-10.1); CREATININE 2.5 mg/dL (0.6-1.0); GFR 23.8; POTASSIUM 3.5 mmol/L (3.5-5.1)
[2019-06-24] MEDS: LEVOTHYROXINE 88 MCG TABLET PO SCH (06:01)
[2019-06-24] MEDS: PANTOPRAZOLE 40 MG TABLET.DR. PO SCH (06:01)
[2019-06-24 07:00] VITALS: BP 141/71
--- NOTE | 2019-06-24 07:18 | PDOC ---
Infectious Disease Note Subjective Subjective Better overall Hungry urinating well and a lot No F/C/S/N/V/D/rash. + Flatus Vital Sign Vital Signs Vital Signs Date Time Temp Pulse Resp B/P (MAP) Pulse Ox O2 Delivery O2 Flow Rate FiO2 06/24/19 03:00 99.0 82 18 126/68 (87) 95 Room Air 99.0 Physical Exam PHYSICAL EXAM CONSTITUTIONAL: She is pleasant, cooperative. She is in no acute distress. She is sitting upright in bed. HEENT: Pupils are equal and reactive. She had normal conjunctivae. Oral cavity, pharynx was clear. NECK: Supple. Good range of motion. No JVD. LUNGS: Clear. HEART: S1, S2. ABDOMEN: Soft, nontender, no guarding or rebound. EXTREMITIES: Without clubbing, cyanosis. She has trace + lower extremity edema to her right area, on the lateral aspect she has a small sized area. There is no gross drainage. She has three discrete lesions, one was up in the middle third of her tibia that is packed with min erythema and still some ternderness. in the anterior medial aspect now less red and packed - looks better and the one just above her ankle is much better and packed. They are SKIN: Without generalized signs of rash. NEUROLOGIC: She is nonfocal. PSYCHIATRIC: Affect is appropriate. Labs Lab Laboratory Tests Test 06/24/19 04:25 Sodium Level 147 mmol/L (136-145) Potassium Level 3.5 mmol/L (3.5-5.1) Chloride Level 112 mmol/L (98-107) Carbon Dioxide Level 25 mmol/L (21-32) Anion Gap 10 (6-14) Blood Urea Nitrogen 12 mg/dL (7-20) Creatinine 2.5 mg/dL (0.6-1.0) Estimated GFR (Cockcroft-Gault) 23.8 Glucose Level 135 mg/dL (70-99) Calcium Level 9.1 mg/dL (8.5-10.1) Micro MRI- 06/20 IMPRESSION: 1. Cellulitis along the medial aspect of the lower leg, ankle and extending along the medial foot with a superimposed small developing abscess measuring 1.2 x 0.5 x 1.8 cm. Likely a tiny amount of gas within this collection. Note is made that this collection does not exhibit confluent fluid signal internally and may be difficult to drain at this time. No fluid collection seen elsewhere. No findings of osteomyelitis. 2. Findings in keeping with mild plantar fasciitis. 3. Mild distal Achilles tendinosis. 4. Lobulated ganglion cyst emanating from the posterior aspect of ankle from the lateral gutter measuring up to 2 cm in maximum dimension. Microbiology 06/19/19 Blood Culture - Preliminary, Resulted NO GROWTH AFTER 1 DAY Objective Assessment MRSA from 06/19 and gram stain 06/22 + for GPC Mild Cr increase S/p Incision and drainage, right leg deep abscesses CPT 05741 (x3 locations) no bone - better RLE cellulitis RLE abscess s/p I and D in ER 06/19 MRI reviewed - small fluid collection - no Osteo -cults neg so far Leukocytosis - better Leg nodules - ? Erythema Nodsum - abscess Plan Plan of Care Renal consult S/p Dexamethasone 06/22 Discont Vanc 06/23 with mild Cr increase and dosed po Zyvox d/c Tramadol D/c Zosyn tapered Cefazolin for staph aureus 06/23 but d/c'd 06/23 after MRSA returned 06/23 afternoon F/u labs in am and cults Wound care per wound care and Ortho D/w Nursing CHELITA HJAVERI MD Jun 24, 2019 07:18
[2019-06-24] MEDS: CYANOCOBALAMIN (VITAMIN B-12) 1,000 MCG TABLET. PO SCH (09:00)
[2019-06-24] MEDS: CHOLECALCIFEROL (VITAMIN D3) 1,000 UNIT TABLET PO SCH (09:00)
[2019-06-24] MEDS: LACTOBACILLUS RHAMNOSUS GG 1 CAPSULE. PO SCH ×2 (09:00→21:06)
[2019-06-24] MEDS: LINEZOLID 600 MG TABLET PO SCH ×2 (09:01→21:06)
[2019-06-24] MEDS: MORPHINE SULFATE 2 MG/ML VIAL. IV PRN (10:29)
[2019-06-24 11:00] VITALS: BP 134/85
--- NOTE | 2019-06-24 11:30 | PDOC ---
PROGRESS NOTES Chief Complaint Chief Complaint Impression and Plan: Right leg abscess - near right medial malleolus, s/p I&D and culture with blood cultures. Empiric clindamycin given, will treat with ancef No evidence of deep vein thrombosis within the right lower extremity. Right leg cellulitis - spares the foot. Red raised lesions - erythema nodosum in 2 locations. Will see how she responds to antibiotics (no history of GI issues or pulmonary issues, no sarcoid) Leukocytosis - with tachycardia and cellulitis // sepsis, POA, given antibiotics and fluids. Macrocytosis with anemia - B12 levels greater than 2000 Hypothyroidism - will cont meds Vitamin D insufficiency - will cont meds Elevated fasting glucose - follow results of HBA1c. Unable to walk - 2/2 RLE pain, will have wound care to see, pain control, orthopedic consultation Methicillin - resistant Staphylococcus aureus General diet PPX - lovenox FULL CODE Dispo - inpatient for right leg cellulitis and abscess failing outpatient treatment D/c Zosyn to taper and begin Cefazolin for now follow up on cultures id following 38 min pt exam, chart review, > 50% of time spent with exam, chart review, pt care coordination Operative Note Operative Note Operative Note Date of Procedure: June 22, 2019 Pre-Op Diagnosis: Furuncle of right lower limb (multiple, there are three separate furuncles) L02.425 Post-Op Diagnosis: Same Procedure: Incision and drainage, right leg deep abscesses CPT 08408 (x3 locations) Surgeon: Brady Reyes MD Anesthesia: General EBL: 10 mL Specimens Obtained: Swab cultures for aerobic and anaerobic of the proximal abscess, specimen cup for aerobic and anaerobic of the middle abscess. Complications: none Drains: Iodoform packing Findings: Three pururent abscesses right lower leg Indications for Procedure: The patient is a 58-year-old woman who presented with multiple abscesses in the right lower leg. She had drainage of one of them in the emergency room, but still has pain and drainage at that location, and it was very painful for her. She has 2 other abscesses which have not yet been drained. I recommended surgical incision and drainage and possible packing open. SPEC #: [id number] IVETH: 06/19/19 STATUS: RES REQ #: [id number] RECD: 06/19/[address] [facility] [address]: TEMITOPE MACKEY MD SOURCE: ANKLE ENTR: 06/19/[address] [facility] [address]: [facility] ORDERED: ANAER/AEROB/GS COMMENTS: Specimen Comment: Test(s) Aerobic Culture called to SORAYA on 06/23/2019 at 15:22 EST Procedure Result ------- ----- ANAEROBIC-AEROBIC CULTURE Preliminary Preliminary report ANAEROBIC RES 1 Preliminary Comment No anaerobes recovered in 48 hours. AEROBIC CULT Final Preliminary report Final report METHCILLIN RESISTANT STAPH AUREUS ISOLATED FROM ANKLE WOUND. CALLED TO FELICIANO ROSENBERG RN ON 4N AT 14:30 ON 06/23/19 DW MT * This is a corrected result. * A prior result that was reported as final has been changed. AEROBIC RES 1 Final Staphylococcus aureus Comment 1+ Methicillin - resistant Staphylococcus aureus 1+ Based on resistance to oxacillin this isolate would be resistant to all currently available beta-lactam antimicrobial agents, with the exception of the newer cephalosporins with anti-MRSA activity, such as Ceftaroline This isolate does not demonstrate inducible clindamycin resistance in vitro by D test. ANTIMICROBIAL SUSCEPTIBILITY Final Comment History of Present Illness History of Present Illness Feeling better compared to admission. The patient has less discomfort over the affected area, no fever or chills mrsa pos culture noted Vitals Vitals Vital Signs Date Time Temp Pulse Resp B/P (MAP) Pulse Ox O2 Delivery O2 Flow Rate FiO2 06/24/19 10:59 Room Air 06/24/19 07:00 98.1 85 16 141/71 (94) 95 98.1 Physical Exam Physical Exam CONSTITUTIONAL: She is pleasant, cooperative. She is in no acute distress. She is sitting upright in bed. HEENT: Pupils are equal and reactive. She had normal conjunctivae. Oral cavity, pharynx was clear. NECK: Supple. Good range of motion. No JVD. LUNGS: Clear. HEART: S1, S2. ABDOMEN: Soft, nontender, no guarding or rebound. EXTREMITIES: Without clubbing, cyanosis. She has trace + lower extremity edema to her right area, on the lateral aspect she has a small sized area. There is no gross drainage. She has three discrete lesions, one was up in the middle third of her tibia that is packed with min erythema and still some ternderness. in the anterior medial aspect now less red and packed - looks better and the one just above her ankle is much better and packed. They are SKIN: Without generalized signs of rash. NEUROLOGIC: She is nonfocal. PSYCHIATRIC: Affect is appropriate. General: Alert, Cooperative Heart: Regular rate Abdomen: Soft Extremities: Other (she has a dressing over the right ankle medially, with small abscess superficially and some packing. She has 2 more discrete abscesses, one in the bathroom mid tibia and one more proximally, both of which seem superficial, quite tender, erythematous, and slightly fluctuant. She has a good dorsalis pedis pulse and normal sensation in the foot. Normal neurovascular function distally. No evidence of compartment syndrome. There is mild cellulitis of the leg, mostly around the areas of the abscesses. I examined the posterior ankle, where she has a ganglion on the imaging, and this is asymptomatic and not palpable.) Skin: Other (abscess lesions as above.) Labs LABS ANAEROBIC RES 1 Preliminary Comment No anaerobes recovered in 48 hours. AEROBIC CULT Final Preliminary report Final report METHCILLIN RESISTANT STAPH AUREUS ISOLATED FROM ANKLE WOUND. CALLED TO FELICIANO ROSENBERG RN ON 4N AT 14:30 ON 06/23/19 DW ND * This is a corrected result. * A prior result that was reported as final has been changed. AEROBIC RES 1 Final Staphylococcus aureus Comment 1+ Methicillin - resistant Staphylococcus aureus 1+ Based on resistance to oxacillin this isolate would be resistant to all currently available beta-lactam antimicrobial agents, with the exception of the newer cephalosporins with anti-MRSA activity, such as Ceftaroline This isolate does not demonstrate inducible clindamycin resistance in vitro by D test. ANTIMICROBIAL SUSCEPTIBILITY Final Comment CONTINUED ON NEXT PAGE RUN DATE: 06/23/19 [facility] *LIVE* PAGE 2 RUN TIME: 1610 Specimen Inquiry SPEC: [id number] PATIENT: INDIRA CORLEY Sam [id number] (Continued) -- Procedure Result ANTIMICROBIAL SUSCEPTIBILITY Final (continued) S = Susceptible; I = Intermediate; R = Resistant P = Positive; N = Negative MICS are expressed in micrograms per mL Antibiotic RSLT#1 RSLT#2 RSLT#3 RSLT#4 Ciprofloxacin S =1 Clindamycin S<=0.25 Erythromycin R>=8 Gentamicin S<=0.5 Levofloxacin S =0.5 Linezolid S =2 Oxacillin R>=4 Penicillin R>=0.5 Rifampin S<=0.5 Tetracycline S<=1 Trimethoprim/Sulfa S<=10 Vancomycin S =1 GRAM STAIN Final Laboratory Tests Test 06/24/19 04:25 Sodium Level 147 mmol/L (136-145) Potassium Level 3.5 mmol/L (3.5-5.1) Chloride Level 112 mmol/L (98-107) Carbon Dioxide Level 25 mmol/L (21-32) Anion Gap 10 (6-14) Blood Urea Nitrogen 12 mg/dL (7-20) Creatinine 2.5 mg/dL (0.6-1.0) Estimated GFR (Cockcroft-Gault) 23.8 Glucose Level 135 mg/dL (70-99) Calcium Level 9.1 mg/dL (8.5-10.1) Assessment and Plan Assessmemt and Plan Problems Medical Problems: (1) Cellulitis and abscess of leg Status: Acute Comment Review of Relevant I have reviewed the following items bijan (where applicable) has been applied. Labs Laboratory Tests Test 06/22/19 19:30 06/23/19 04:05 06/24/19 04:25 Vancomycin Level Trough 15.1 mcg/mL (10.0-20.0) Vancomycin Last Dose Date 06/22/19 Vancomycin Last Dose Time 0800 White Blood Count 7.3 x10^3/uL (4.0-11.0) Red Blood Count 2.27 x10^6/uL (3.50-5.40) Hemoglobin 10.7 g/dL (12.0-15.5) Hematocrit 30.9 % (36.0-47.0) Mean Corpuscular Volume 137 fL (79-100) Mean Corpuscular Hemoglobin 47 pg (25-35) Mean Corpuscular Hemoglobin Concent 35 g/dL (31-37) Red Cell Distribution Width 15.9 % (11.5-14.5) Platelet Count 298 x10^3/uL (140-400) Neutrophils (%) (Auto) 76 % (31-73) Lymphocytes (%) (Auto) 13 % (24-48) Monocytes (%) (Auto) 11 % (0-9) Eosinophils (%) (Auto) 0 % (0-3) Basophils (%) (Auto) 0 % (0-3) Neutrophils # (Auto) 5.5 x10^3/uL (1.8-7.7) Lymphocytes # (Auto) 0.9 x10^3/uL (1.0-4.8) Monocytes # (Auto) 0.8 x10^3/uL (0.0-1.1) Eosinophils # (Auto) 0.0 x10^3/uL (0.0-0.7) Basophils # (Auto) 0.0 x10^3/uL (0.0-0.2) Sodium Level 143 mmol/L (136-145) 147 mmol/L (136-145) Potassium Level 3.9 mmol/L (3.5-5.1) 3.5 mmol/L (3.5-5.1) Chloride Level 107 mmol/L (98-107) 112 mmol/L (98-107) Carbon Dioxide Level 27 mmol/L (21-32) 25 mmol/L (21-32) Anion Gap 9 (6-14) 10 (6-14) Blood Urea Nitrogen 9 mg/dL (7-20) 12 mg/dL (7-20) Creatinine 1.2 mg/dL (0.6-1.0) 2.5 mg/dL (0.6-1.0) Estimated GFR (Cockcroft-Gault) 55.4 23.8 Glucose Level 95 mg/dL (70-99) 135 mg/dL (70-99) Calcium Level 9.2 mg/dL (8.5-10.1) 9.1 mg/dL (8.5-10.1) Laboratory Tests Test 06/24/19 04:25 Sodium Level 147 mmol/L (136-145) Potassium Level 3.5 mmol/L (3.5-5.1) Chloride Level 112 mmol/L (98-107) Carbon Dioxide Level 25 mmol/L (21-32) Anion Gap 10 (6-14) Blood Urea Nitrogen 12 mg/dL (7-20) Creatinine 2.5 mg/dL (0.6-1.0) Estimated GFR (Cockcroft-Gault) 23.8 Glucose Level 135 mg/dL (70-99) Calcium Level 9.1 mg/dL (8.5-10.1) Microbiology 06/22/19 Anaerobic/Aerobic Culture, Resulted Pending 06/22/19 Anaerobic Culture Result 1 (CLAUDIA), Resulted Pending 06/22/19 Aerobic Culture, Resulted Pending 06/22/19 Aerobic Culture Result 1 (CLAUDIA), Resulted Pending 06/22/19 Gram Stain - Final, Resulted 06/22/19 Gram Stain Result 1 (CLAUDIA) - Final, Resulted 06/22/19 Gram Stain Result 2 (CLAUDIA) - Final, Resulted 06/19/19 Blood Culture - Preliminary, Resulted NO GROWTH AFTER 4 DAYS Medications Current Medications Sodium Chloride 1,000 ml @ 1,000 mls/hr 1X STAT IV Last administered on 06/19/19at 16:12; Start 06/19/19 at 15:48; Stop 06/19/19 at 16:47; Status DC Clindamycin Phosphate 50 ml @ 100 mls/hr 1X STAT IV Last administered on 06/19/19at 16:12; Start 06/19/19 at 15:48; Stop 06/19/19 at 16:17; Status DC Lidocaine HCl 20 ml 1X STAT IJ Last administered on 06/19/19at 16:28; Start 06/19/19 at 16:24; Stop 06/19/19 at 16:25; Status DC Ondansetron HCl (Zofran) 4 mg PRN Q8HRS PRN IV NAUSEA/VOMITING; Start 06/19/19 at 17:00; Stop 06/20/19 at 02:14; Status DC Fentanyl Citrate (Fentanyl 2ml Vial) 50 mcg 1X STAT IV Last administered on 06/19/19at 17:41; Start 06/19/19 at 17:13; Stop 06/19/19 at 17:15; Status DC Tramadol HCl (Ultram) 50 mg PRN Q6HRS PRN PO MILD PAIN 1-3; Start 06/19/19 at 17:45; Stop 06/20/19 at 02:13; Status DC Acetaminophen/ Hydrocodone Bitart (Lortab 5/325) 1 tab PRN Q4HRS PRN PO MODERATE PAIN Last administered on 06/24/19at 09:14; Start 06/19/19 at 17:45 Morphine Sulfate (Morphine Sulfate) 2 mg PRN Q2HR PRN IV PAIN Last administered on 06/24/19at 10:29; Start 06/19/19 at 17:45 Vitamin D (Vitamin D3) 2,000 unit DAILY PO Last administered on 06/24/19at 09:00; Start 06/20/19 at 09:00 Levothyroxine Sodium (Synthroid) 88 mcg DAILY06 PO Last administered on 06/24/19at 06:01; Start 06/20/19 at 06:00 Pantoprazole Sodium (Protonix) 40 mg DAILYAC PO Last administered on 06/24/19at 06:01; Start 06/20/19 at 07:30 Tramadol HCl (Ultram) 50 mg PRN Q6HRS PRN PO MILD PAIN 1-3; Start 06/19/19 at 20:30; Stop 06/23/19 at 08:16; Status DC Ondansetron HCl (Zofran) 4 mg PRN Q4HRS PRN IV NAUSEA/VOMITING 1ST CHOICE; Start 06/19/19 at 20:30 Zolpidem Tartrate (Ambien) 5 mg PRN QHS PRN PO INSOMNIA; Start 06/19/19 at 20:30 Acetaminophen (Tylenol) 650 mg PRN Q4HRS PRN PO TEMP OVER 100.4F OR HEADACHE Last administered on 06/23/19at 20:49; Start 06/19/19 at 20:30 Docusate Sodium (Colace) 100 mg PRN BID PRN PO CONSTIPATION 1ST CHOICE; Start 06/19/19 at 20:30 Piperacillin Sod/ Tazobactam Sod 3.375 gm/Sodium Chloride 50 ml @ 100 mls/hr Q6HRS IV Last administered on 06/23/19at 05:47; Start 06/20/19 at 00:00; Stop 06/23/19 at 08:12; Status DC Vancomycin HCl 2 gm/Sodium Chloride 500 ml @ 250 mls/hr 1X ONCE IV Last admin istered on 06/19/19at 21:14; Start 06/19/19 at 21:00; Stop 06/19/19 at 22:59; Status DC Vancomycin HCl (Vanco Per Pharmacy) 1 each PRN DAILY PRN MC SEE COMMENTS Last administered on 06/22/19at 20:08; Start 06/19/19 at 20:30; Stop 06/23/19 at 08:16; Status DC Enoxaparin Sodium (Lovenox 40mg Syringe) 40 mg Q24H SQ ; Start 06/19/19 at 21:00; Stop 06/19/19 at 20:40; Status DC Enoxaparin Sodium (Lovenox 40mg Syringe) 40 mg BID SQ Last administered on 06/23/19at 08:28; Start 06/19/19 at 21:00; Stop 06/23/19 at 17:56; Status DC Cyanocobalamin (Vitamin B-12) 1,000 mcg DAILY PO Last administered on 06/24/19at 09:00; Start 06/20/19 at 09:00 Vancomycin HCl 1.75 gm/Sodium Chloride 500 ml @ 250 mls/hr Q12H IV Last administered on 06/20/19at 21:03; Start 06/20/19 at 09:00; Stop 06/21/19 at 07:09; Status DC Vancomycin HCl (Vancomycin Trough Level) 1 each 1X ONCE MC ; Start 06/21/19 at 08:30; Stop 06/21/19 at 08:31; Status Cancel Lactobacillus Rhamnosus (Culturelle) 1 cap BID PO Last administered on 06/24/19at 09:00; Start 06/20/19 at 09:00 Gadoterate Meglumine (Dotarem) 10 ml 1X ONCE IVP Last administered on 06/20/19at 12:31; Start 06/20/19 at 12:45; Stop 06/20/19 at 12:46; Status DC Gadoterate Meglumine (Dotarem) 15 ml 1X ONCE IVP Last administered on 06/20/19at 12:30; Start 06/20/19 at 12:15; Stop 06/20/19 at 12:19; Status DC Vancomycin HCl 1.75 gm/Sodium Chloride 500 ml @ 250 mls/hr Q12H IV Last administered on 06/22/19at 21:28; Start 06/21/19 at 20:00; Stop 06/23/19 at 08:16; Status DC Vancomycin HCl (Vancomycin Trough Level) 1 each 1X ONCE MC Last administered on 06/22/19at 19:30; Start 06/22/19 at 19:30; Stop 06/22/19 at 19:31; Status DC Ondansetron HCl (Zofran) 4 mg PRN Q6HRS PRN IV NAUSEA/VOMITING; Start 06/22/19 at 07:00; Stop 06/22/19 at 19:00; Status DC Fentanyl Citrate (Fentanyl 2ml Vial) 25 mcg PRN Q5MIN PRN IV MILD PAIN 1-3; Start 06/22/19 at 07:00; Stop 06/22/19 at 19:00; Status DC Fentanyl Citrate (Fentanyl 2ml Vial) 50 mcg PRN Q5MIN PRN IV MODERATE TO SEVERE PAIN; Start 06/22/19 at 07:00; Stop 06/22/19 at 19:00; Status DC Morphine Sulfate (Morphine Sulfate) 1 mg PRN Q10MIN PRN IV SEVERE PAIN 7-10 Last administered on 06/22/19at 13:43; Start 06/22/19 at 07:00; Stop 06/22/19 at 19:00; Status DC Ringer's Solution 1,000 ml @ 30 mls/hr Q24H IV Last administered on 06/22/19at 07:54; Start 06/22/19 at 07:00; Stop 06/22/19 at 18:59; Status DC Hydromorphone HCl (Dilaudid) 0.5 mg PRN Q10MIN PRN IV SEV PAIN, Second choice Last administered on 06/22/19at 14:04; Start 06/22/19 at 07:00; Stop 06/22/19 at 19:00; Status DC Prochlorperazine Edisylate (Compazine) 5 mg PACU PRN PRN IV NAUSEA, MRX1 Last administered on 06/22/19at 13:44; Start 06/22/19 at 07:00; Stop 06/22/19 at 19:00; Status DC Bupivacaine HCl/ Epinephrine Bitart (Sensorcaine-Epi 0.25%-1:151006 Mpf) 30 ml STK-MED ONCE .ROUTE ; Start 06/22/19 at 11:32; Stop 06/22/19 at 11:33; Status DC Propofol 20 ml @ As Directed STK-MED ONCE IV ; Start 06/22/19 at 11:49; Stop 06/22/19 at 11:49; Status DC Famotidine (Pepcid Vial) 20 mg STK-MED ONCE .ROUTE ; Start 06/22/19 at 11:49; Stop 06/22/19 at 11:49; Status DC Lidocaine HCl (Lidocaine Pf 2% Vial) 5 ml STK-MED ONCE .ROUTE ; Start 06/22/19 at 11:49; Stop 06/22/19 at 11:49; Status DC Ondansetron HCl (Zofran) 4 mg STK-MED ONCE .ROUTE ; Start 06/22/19 at 11:49; Stop 06/22/19 at 11:49; Status DC Dexamethasone Sodium Phosphate (Decadron) 4 mg STK-MED ONCE .ROUTE ; Start 06/22/19 at 11:49; Stop 06/22/19 at 11:49; Status DC Fentanyl Citrate (Fentanyl 2ml Vial) 100 mcg STK-MED ONCE .ROUTE ; Start 06/22/19 at 11:49; Stop 06/22/19 at 11:49; Status DC Midazolam HCl (Versed) 2 mg STK-MED ONCE .ROUTE ; Start 06/22/19 at 11:50; Stop 06/22/19 at 11:50; Status DC Ketamine HCl (Ketamine) 50 mg STK-MED ONCE .ROUTE ; Start 06/22/19 at 11:51; Stop 06/22/19 at 11:51; Status DC Fentanyl Citrate (Fentanyl 2ml Vial) 100 mcg STK-MED ONCE .ROUTE ; Start 06/22/19 at 13:11; Stop 06/22/19 at 13:11; Status DC Hydromorphone HCl (Dilaudid) 2 mg STK-MED ONCE .ROUTE ; Start 06/22/19 at 14:09; Stop 06/22/19 at 14:09; Status DC Cefazolin Sodium (Ancef) 1 gm Q8HRS IVP ; Start 06/23/19 at 14:00; Stop 06/23/19 at 14:54; Status DC Linezolid (Zyvox) 600 mg BID PO Last administered on 06/24/19at 09:01; Start 06/23/19 at 09:00 Enoxaparin Sodium (Lovenox 60mg Syringe) 60 mg Q12HR SQ Last administered on 06/24/19at 09:00; Start 06/23/19 at 21:00; Stop 06/24/19 at 11:05; Status DC Enoxaparin Sodium (Lovenox 60mg Syringe) 60 mg DAILY SQ ; Start 06/25/19 at 09:00 Active Scripts Active Reported Tramadol Hcl 50 Mg Tablet 1 Tab PO PRN Q6HRS Pantoprazole Sodium (Pantoprazole Sodium) 40 Mg Tablet.dr 1 Tab PO DAILY Vitamin D3 (Cholecalciferol (Vitamin D3)) 1,000 Unit Tablet 2,000 Unit PO DAILY Alendronate Sodium 35 Mg Tablet 1 Tab PO WEEKLY Synthroid (Levothyroxine Sodium) 88 Mcg Tablet 88 Mcg PO DAILYAC Vitals/I & O Vital Sign - Last 24 Hours 06/23/19 06/23/19 06/23/19 06/23/19 11:41 12:50 15:00 19:00 Temp 98.9 99.5 98.9 99.5 Pulse 83 71 Resp 16 16 18 18 B/P (MAP) 120/74 (89) 151/98 (115) Pulse Ox 95 95 O2 Delivery Room Air Room Air Room Air Room Air 06/23/19 06/23/19 06/23/19 06/23/19 19:05 20:00 20:49 23:00 Temp 99.2 99.2 Pulse 79 Resp 16 16 18 B/P (MAP) 134/69 (90) Pulse Ox 94 O2 Delivery Room Air Room Air Room Air Room Air 06/24/19 06/24/19 06/24/19 06/24/19 02:49 03:00 04:00 07:00 Temp 99.0 98.1 99.0 98.1 Pulse 82 85 Resp 18 18 14 16 B/P (MAP) 126/68 (87) 141/71 (94) Pulse Ox 95 95 O2 Delivery Room Air Room Air Room Air Room Air 06/24/19 06/24/19 06/24/19 06/24/19 08:00 09:14 10:14 10:29 O2 Delivery Room Air Room Air Room Air Room Air 06/24/19 10:59 O2 Delivery Room Air Intake and Output 06/23/19 06/23/19 06/24/19 15:00 23:00 07:00 Intake Total 550 ml 180 ml 550 ml Output Total 625 ml Balance 550 ml 180 ml -75 ml GUME AYALA MD Jun 24, 2019 11:30
--- NOTE | 2019-06-24 13:13 | PDOC2 ---
CONSULT Date of Consult Date of Consult DATE: 06/24/19 TIME: 13:02 Reason for Consult Reason for Consult: GAMALIEL Identification/Chief Complaint Chief Complaint No complaints currently Source Source: Chart review, Patient History of Present Illness Reason for Visit: Pt is a 58yo AAF w/ admitted on 06/19/19 with PMHx Hypothyroidism, osteoporosis, presents with right leg pain has been for 2 weeks prior to admission .She's been having difficulty walking the right leg due to the pain. No fevers or recent sick contacts. Cr was normal at hospitalization, increasing since 06/23 . She has been on IV Vanc for infection She denies any urinary complaints, No N/V/D . No CP or SOB . good appetite . No rash No Past Hx of HTN or DM .No significant FHx Past Medical History Cardiovascular: No pertinent hx Pulmonary: No pertinent hx GI: No pertinent hx Heme/Onc: No pertinent hx Hepatobiliary: No pertinent hx Psych: No pertinent hx Rheumatologic: No pertinent hx Infectious disease: No pertinent hx ENT: No pertinent hx Renal/: No pertinent hx Endocrine: Hypothyroidism Dermatology: No pertinent hx Past Surgical History Past Surgical History: , Tubal Ligation Family History Family History: Hypertension Social History No ALCOHOL: none Drugs: None Current Problem List Problem List Problems Medical Problems: (1) Cellulitis and abscess of leg Status: Acute Current Medications Current Medications Current Medications Sodium Chloride 1,000 ml @ 1,000 mls/hr 1X STAT IV Last administered on 06/19/19at 16:12; Start 06/19/19 at 15:48; Stop 06/19/19 at 16:47; Status DC Clindamycin Phosphate 50 ml @ 100 mls/hr 1X STAT IV Last administered on 06/19/19at 16:12; Start 06/19/19 at 15:48; Stop 06/19/19 at 16:17; Status DC Lidocaine HCl 20 ml 1X STAT IJ Last administered on 06/19/19at 16:28; Start 06/19/19 at 16:24; Stop 06/19/19 at 16:25; Status DC Ondansetron HCl (Zofran) 4 mg PRN Q8HRS PRN IV NAUSEA/VOMITING; Start 06/19/19 at 17:00; Stop 06/20/19 at 02:14; Status DC Fentanyl Citrate (Fentanyl 2ml Vial) 50 mcg 1X STAT IV Last administered on 06/19/19at 17:41; Start 06/19/19 at 17:13; Stop 06/19/19 at 17:15; Status DC Tramadol HCl (Ultram) 50 mg PRN Q6HRS PRN PO MILD PAIN 1-3; Start 06/19/19 at 17:45; Stop 06/20/19 at 02:13; Status DC Acetaminophen/ Hydrocodone Bitart (Lortab 5/325) 1 tab PRN Q4HRS PRN PO MODERATE PAIN Last administered on 06/24/19at 09:14; Start 06/19/19 at 17:45 Morphine Sulfate (Morphine Sulfate) 2 mg PRN Q2HR PRN IV PAIN Last administered on 06/24/19at 10:29; Start 06/19/19 at 17:45 Vitamin D (Vitamin D3) 2,000 unit DAILY PO Last administered on 06/24/19at 09:00; Start 06/20/19 at 09:00 Levothyroxine Sodium (Synthroid) 88 mcg DAILY06 PO Last administered on 06/24/19at 06:01; Start 06/20/19 at 06:00 Pantoprazole Sodium (Protonix) 40 mg DAILYAC PO Last administered on 06/24/19at 06:01; Start 06/20/19 at 07:30 Tramadol HCl (Ultram) 50 mg PRN Q6HRS PRN PO MILD PAIN 1-3; Start 06/19/19 at 20:30; Stop 06/23/19 at 08:16; Status DC Ondansetron HCl (Zofran) 4 mg PRN Q4HRS PRN IV NAUSEA/VOMITING 1ST CHOICE; Start 06/19/19 at 20:30 Zolpidem Tartrate (Ambien) 5 mg PRN QHS PRN PO INSOMNIA; Start 06/19/19 at 20:30 Acetaminophen (Tylenol) 650 mg PRN Q4HRS PRN PO TEMP OVER 100.4F OR HEADACHE Last administered on 06/23/19at 20:49; Start 06/19/19 at 20:30 Docusate Sodium (Colace) 100 mg PRN BID PRN PO CONSTIPATION 1ST CHOICE; Start 06/19/19 at 20:30 Piperacillin Sod/ Tazobactam Sod 3.375 gm/Sodium Chloride 50 ml @ 100 mls/hr Q6HRS IV Last administered on 06/23/19at 05:47; Start 06/20/19 at 00:00; Stop 06/23/19 at 08:12; Status DC Vancomycin HCl 2 gm/Sodium Chloride 500 ml @ 250 mls/hr 1X ONCE IV Last administered on 06/19/19at 21:14; Start 06/19/19 at 21:00; Stop 06/19/19 at 22:59; Status DC Vancomycin HCl (Vanco Per Pharmacy) 1 each PRN DAILY PRN MC SEE COMMENTS Last administered on 06/22/19at 20:08; Start 06/19/19 at 20:30; Stop 06/23/19 at 08:16; Status DC Enoxaparin Sodium (Lovenox 40mg Syringe) 40 mg Q24H SQ ; Start 06/19/19 at 21:00; Stop 06/19/19 at 20:40; Status DC Enoxaparin Sodium (Lovenox 40mg Syringe) 40 mg BID SQ Last administered on 06/23/19at 08:28; Start 06/19/19 at 21:00; Stop 06/23/19 at 17:56; Status DC Cyanocobalamin (Vitamin B-12) 1,000 mcg DAILY PO Last administered on 06/24/19at 09:00; Start 06/20/19 at 09:00 Vancomycin HCl 1.75 gm/Sodium Chloride 500 ml @ 250 mls/hr Q12H IV Last administered on 06/20/19at 21:03; Start 06/20/19 at 09:00; Stop 06/21/19 at 07:09; Status DC Vancomycin HCl (Vancomycin Trough Level) 1 each 1X ONCE MC ; Start 06/21/19 at 08:30; Stop 06/21/19 at 08:31; Status Cancel Lactobacillus Rhamnosus (Culturelle) 1 cap BID PO Last administered on 06/24/19at 09:00; Start 06/20/19 at 09:00 Gadoterate Meglumine (Dotarem) 10 ml 1X ONCE IVP Last administered on 06/20/19at 12:31; Start 06/20/19 at 12:45; Stop 06/20/19 at 12:46; Status DC Gadoterate Meglumine (Dotarem) 15 ml 1X ONCE IVP Last administered on 06/20/19at 12:30; Start 06/20/19 at 12:15; Stop 06/20/19 at 12:19; Status DC Vancomycin HCl 1.75 gm/Sodium Chloride 500 ml @ 250 mls/hr Q12H IV Last administered on 06/22/19at 21:28; Start 06/21/19 at 20:00; Stop 06/23/19 at 08:16; Status DC Vancomycin HCl (Vancomycin Trough Level) 1 each 1X ONCE MC Last administered on 06/22/19at 19:30; Start 06/22/19 at 19:30; Stop 06/22/19 at 19:31; Status DC Ondansetron HCl (Zofran) 4 mg PRN Q6HRS PRN IV NAUSEA/VOMITING; Start 06/22/19 at 07:00; Stop 06/22/19 at 19:00; Status DC Fentanyl Citrate (Fentanyl 2ml Vial) 25 mcg PRN Q5MIN PRN IV MILD PAIN 1-3; Start 06/22/19 at 07:00; Stop 06/22/19 at 19:00; Status DC Fentanyl Citrate (Fentanyl 2ml Vial) 50 mcg PRN Q5MIN PRN IV MODERATE TO SEVERE PAIN; Start 06/22/19 at 07:00; Stop 06/22/19 at 19:00; Status DC Morphine Sulfate (Morphine Sulfate) 1 mg PRN Q10MIN PRN IV SEVERE PAIN 7-10 Last administered on 06/22/19at 13:43; Start 06/22/19 at 07:00; Stop 06/22/19 at 19:00; Status DC Ringer's Solution 1,000 ml @ 30 mls/hr Q24H IV Last administered on 06/22/19at 07:54; Start 06/22/19 at 07:00; Stop 06/22/19 at 18:59; Status DC Hydromorphone HCl (Dilaudid) 0.5 mg PRN Q10MIN PRN IV SEV PAIN, Second choice Last administered on 06/22/19at 14:04; Start 06/22/19 at 07:00; Stop 06/22/19 at 19:00; Status DC Prochlorperazine Edisylate (Compazine) 5 mg PACU PRN PRN IV NAUSEA, MRX1 Last administered on 06/22/19at 13:44; Start 06/22/19 at 07:00; Stop 06/22/19 at 19:00; Status DC Bupivacaine HCl/ Epinephrine Bitart (Sensorcaine-Epi 0.25%-1:246600 Mpf) 30 ml STK-MED ONCE .ROUTE ; Start 06/22/19 at 11:32; Stop 06/22/19 at 11:33; Status DC Propofol 20 ml @ As Directed STK-MED ONCE IV ; Start 06/22/19 at 11:49; Stop 06/22/19 at 11:49; Status DC Famotidine (Pepcid Vial) 20 mg STK-MED ONCE .ROUTE ; Start 06/22/19 at 11:49; Stop 06/22/19 at 11:49; Status DC Lidocaine HCl (Lidocaine Pf 2% Vial) 5 ml STK-MED ONCE .ROUTE ; Start 06/22/19 at 11:49; Stop 06/22/19 at 11:49; Status DC Ondansetron HCl (Zofran) 4 mg STK-MED ONCE .ROUTE ; Start 06/22/19 at 11:49; Stop 06/22/19 at 11:49; Status DC Dexamethasone Sodium Phosphate (Decadron) 4 mg STK-MED ONCE .ROUTE ; Start 06/22/19 at 11:49; Stop 06/22/19 at 11:49; Status DC Fentanyl Citrate (Fentanyl 2ml Vial) 100 mcg STK-MED ONCE .ROUTE ; Start 06/22/19 at 11:49; Stop 06/22/19 at 11:49; Status DC Midazolam HCl (Versed) 2 mg STK-MED ONCE .ROUTE ; Start 06/22/19 at 11:50; Stop 06/22/19 at 11:50; Status DC Ketamine HCl (Ketamine) 50 mg STK-MED ONCE .ROUTE ; Start 06/22/19 at 11:51; Stop 06/22/19 at 11:51; Status DC Fentanyl Citrate (Fentanyl 2ml Vial) 100 mcg STK-MED ONCE .ROUTE ; Start 06/22/19 at 13:11; Stop 06/22/19 at 13:11; Status DC Hydromorphone HCl (Dilaudid) 2 mg STK-MED ONCE .ROUTE ; Start 06/22/19 at 14:09; Stop 06/22/19 at 14:09; Status DC Cefazolin Sodium (Ancef) 1 gm Q8HRS IVP ; Start 06/23/19 at 14:00; Stop 06/23/19 at 14:54; Status DC Linezolid (Zyvox) 600 mg BID PO Last administered on 06/24/19at 09:01; Start 06/23/19 at 09:00 Enoxaparin Sodium (Lovenox 60mg Syringe) 60 mg Q12HR SQ Last administered on 06/24/19at 09:00; Start 06/23/19 at 21:00; Stop 06/24/19 at 11:05; Status DC Enoxaparin Sodium (Lovenox 60mg Syringe) 60 mg DAILY SQ ; Start 06/25/19 at 09:00 Sodium Chloride 1,000 ml @ 100 mls/hr 1X ONCE IV ; Start 06/24/19 at 13:30; Stop 06/24/19 at 23:29 Active Scripts Active Reported Tramadol Hcl 50 Mg Tablet 1 Tab PO PRN Q6HRS Pantoprazole Sodium (Pantoprazole Sodium) 40 Mg Tablet.dr 1 Tab PO DAILY Vitamin D3 (Cholecalciferol (Vitamin D3)) 1,000 Unit Tablet 2,000 Unit PO DAILY Alendronate Sodium 35 Mg Tablet 1 Tab PO WEEKLY Synthroid (Levothyroxine Sodium) 88 Mcg Tablet 88 Mcg PO DAILYAC Allergies Allergies: Coded Allergies: No Known Drug Allergies (Unverified , 03/13/16) ROS Review of System Per HPI Physical Exam Physical Exam Gen NAD HEENT: Oral pharynx moist NECK: Supple. LUNGS: Clear. HEART: S1, S2. ABDOMEN: Soft, nontender, EXTREMITIES: Without clubbing, cyanosis. Per ID note SKIN: No rash NEUROLOGIC: grossly normal - no SP or CVA tenderness, No ribera Vital Signs Vital Signs Date Time Temp Pulse Resp B/P (MAP) Pulse Ox O2 Delivery O2 Flow Rate FiO2 06/24/19 10:59 Room Air 06/24/19 07:00 98.1 85 16 141/71 (94 95 98.1 Assessment & Plan GAMALIEL- ATN/Vs AIN ? 2/2 Vanc Normal renal function at baseline , Cr increasing since 06/23 , Cr 1.2-->2.5 ; BUN normal Check UA, Renal US Supportive care, IVF , strict i/o, Avoid nephrotoxins, Monitor Hypernatremia - mild Right leg deep abscesses- S/p Incision and drainage, Was on vanc, dced now S/p Dexamethasone 06/22 RLE cellulitis Leg nodules - ? Erythema Nodsum - abscess- per ID Discussed A/P with Pt Labs Labs Laboratory Tests Test 06/22/19 19:30 06/23/19 04:05 06/24/19 04:25 Vancomycin Level Trough 15.1 mcg/mL (10.0-20.0) Vancomycin Last Dose Date 06/22/19 Vancomycin Last Dose Time 0800 White Blood Count 7.3 x10^3/uL (4.0-11.0) Red Blood Count 2.27 x10^6/uL (3.50-5.40) Hemoglobin 10.7 g/dL (12.0-15.5) Hematocrit 30.9 % (36.0-47.0) Mean Corpuscular Volume 137 fL (79-100) Mean Corpuscular Hemoglobin 47 pg (25-35) Mean Corpuscular Hemoglobin Concent 35 g/dL (31-37) Red Cell Distribution Width 15.9 % (11.5-14.5) Platelet Count 298 x10^3/uL (140-400) Neutrophils (%) (Auto) 76 % (31-73) Lymphocytes (%) (Auto) 13 % (24-48) Monocytes (%) (Auto) 11 % (0-9) Eosinophils (%) (Auto) 0 % (0-3) Basophils (%) (Auto) 0 % (0-3) Neutrophils # (Auto) 5.5 x10^3/uL (1.8-7.7) Lymphocytes # (Auto) 0.9 x10^3/uL (1.0-4.8) Monocytes # (Auto) 0.8 x10^3/uL (0.0-1.1) Eosinophils # (Auto) 0.0 x10^3/uL (0.0-0.7) Basophils # (Auto) 0.0 x10^3/uL (0.0-0.2) Sodium Level 143 mmol/L (136-145) 147 mmol/L (136-145) Potassium Level 3.9 mmol/L (3.5-5.1) 3.5 mmol/L (3.5-5.1) Chloride Level 107 mmol/L (98-107) 112 mmol/L (98-107) Carbon Dioxide Level 27 mmol/L (21-32) 25 mmol/L (21-32) Anion Gap 9 (6-14) 10 (6-14) Blood Urea Nitrogen 9 mg/dL (7-20) 12 mg/dL (7-20) Creatinine 1.2 mg/dL (0.6-1.0) 2.5 mg/dL (0.6-1.0) Estimated GFR (Cockcroft-Gault) 55.4 23.8 Glucose Level 95 mg/dL (70-99) 135 mg/dL (70-99) Calcium Level 9.2 mg/dL (8.5-10.1) 9.1 mg/dL (8.5-10.1) Laboratory Tests Test 06/24/19 04:25 Sodium Level 147 mmol/L (136-145) Potassium Level 3.5 mmol/L (3.5-5.1) Chloride Level 112 mmol/L (98-107) Carbon Dioxide Level 25 mmol/L (21-32) Anion Gap 10 (6-14) Blood Urea Nitrogen 12 mg/dL (7-20) Creatinine 2.5 mg/dL (0.6-1.0) Estimated GFR (Cockcroft-Gault) 23.8 Glucose Level 135 mg/dL (70-99) Calcium Level 9.1 mg/dL (8.5-10.1) Review All relevant outside records, renal labs, imaging studies, telemetry/EKG's were reviewed. SHAHRZAD GOMEZ MD Jun 24, 2019 13:13
[2019-06-24] MEDS ORDERED: IV 1/2 NORMAL SALINE 1,000 ML IV ONE (13:30)
--- NOTE | 2019-06-24 14:26 | PDOC ---
PROGRESS NOTES Subjective Subjective She feels better than preoperatively but still not fully well. We discussed her elevated creatinine Objective Vital Signs Vital Signs Date Time Temp Pulse Resp B/P (MAP) Pulse Ox O2 Delivery O2 Flow Rate FiO2 06/24/19 11:00 98.1 62 18 134/85 (101) 100 Room Air 98.1 06/22/19 18:00 4.0 Physical Exam Dressing was intact with slight drainage. She has been undergoing wound care with her partial removal of the packing daily as instructed. Labs Laboratory Tests Test 06/22/19 19:30 06/23/19 04:05 06/24/19 04:25 Vancomycin Level Trough 15.1 mcg/mL (10.0-20.0) Vancomycin Last Dose Date 06/22/19 Vancomycin Last Dose Time 0800 White Blood Count 7.3 x10^3/uL (4.0-11.0) Red Blood Count 2.27 x10^6/uL (3.50-5.40) Hemoglobin 10.7 g/dL (12.0-15.5) Hematocrit 30.9 % (36.0-47.0) Mean Corpuscular Volume 137 fL (79-100) Mean Corpuscular Hemoglobin 47 pg (25-35) Mean Corpuscular Hemoglobin Concent 35 g/dL (31-37) Red Cell Distribution Width 15.9 % (11.5-14.5) Platelet Count 298 x10^3/uL (140-400) Neutrophils (%) (Auto) 76 % (31-73) Lymphocytes (%) (Auto) 13 % (24-48) Monocytes (%) (Auto) 11 % (0-9) Eosinophils (%) (Auto) 0 % (0-3) Basophils (%) (Auto) 0 % (0-3) Neutrophils # (Auto) 5.5 x10^3/uL (1.8-7.7) Lymphocytes # (Auto) 0.9 x10^3/uL (1.0-4.8) Monocytes # (Auto) 0.8 x10^3/uL (0.0-1.1) Eosinophils # (Auto) 0.0 x10^3/uL (0.0-0.7) Basophils # (Auto) 0.0 x10^3/uL (0.0-0.2) Sodium Level 143 mmol/L (136-145) 147 mmol/L (136-145) Potassium Level 3.9 mmol/L (3.5-5.1) 3.5 mmol/L (3.5-5.1) Chloride Level 107 mmol/L (98-107) 112 mmol/L (98-107) Carbon Dioxide Level 27 mmol/L (21-32) 25 mmol/L (21-32) Anion Gap 9 (6-14) 10 (6-14) Blood Urea Nitrogen 9 mg/dL (7-20) 12 mg/dL (7-20) Creatinine 1.2 mg/dL (0.6-1.0) 2.5 mg/dL (0.6-1.0) Estimated GFR (Cockcroft-Gault) 55.4 23.8 Glucose Level 95 mg/dL (70-99) 135 mg/dL (70-99) Calcium Level 9.2 mg/dL (8.5-10.1) 9.1 mg/dL (8.5-10.1) Laboratory Tests Test 06/24/19 04:25 Sodium Level 147 mmol/L (136-145) Potassium Level 3.5 mmol/L (3.5-5.1) Chloride Level 112 mmol/L (98-107) Carbon Dioxide Level 25 mmol/L (21-32) Anion Gap 10 (6-14) Blood Urea Nitrogen 12 mg/dL (7-20) Creatinine 2.5 mg/dL (0.6-1.0) Estimated GFR (Cockcroft-Gault) 23.8 Glucose Level 135 mg/dL (70-99) Calcium Level 9.1 mg/dL (8.5-10.1) Assessment Assessment Status post incision and drainage multiple leg abscesses Plan Plan of Care I encouraged oral fluids to help her kidneys. We discussed risk factors for elevated creatinine. Continue IV antibiotics and I agree with holding vancomycin. From the leg wounds she is stable, but she certainly is to stay in the hospital to follow her kidney function. MAIKOL GARZA MD Jun 24, 2019 14:26
[2019-06-24 15:00] VITALS: BP 162/76
[2019-06-24 15:46] LABS: BILIRUBIN,URINE NEGATIVE (NEG); CLARITY,URINE CLEAR; COLOR,URINE YELLOW; NITRITE,URINE NEGATIVE (NEG); PROTEIN,URINE NEGATIVE (NEG-TRACE); UROBILINOGEN,URINE 0.2 mg/dL (0.2 mg/dL)
--- NOTE | 2019-06-24 16:00 | RAD ---
Examination: RENAL COMPLETE BILATERAL History: Acute renal insufficiency Comparison/Correlation: None Findings: Right kidney measures 13.4 cm x 6.6 cm x 5 cm left kidney measures 12.8 cm x 6.3 cm x 6.6. No hydronephrosis or nephrolithiasis. Renal contours and cortical echotexture are normal. Urinary bladder is unremarkable. Impression: Normal renal ultrasound exam. Electronically signed by: Jamie Santos MD (06/24/2019 3:57 PM) [facility]
[2019-06-24 16:06] LABS: BACTERIA,URINE 0 /HPF (0-FEW); RBC,URINE 0 /HPF (0-2); SQUAMOUS EPITHELIAL CELL,UR OCC /LPF; WBC,URINE RARE /HPF (0-4)
[2019-06-24 19:00] VITALS: BP 178/94
[2019-06-24 23:00] VITALS: BP 155/85
[2019-06-25 03:00] VITALS: BP 145/87
[2019-06-25 05:03] LABS: BASO # 0.1 x10^3/uL (0.0-0.2); BASO % 1 % (0-3); EOS # 0.1 x10^3/uL (0.0-0.7); EOS % 1 % (0-3); HEMATOCRIT 29.6 % (36.0-47.0); HEMOGLOBIN 10.3 g/dL (12.0-15.5); LYMPH # 1.4 x10^3/uL (1.0-4.8); LYMPH % 14 % (24-48); MEAN CORPUSCULAR HEMOGLOBIN 46 pg (25-35); MEAN CORPUSCULAR HGB CONC 35 g/dL (31-37); MEAN CORPUSCULAR VOLUME 133 fL (79-100); MONO # 1.2 x10^3/uL (0.0-1.1); MONO % 12 % (0-9); NEUT # 6.8 x10^3/uL (1.8-7.7); NEUT % 72 % (31-73); PLATELET COUNT 287 x10^3/uL (140-400); RED BLOOD COUNT 2.23 x10^6/uL (3.50-5.40); RED CELL DISTRIBUTION WIDTH 16.4 % (11.5-14.5); WHITE BLOOD COUNT 9.5 x10^3/uL (4.0-11.0)
[2019-06-25 05:24] LABS: ALBUMIN 2.9 g/dL (3.4-5.0); CALCIUM 9.7 mg/dL (8.5-10.1); CREATININE 2.6 mg/dL (0.6-1.0); GFR 22.7; PHOSPHORUS 4.8 mg/dL (2.6-4.7); POTASSIUM 3.3 mmol/L (3.5-5.1)
[2019-06-25] MEDS: LEVOTHYROXINE 88 MCG TABLET PO SCH (06:23)
--- NOTE | 2019-06-25 06:30 | PDOC ---
Infectious Disease Note Subjective Subjective Better overall ambulated without walker and ankle feels better after ambulation Hungry urinating well and a lot No F/C/S/N/V/D/rash. + Flatus ROS ROS o/w neg Vital Sign Vital Signs Vital Signs Date Time Temp Pulse Resp B/P (MAP) Pulse Ox O2 Delivery O2 Flow Rate FiO2 06/25/19 03:00 99.3 90 18 145/87 (106) 93 Nasal Cannula 4.0 99.3 Physical Exam PHYSICAL EXAM CONSTITUTIONAL: She is pleasant, cooperative. She is in no acute distress. She is sitting upright in bed. looks well and smiling HEENT: Pupils are equal and reactive. She had normal conjunctivae. Oral cavity, pharynx was clear. NECK: Supple. Good range of motion. No JVD. LUNGS: Clear. HEART: S1, S2. ABDOMEN: Soft, nontender, no guarding or rebound. EXTREMITIES: Without clubbing, cyanosis. She has trace + lower extremity edema less Wounds dressed today Previous 06/24 on the lateral aspect she has a small sized area without gross drainage. She has three discrete lesions, one was up in the middle third of her tibia that is packed with min erythema and still some ternderness. in the anterior medial aspect now less red and packed - looks better and the one just above her ankle is much better and packed. They are SKIN: Without generalized signs of rash. NEUROLOGIC: She is nonfocal. PSYCHIATRIC: Affect is appropriate. Labs Lab Laboratory Tests Test 06/24/19 15:20 06/25/19 04:35 Urine Collection Type Unknown Urine Color Yellow Urine Clarity Clear Urine pH 6.0 Urine Specific [place] <=1.005 Urine Protein Negative mg/dL (NEG-TRACE) Urine Glucose (UA) Negative mg/dL (NEG) Urine Ketones (Stick) Negative mg/dL (NEG) Urine Blood Trace (NEG) Urine Nitrite Negative (NEG) Urine Bilirubin Negative (NEG) Urine Urobilinogen Dipstick 0.2 mg/dL (0.2 mg/dL) Urine Leukocyte Esterase Trace (NEG) Urine RBC 0 /HPF (0-2) Urine WBC Rare /HPF (0-4) Urine Squamous Epithelial Cells Occ /LPF Urine Bacteria 0 /HPF (0-FEW) Urine Eosinophils Eos not observed White Blood Count 9.5 x10^3/uL (4.0-11.0) Red Blood Count 2.23 x10^6/uL (3.50-5.40) Hemoglobin 10.3 g/dL (12.0-15.5) Hematocrit 29.6 % (36.0-47.0) Mean Corpuscular Volume 133 fL (79-100) Mean Corpuscular Hemoglobin 46 pg (25-35) Mean Corpuscular Hemoglobin Concent 35 g/dL (31-37) Red Cell Distribution Width 16.4 % (11.5-14.5) Platelet Count 287 x10^3/uL (140-400) Neutrophils (%) (Auto) 72 % (31-73) Lymphocytes (%) (Auto) 14 % (24-48) Monocytes (%) (Auto) 12 % (0-9) Eosinophils (%) (Auto) 1 % (0-3) Basophils (%) (Auto) 1 % (0-3) Neutrophils # (Auto) 6.8 x10^3/uL (1.8-7.7) Lymphocytes # (Auto) 1.4 x10^3/uL (1.0-4.8) Monocytes # (Auto) 1.2 x10^3/uL (0.0-1.1) Eosinophils # (Auto) 0.1 x10^3/uL (0.0-0.7) Basophils # (Auto) 0.1 x10^3/uL (0.0-0.2) Sodium Level 144 mmol/L (136-145) Potassium Level 3.3 mmol/L (3.5-5.1) Chloride Level 108 mmol/L (98-107) Carbon Dioxide Level 25 mmol/L (21-32) Anion Gap 11 (6-14) Blood Urea Nitrogen 14 mg/dL (7-20) Creatinine 2.6 mg/dL (0.6-1.0) Estimated GFR (Cockcroft-Gault) 22.7 Glucose Level 113 mg/dL (70-99) Calcium Level 9.7 mg/dL (8.5-10.1) Phosphorus Level 4.8 mg/dL (2.6-4.7) Creatine Kinase 94 U/L (26-192) Albumin 2.9 g/dL (3.4-5.0) Micro MRI- 06/20 IMPRESSION: 1. Cellulitis along the medial aspect of the lower leg, ankle and extending along the medial foot with a superimposed small developing abscess measuring 1.2 x 0.5 x 1.8 cm. Likely a tiny amount of gas within this collection. Note is made that this collection does not exhibit confluent fluid signal internally and may be difficult to drain at this time. No fluid collection seen elsewhere. No findings of osteomyelitis. 2. Findings in keeping with mild plantar fasciitis. 3. Mild distal Achilles tendinosis. 4. Lobulated ganglion cyst emanating from the posterior aspect of ankle from the lateral gutter measuring up to 2 cm in maximum dimension. Microbiology 06/19/19 Blood Culture - Preliminary, Resulted NO GROWTH AFTER 1 DAY Objective Assessment MRSA from 06/19 and gram stain 06/22 + staph aureus GAMALIEL- stable today - Urine for EOS - neg. Making appropriate urine S/p Incision and drainage, right leg deep abscesses CPT 25442 (x3 locations) 06/22 no bone - better RLE cellulitis RLE abscess s/p I and D in ER 06/19 MRI reviewed - small fluid collection - no Osteo -cults neg so far Leukocytosis - better Leg nodules - ? Erythema Nodsum - abscess Plan Plan of Care Appreciate Renal consult S/p Dexamethasone 06/22 Discont Vanc 06/23 with mild Cr increase and dosed po Zyvox - d/c Tramadol D/c Zosyn tapered Cefazolin for staph aureus 06/23 but d/c'd 06/23 after MRSA returned 06/23 afternoon F/u labs in am and cults Wound care per wound care and Ortho D/w Nursing CHELITA JHAVERI MD Jun 25, 2019 06:30
[2019-06-25 07:00] VITALS: BP 164/84
[2019-06-25] MEDS: CYANOCOBALAMIN (VITAMIN B-12) 1,000 MCG TABLET. PO SCH (08:10)
[2019-06-25] MEDS: PANTOPRAZOLE 40 MG TABLET.DR. PO SCH (08:10)
[2019-06-25] MEDS: LACTOBACILLUS RHAMNOSUS GG 1 CAPSULE. PO SCH ×2 (08:10→20:53)
[2019-06-25] MEDS: CHOLECALCIFEROL (VITAMIN D3) 1,000 UNIT TABLET PO SCH (08:10)
[2019-06-25] MEDS: HYDROcodone/APAP 5/325MG 1 TAB TABLET PO PRN (08:10)
[2019-06-25] MEDS: LINEZOLID 600 MG TABLET PO SCH ×2 (08:10→20:53)
[2019-06-25] MEDS: MORPHINE SULFATE 2 MG/ML VIAL. IV PRN (09:53)
--- NOTE | 2019-06-25 10:11 | PDOC ---
PROGRESS NOTES Chief Complaint Chief Complaint Impression and Plan: Right leg abscess - near right medial malleolus, s/p I&D and culture with blood cultures.mrsa isolated No evidence of deep vein thrombosis within the right lower extremity. Right leg cellulitis - spares the foot. Red raised lesions - erythema nodosum in 2 locations. Will see how she responds to antibiotics (no history of GI issues or pulmonary issues, no sarcoid) Leukocytosis - with tachycardia and cellulitis // sepsis, POA, given antibiotics and fluids. Macrocytosis with anemia - B12 levels greater than 2000 Hypothyroidism - will cont meds Vitamin D insufficiency - will cont meds Elevated fasting glucose - follow results of HBA1c. Unable to walk - 2/2 RLE pain, will have wound care to see, pain control, orthopedic consultation Methicillin - resistant Staphylococcus aureus General diet PPX - lovenox FULL CODE Dispo - inpatient for right leg cellulitis and abscess failing outpatient treatment D/c Zosyn to taper and begin Cefazolin for now follow up on cultures id following 28 min pt exam, chart review, > 50% of time spent with exam, chart review, pt care coordination Operative Note Operative Note Operative Note Date of Procedure: June 22, 2019 Pre-Op Diagnosis: Furuncle of right lower limb (multiple, there are three separate furuncles) L02.425 Post-Op Diagnosis: Same Procedure: Incision and drainage, right leg deep abscesses CPT 44272 (x3 locations) Surgeon: Brady Reyes MD Anesthesia: General EBL: 10 mL Specimens Obtained: Swab cultures for aerobic and anaerobic of the proximal abscess, specimen cup for aerobic and anaerobic of the middle abscess. Complications: none Drains: Iodoform packing Findings: Three pururent abscesses right lower leg Indications for Procedure: The patient is a 58-year-old woman who presented with multiple abscesses in the right lower leg. She had drainage of one of them in the emergency room, but still has pain and drainage at that location, and it was very painful for her. She has 2 other abscesses which have not yet been drained. I recommended surgical incision and drainage and possible packing open. SPEC #: [id number] IVETH: 06/19/19 STATUS: RES REQ #: [id number] RECD: 06/19/[address] [facility] DR: TEMITOPE MACKEY MD SOURCE: ANKLE ENTR: 06/19/[address]: MICHAEL LARRY MD [facility]: RIGHT ORDERED: ANAER/AEROB/GS COMMENTS: Specimen Comment: Test(s) Aerobic Culture called to SORAYA on 06/23/2019 at 15:22 EST Procedure Result ANAEROBIC-AEROBIC CULTURE Preliminary Preliminary report ANAEROBIC RES 1 Preliminary Comment No anaerobes recovered in 48 hours. AEROBIC CULT Final Preliminary report Final report METHCILLIN RESISTANT STAPH AUREUS ISOLATED FROM ANKLE WOUND. CALLED TO FELICIANO ROSENBERG RN ON 4N AT 14:30 ON 06/23/19 DW MT * This is a corrected result. * A prior result that was reported as final has been changed. AEROBIC RES 1 Final Staphylococcus aureus Comment 1+ Methicillin - resistant Staphylococcus aureus 1+ Based on resistance to oxacillin this isolate would be resistant to all currently available beta-lactam antimicrobial agents, with the exception of the newer cephalosporins with anti-MRSA activity, such as Ceftaroline This isolate does not demonstrate inducible clindamycin resistance in vitro by D test. ANTIMICROBIAL SUSCEPTIBILITY Final Comment History of Present Illness History of Present Illness Feeling better compared to admission. The patient has less discomfort over the affected area, no fever or chills mrsa pos culture noted Vitals Vitals Vital Signs Date Time Temp Pulse Resp B/P (MAP) Pulse Ox O2 Delivery O2 Flow Rate FiO2 06/25/19 09:53 Room Air 06/25/19 07:00 97.8 90 16 164/84 (110) 95 97.8 06/25/19 03:00 4.0 Physical Exam Physical Exam CONSTITUTIONAL: She is pleasant, cooperative. She is in no acute distress. She is sitting upright in bed. looks well and smiling HEENT: Pupils are equal and reactive. She had normal conjunctivae. Oral cavity, pharynx was clear. NECK: Supple. Good range of motion. No JVD. LUNGS: Clear. HEART: S1, S2. ABDOMEN: Soft, nontender, no guarding or rebound. EXTREMITIES: Without clubbing, cyanosis. She has trace + lower extremity edema less Wounds dressed today Previous 06/24 on the lateral aspect she has a small sized area without gross drainage. She has three discrete lesions, one was up in the middle third of her tibia that is packed with min erythema and still some ternderness. in the anterior medial aspect now less red and packed - looks better and the one just above her ankle is much better and packed. They are SKIN: Without generalized signs of rash. NEUROLOGIC: She is nonfocal. PSYCHIATRIC: Affect is appropriate. General: Alert, Cooperative Heart: Regular rate Abdomen: Soft Extremities: Other (she has a dressing over the right ankle medially, with small abscess superficially and some packing. She has 2 more discrete abscesses, one in the bathroom mid tibia and one more proximally, both of which seem superficial, quite tender, erythematous, and slightly fluctuant. She has a good dorsalis pedis pulse and normal sensation in the foot. Normal neurovascular function distally. No evidence of compartment syndrome. There is mild cellulitis of the leg, mostly around the areas of the abscesses. I examined the posterior ankle, where she has a ganglion on the imaging, and this is asymptomatic and not palpable.) Skin: Other (abscess lesions as above.) Labs LABS [facility]: RIGHT CHELITA JHAVERI MD, JOHN N MD ORDERED: ANAER/AEROB/GS COMMENTS: RIGHT CALF, MIDDLE ABSCESS -- Procedure Result ANAEROBIC-AEROBIC CULTURE PENDING ANAEROBIC RES 1 PENDING AEROBIC CULT Preliminary Preliminary report AEROBIC RES 1 Preliminary Staphylococcus aureus 4+ GRAM STAIN Final Final report GRAM STAIN RES 1 Final Comment Many white blood cells. GRAM STAIN RES 2 Final Comment Few gram positive cocci in pairs, chains, and clusters Performed at: - [facility], [place], [place] [id number] Building Official: EYAD Chambers MD, Phone: [phone] Laboratory Tests Test 06/24/19 15:20 06/25/19 04:35 Urine Collection Type Unknown Urine Color Yellow Urine Clarity Clear Urine pH 6.0 Urine Specific [place] <=1.005 Urine Protein Negative mg/dL (NEG-TRACE) Urine Glucose (UA) Negative mg/dL (NEG) Urine Ketones (Stick) Negative mg/dL (NEG) Urine Blood Trace (NEG) Urine Nitrite Negative (NEG) Urine Bilirubin Negative (NEG) Urine Urobilinogen Dipstick 0.2 mg/dL (0.2 mg/dL) Urine Leukocyte Esterase Trace (NEG) Urine RBC 0 /HPF (0-2) Urine WBC Rare /HPF (0-4) Urine Squamous Epithelial Cells Occ /LPF Urine Bacteria 0 /HPF (0-FEW) Urine Eosinophils Eos not observed White Blood Count 9.5 x10^3/uL (4.0-11.0) Red Blood Count 2.23 x10^6/uL (3.50-5.40) Hemoglobin 10.3 g/dL (12.0-15.5) Hematocrit 29.6 % (36.0-47.0) Mean Corpuscular Volume 133 fL (79-100) Mean Corpuscular Hemoglobin 46 pg (25-35) Mean Corpuscular Hemoglobin Concent 35 g/dL (31-37) Red Cell Distribution Width 16.4 % (11.5-14.5) Platelet Count 287 x10^3/uL (140-400) Neutrophils (%) (Auto) 72 % (31-73) Lymphocytes (%) (Auto) 14 % (24-48) Monocytes (%) (Auto) 12 % (0-9) Eosinophils (%) (Auto) 1 % (0-3) Basophils (%) (Auto) 1 % (0-3) Neutrophils # (Auto) 6.8 x10^3/uL (1.8-7.7) Lymphocytes # (Auto) 1.4 x10^3/uL (1.0-4.8) Monocytes # (Auto) 1.2 x10^3/uL (0.0-1.1) Eosinophils # (Auto) 0.1 x10^3/uL (0.0-0.7) Basophils # (Auto) 0.1 x10^3/uL (0.0-0.2) Sodium Level 144 mmol/L (136-145) Potassium Level 3.3 mmol/L (3.5-5.1) Chloride Level 108 mmol/L (98-107) Carbon Dioxide Level 25 mmol/L (21-32) Anion Gap 11 (6-14) Blood Urea Nitrogen 14 mg/dL (7-20) Creatinine 2.6 mg/dL (0.6-1.0) Estimated GFR (Cockcroft-Gault) 22.7 Glucose Level 113 mg/dL (70-99) Calcium Level 9.7 mg/dL (8.5-10.1) Phosphorus Level 4.8 mg/dL (2.6-4.7) Creatine Kinase 94 U/L (26-192) Albumin 2.9 g/dL (3.4-5.0) Assessment and Plan Assessmemt and Plan Problems Medical Problems: (1) Cellulitis and abscess of leg Status: Acute Comment Review of Relevant I have reviewed the following items bijan (where applicable) has been applied. Labs Laboratory Tests Test 06/24/19 04:25 06/24/19 15:20 06/25/19 04:35 Sodium Level 147 mmol/L (136-145) 144 mmol/L (136-145) Potassium Level 3.5 mmol/L (3.5-5.1) 3.3 mmol/L (3.5-5.1) Chloride Level 112 mmol/L (98-107) 108 mmol/L (98-107) Carbon Dioxide Level 25 mmol/L (21-32) 25 mmol/L (21-32) Anion Gap 10 (6-14) 11 (6-14) Blood Urea Nitrogen 12 mg/dL (7-20) 14 mg/dL (7-20) Creatinine 2.5 mg/dL (0.6-1.0) 2.6 mg/dL (0.6-1.0) Estimated GFR (Cockcroft-Gault) 23.8 22.7 Glucose Level 135 mg/dL (70-99) 113 mg/dL (70-99) Calcium Level 9.1 mg/dL (8.5-10.1) 9.7 mg/dL (8.5-10.1) Urine Collection Type Unknown Urine Color Yellow Urine Clarity Clear Urine pH 6.0 Urine Specific [place] <=1.005 Urine Protein Negative mg/dL (NEG-TRACE) Urine Glucose (UA) Negative mg/dL (NEG) Urine Ketones (Stick) Negative mg/dL (NEG) Urine Blood Trace (NEG) Urine Nitrite Negative (NEG) Urine Bilirubin Negative (NEG) Urine Urobilinogen Dipstick 0.2 mg/dL (0.2 mg/dL) Urine Leukocyte Esterase Trace (NEG) Urine RBC 0 /HPF (0-2) Urine WBC Rare /HPF (0-4) Urine Squamous Epithelial Cells Occ /LPF Urine Bacteria 0 /HPF (0-FEW) Urine Eosinophils Eos not observed White Blood Count 9.5 x10^3/uL (4.0-11.0) Red Blood Count 2.23 x10^6/uL (3.50-5.40) Hemoglobin 10.3 g/dL (12.0-15.5) Hematocrit 29.6 % (36.0-47.0) Mean Corpuscular Volume 133 fL (79-100) Mean Corpuscular Hemoglobin 46 pg (25-35) Mean Corpuscular Hemoglobin Concent 35 g/dL (31-37) Red Cell Distribution Width 16.4 % (11.5-14.5) Platelet Count 287 x10^3/uL (140-400) Neutrophils (%) (Auto) 72 % (31-73) Lymphocytes (%) (Auto) 14 % (24-48) Monocytes (%) (Auto) 12 % (0-9) Eosinophils (%) (Auto) 1 % (0-3) Basophils (%) (Auto) 1 % (0-3) Neutrophils # (Auto) 6.8 x10^3/uL (1.8-7.7) Lymphocytes # (Auto) 1.4 x10^3/uL (1.0-4.8) Monocytes # (Auto) 1.2 x10^3/uL (0.0-1.1) Eosinophils # (Auto) 0.1 x10^3/uL (0.0-0.7) Basophils # (Auto) 0.1 x10^3/uL (0.0-0.2) Phosphorus Level 4.8 mg/dL (2.6-4.7) Creatine Kinase 94 U/L (26-192) Albumin 2.9 g/dL (3.4-5.0) Laboratory Tests Test 06/24/19 15:20 06/25/19 04:35 Urine Collection Type Unknown Urine Color Yellow Urine Clarity Clear Urine pH 6.0 Urine Specific [place] <=1.005 Urine Protein Negative mg/dL (NEG-TRACE) Urine Glucose (UA) Negative mg/dL (NEG) Urine Ketones (Stick) Negative mg/dL (NEG) Urine Blood Trace (NEG) Urine Nitrite Negative (NEG) Urine Bilirubin Negative (NEG) Urine Urobilinogen Dipstick 0.2 mg/dL (0.2 mg/dL) Urine Leukocyte Esterase Trace (NEG) Urine RBC 0 /HPF (0-2) Urine WBC Rare /HPF (0-4) Urine Squamous Epithelial Cells Occ /LPF Urine Bacteria 0 /HPF (0-FEW) Urine Eosinophils Eos not observed White Blood Count 9.5 x10^3/uL (4.0-11.0) Red Blood Count 2.23 x10^6/uL (3.50-5.40) Hemoglobin 10.3 g/dL (12.0-15.5) Hematocrit 29.6 % (36.0-47.0) Mean Corpuscular Volume 133 fL (79-100) Mean Corpuscular Hemoglobin 46 pg (25-35) Mean Corpuscular Hemoglobin Concent 35 g/dL (31-37) Red Cell Distribution Width 16.4 % (11.5-14.5) Platelet Count 287 x10^3/uL (140-400) Neutrophils (%) (Auto) 72 % (31-73) Lymphocytes (%) (Auto) 14 % (24-48) Monocytes (%) (Auto) 12 % (0-9) Eosinophils (%) (Auto) 1 % (0-3) Basophils (%) (Auto) 1 % (0-3) Neutrophils # (Auto) 6.8 x10^3/uL (1.8-7.7) Lymphocytes # (Auto) 1.4 x10^3/uL (1.0-4.8) Monocytes # (Auto) 1.2 x10^3/uL (0.0-1.1) Eosinophils # (Auto) 0.1 x10^3/uL (0.0-0.7) Basophils # (Auto) 0.1 x10^3/uL (0.0-0.2) Sodium Level 144 mmol/L (136-145) Potassium Level 3.3 mmol/L (3.5-5.1) Chloride Level 108 mmol/L (98-107) Carbon Dioxide Level 25 mmol/L (21-32) Anion Gap 11 (6-14) Blood Urea Nitrogen 14 mg/dL (7-20) Creatinine 2.6 mg/dL (0.6-1.0) Estimated GFR (Cockcroft-Gault) 22.7 Glucose Level 113 mg/dL (70-99) Calcium Level 9.7 mg/dL (8.5-10.1) Phosphorus Level 4.8 mg/dL (2.6-4.7) Creatine Kinase 94 U/L (26-192) Albumin 2.9 g/dL (3.4-5.0) Microbiology 06/22/19 Anaerobic/Aerobic Culture, Resulted Pending 06/22/19 Anaerobic Culture Result 1 (CLAUDIA), Resulted Pending 06/22/19 Aerobic Culture - Preliminary, Resulted 06/22/19 Aerobic Culture Result 1 (CLAUDIA) - Preliminary, Resulted 06/22/19 Gram Stain - Final, Resulted 06/22/19 Gram Stain Result 1 (CLAUDIA) - Final, Resulted 06/22/19 Gram Stain Result 2 (CLAUDIA) - Final, Resulted 06/19/19 Blood Culture - Final, Complete NO GROWTH AFTER 5 DAYS Medications Current Medications Sodium Chloride 1,000 ml @ 1,000 mls/hr 1X STAT IV Last administered on 06/19/19at 16:12; Start 06/19/19 at 15:48; Stop 06/19/19 at 16:47; Status DC Clindamycin Phosphate 50 ml @ 100 mls/hr 1X STAT IV Last administered on 06/19/19at 16:12; Start 06/19/19 at 15:48; Stop 06/19/19 at 16:17; Status DC Lidocaine HCl 20 ml 1X STAT IJ Last administered on 06/19/19at 16:28; Start 06/19/19 at 16:24; Stop 06/19/19 at 16:25; Status DC Ondansetron HCl (Zofran) 4 mg PRN Q8HRS PRN IV NAUSEA/VOMITING; Start 06/19/19 at 17:00; Stop 06/20/19 at 02:14; Status DC Fentanyl Citrate (Fentanyl 2ml Vial) 50 mcg 1X STAT IV Last administered on 06/19/19at 17:41; Start 06/19/19 at 17:13; Stop 06/19/19 at 17:15; Status DC Tramadol HCl (Ultram) 50 mg PRN Q6HRS PRN PO MILD PAIN 1-3; Start 06/19/19 at 17:45; Stop 06/20/19 at 02:13; Status DC Acetaminophen/ Hydrocodone Bitart (Lortab 5/325) 1 tab PRN Q4HRS PRN PO MODERATE PAIN Last administered on 06/25/19at 08:10; Start 06/19/19 at 17:45 Morphine Sulfate (Morphine Sulfate) 2 mg PRN Q2HR PRN IV PAIN Last administered on 06/25/19at 09:53; Start 06/19/19 at 17:45 Vitamin D (Vitamin D3) 2,000 unit DAILY PO Last administered on 06/25/19at 08:10; Start 06/20/19 at 09:00 Levothyroxine Sodium (Synthroid) 88 mcg DAILY06 PO Last administered on 06/25/19at 06:23; Start 06/20/19 at 06:00 Pantoprazole Sodium (Protonix) 40 mg DAILYAC PO Last administered on 06/25/19at 08:10; Start 06/20/19 at 07:30 Tramadol HCl (Ultram) 50 mg PRN Q6HRS PRN PO MILD PAIN 1-3; Start 06/19/19 at 20:30; Stop 06/23/19 at 08:16; Status DC Ondansetron HCl (Zofran) 4 mg PRN Q4HRS PRN IV NAUSEA/VOMITING 1ST CHOICE; Start 06/19/19 at 20:30 Zolpidem Tartrate (Ambien) 5 mg PRN QHS PRN PO INSOMNIA; Start 06/19/19 at 20:30 Acetaminophen (Tylenol) 650 mg PRN Q4HRS PRN PO TEMP OVER 100.4F OR HEADACHE Last administered on 06/23/19at 20:49; Start 06/19/19 at 20:30 Docusate Sodium (Colace) 100 mg PRN BID PRN PO CONSTIPATION 1ST CHOICE; Start 06/19/19 at 20:30 Piperacillin Sod/ Tazobactam Sod 3.375 gm/Sodium Chloride 50 ml @ 100 mls/hr Q6HRS IV Last administered on 06/23/19at 05:47; Start 06/20/19 at 00:00; Stop 06/23/19 at 08:12; Status DC Vancomycin HCl 2 gm/Sodium Chloride 500 ml @ 250 mls/hr 1X ONCE IV Last administered on 06/19/19at 21:14; Start 06/19/19 at 21:00; Stop 06/19/19 at 22:59; Status DC Vancomycin HCl (Vanco Per Pharmacy) 1 each PRN DAILY PRN MC SEE COMMENTS Last administered on 06/22/19at 20:08; Start 06/19/19 at 20:30; Stop 06/23/19 at 08:16; Status DC Enoxaparin Sodium (Lovenox 40mg Syringe) 40 mg Q24H SQ ; Start 06/19/19 at 21:00; Stop 06/19/19 at 20:40; Status DC Enoxaparin Sodium (Lovenox 40mg Syringe) 40 mg BID SQ Last administered on 06/23/19at 08:28; Start 06/19/19 at 21:00; Stop 06/23/19 at 17:56; Status DC Cyanocobalamin (Vitamin B-12) 1,000 mcg DAILY PO Last administered on 06/25/19at 08:10; Start 06/20/19 at 09:00 Vancomycin HCl 1.75 gm/Sodium Chloride 500 ml @ 250 mls/hr Q12H IV Last administered on 06/20/19at 21:03; Start 06/20/19 at 09:00; Stop 06/21/19 at 07:09; Status DC Vancomycin HCl (Vancomycin Trough Level) 1 each 1X ONCE MC ; Start 06/21/19 at 08:30; Stop 06/21/19 at 08:31; Status Cancel Lactobacillus Rhamnosus (Culturelle) 1 cap BID PO Last administered on 06/25/19at 08:10; Start 06/20/19 at 09:00 Gadoterate Meglumine (Dotarem) 10 ml 1X ONCE IVP Last administered on 06/20/19at 12:31; Start 06/20/19 at 12:45; Stop 06/20/19 at 12:46; Status DC Gadoterate Meglumine (Dotarem) 15 ml 1X ONCE IVP Last administered on 06/20/19at 12:30; Start 06/20/19 at 12:15; Stop 06/20/19 at 12:19; Status DC Vancomycin HCl 1.75 gm/Sodium Chloride 500 ml @ 250 mls/hr Q12H IV Last ad ministered on 06/22/19at 21:28; Start 06/21/19 at 20:00; Stop 06/23/19 at 08:16; Status DC Vancomycin HCl (Vancomycin Trough Level) 1 each 1X ONCE MC Last administered on 06/22/19at 19:30; Start 06/22/19 at 19:30; Stop 06/22/19 at 19:31; Status DC Ondansetron HCl (Zofran) 4 mg PRN Q6HRS PRN IV NAUSEA/VOMITING; Start 06/22/19 at 07:00; Stop 06/22/19 at 19:00; Status DC Fentanyl Citrate (Fentanyl 2ml Vial) 25 mcg PRN Q5MIN PRN IV MILD PAIN 1-3; Start 06/22/19 at 07:00; Stop 06/22/19 at 19:00; Status DC Fentanyl Citrate (Fentanyl 2ml Vial) 50 mcg PRN Q5MIN PRN IV MODERATE TO SEVERE PAIN; Start 06/22/19 at 07:00; Stop 06/22/19 at 19:00; Status DC Morphine Sulfate (Morphine Sulfate) 1 mg PRN Q10MIN PRN IV SEVERE PAIN 7-10 Last administered on 06/22/19at 13:43; Start 06/22/19 at 07:00; Stop 06/22/19 at 19:00; Status DC Ringer's Solution 1,000 ml @ 30 mls/hr Q24H IV Last administered on 06/22/19at 07:54; Start 06/22/19 at 07:00; Stop 06/22/19 at 18:59; Status DC Hydromorphone HCl (Dilaudid) 0.5 mg PRN Q10MIN PRN IV SEV PAIN, Second choice Last administered on 06/22/19at 14:04; Start 06/22/19 at 07:00; Stop 06/22/19 at 19:00; Status DC Prochlorperazine Edisylate (Compazine) 5 mg PACU PRN PRN IV NAUSEA, MRX1 Last administered on 06/22/19at 13:44; Start 06/22/19 at 07:00; Stop 06/22/19 at 19:00; Status DC Bupivacaine HCl/ Epinephrine Bitart (Sensorcaine-Epi 0.25%-1:039509 Mpf) 30 ml STK-MED ONCE .ROUTE ; Start 06/22/19 at 11:32; Stop 06/22/19 at 11:33; Status DC Propofol 20 ml @ As Directed STK-MED ONCE IV ; Start 06/22/19 at 11:49; Stop 06/22/19 at 11:49; Status DC Famotidine (Pepcid Vial) 20 mg STK-MED ONCE .ROUTE ; Start 06/22/19 at 11:49; Stop 06/22/19 at 11:49; Status DC Lidocaine HCl (Lidocaine Pf 2% Vial) 5 ml STK-MED ONCE .ROUTE ; Start 06/22/19 at 11:49; Stop 06/22/19 at 11:49; Status DC Ondansetron HCl (Zofran) 4 mg STK-MED ONCE .ROUTE ; Start 06/22/19 at 11:49; Stop 06/22/19 at 11:49; Status DC Dexamethasone Sodium Phosphate (Decadron) 4 mg STK-MED ONCE .ROUTE ; Start 06/22/19 at 11:49; Stop 06/22/19 at 11:49; Status DC Fentanyl Citrate (Fentanyl 2ml Vial) 100 mcg STK-MED ONCE .ROUTE ; Start 06/22/19 at 11:49; Stop 06/22/19 at 11:49; Status DC Midazolam HCl (Versed) 2 mg STK-MED ONCE .ROUTE ; Start 06/22/19 at 11:50; Stop 06/22/19 at 11:50; Status DC Ketamine HCl (Ketamine) 50 mg STK-MED ONCE .ROUTE ; Start 06/22/19 at 11:51; Stop 06/22/19 at 11:51; Status DC Fentanyl Citrate (Fentanyl 2ml Vial) 100 mcg STK-MED ONCE .ROUTE ; Start 06/22/19 at 13:11; Stop 06/22/19 at 13:11; Status DC Hydromorphone HCl (Dilaudid) 2 mg STK-MED ONCE .ROUTE ; Start 06/22/19 at 14:09; Stop 06/22/19 at 14:09; Status DC Cefazolin Sodium (Ancef) 1 gm Q8HRS IVP ; Start 06/23/19 at 14:00; Stop 06/23/19 at 14:54; Status DC Linezolid (Zyvox) 600 mg BID PO Last administered on 06/25/19at 08:10; Start 06/23/19 at 09:00 Enoxaparin Sodium (Lovenox 60mg Syringe) 60 mg Q12HR SQ Last administered on at 09:00; Start 06/23/19 at 21:00; Stop 06/24/19 at 11:05; Status DC Enoxaparin Sodium (Lovenox 60mg Syringe) 60 mg DAILY SQ Last administered on 06/25/19at 09:53; Start 06/25/19 at 09:00 Sodium Chloride 1,000 ml @ 100 mls/hr 1X ONCE IV Last administered on 06/24/19at 13:49; Start 06/24/19 at 13:30; Stop 06/24/19 at 23:29; Status DC Active Scripts Active Reported Tramadol Hcl 50 Mg Tablet 1 Tab PO PRN Q6HRS Pantoprazole Sodium (Pantoprazole Sodium) 40 Mg Tablet.dr 1 Tab PO DAILY Vitamin D3 (Cholecalciferol (Vitamin D3)) 1,000 Unit Tablet 2,000 Unit PO DAILY Alendronate Sodium 35 Mg Tablet 1 Tab PO WEEKLY Synthroid (Levothyroxine Sodium) 88 Mcg Tablet 88 Mcg PO DAILYAC Vitals/I & O Vital Sign - Last 24 Hours 06/24/19 06/24/19 06/24/19 06/24/19 10:14 10:29 10:59 11:00 Temp 98.1 98.1 Pulse 62 Resp 18 B/P (MAP) 134/85 (101) Pulse Ox 100 O2 Delivery Room Air Room Air Room Air Room Air 06/24/19 06/24/19 06/24/19 06/24/19 15:00 19:00 19:32 19:45 Temp 98.1 99.7 98.1 99.7 Pulse 88 90 Resp 16 18 20 B/P (MAP) 162/76 (104) 178/94 (122) Pulse Ox 99 96 O2 Delivery Room Air Nasal Cannula Room Air Room Air O2 Flow Rate 4.0 06/24/19 06/24/19 06/25/19 06/25/19 20:32 23:00 03:00 07:00 Temp 99.7 99.3 97.8 99.7 99.3 97.8 Pulse 90 90 90 Resp 20 18 18 16 B/P (MAP) 155/85 (108) 145/87 (106) 164/84 (110) Pulse Ox 92 93 95 O2 Delivery Room Air Nasal Cannula Nasal Cannula Room Air O2 Flow Rate 4.0 4.0 06/25/19 06/25/19 08:10 09:53 O2 Delivery Room Air Room Air Intake and Output 06/24/19 06/24/19 06/25/19 15:00 23:00 07:00 Intake Total 240 ml 700 ml Balance 240 ml 700 ml GUME AYALA MD Jun 25, 2019 10:11
[2019-06-25 11:00] VITALS: BP 150/87
--- NOTE | 2019-06-25 11:23 | PDOC ---
SUBJECTIVE ROS No complaints OBJECTIVE Vital Signs Vital Signs Date Time Temp Pulse Resp B/P (MAP) Pulse Ox O2 Delivery O2 Flow Rate FiO2 06/25/19 10:23 Room Air 06/25/19 07:00 97.8 90 16 164/84 (110) 95 97.8 06/25/19 03:00 4.0 I & 0 Intake and Output 06/25/19 07:00 Intake Total 940 ml Balance 940 ml Intake Oral 240 ml Other 700 ml # Voids 6 # Bowel Movements 1 PHYSICAL EXAM Physical Exam Gen NAD HEENT: Oral pharynx moist NECK: Supple. LUNGS: Clear. HEART: S1, S2. ABDOMEN: Soft, nontender, EXTREMITIES: Without clubbing, cyanosis. Per ID note SKIN: No rash NEUROLOGIC: grossly normal - no SP or CVA tenderness, No ribera DIAGNOSIS/ASSESSMENT Assessment & Plan GAMALIEL- ATN/Vs AIN ? 2/2 Vanc Normal renal function at baseline , Cr increasing since 06/23 , Cr 1.2-->2.5 -->2.6 (?Plateaued) ; BUN normal UA, Renal US unremarkable Supportive care , strict i/o, Avoid nephrotoxins, Monitor Hypernatremia - resolved Right leg deep abscesses- S/p Incision and drainage, Was on vanc, dced now S/p Dexamethasone 06/22 RLE cellulitis Leg nodules - ? Erythema Nodsum - abscess- per ID Discussed A/P with Pt COMMENT/RELEVANT DATA Meds Current Medications Medications (Trade) Dose Ordered Sig/Gokul Start Time Stop Time Status Last Admin Dose Admin Acetaminophen (Tylenol) 650 mg PRN Q4HRS PRN 06/19/19 20:30 06/23/19 20:49 650 MG Acetaminophen/ Hydrocodone Bitart (Lortab 5/325) 1 tab PRN Q4HRS PRN 06/19/19 17:45 06/25/19 08:10 1 TAB Bupivacaine HCl/ Epinephrine Bitart (Sensorcaine-Epi 0.25%-1:932812 Mpf) 30 ml STK-MED ONCE 06/22/19 11:32 06/22/19 11:33 DC Cefazolin Sodium (Ancef) 1 gm Q8HRS 06/23/19 14:00 06/23/19 14:54 DC Clindamycin Phosphate 50 ml @ 100 mls/hr 1X STAT 06/19/19 15:48 06/19/19 16:17 DC 06/19/19 16:12 100 MLS/HR Cyanocobalamin (Vitamin B-12) 1,000 mcg DAILY 06/20/19 09:00 06/25/19 08:10 1,000 MCG Dexamethasone Sodium Phosphate (Decadron) 4 mg STK-MED ONCE 06/22/19 11:49 06/22/19 11:49 DC Docusate Sodium (Colace) 100 mg PRN BID PRN 06/19/19 20:30 Enoxaparin Sodium (Lovenox 40mg Syringe) 40 mg BID 06/19/19 21:00 06/23/19 17:56 DC 06/23/19 08:28 40 MG Enoxaparin Sodium (Lovenox 60mg Syringe) 60 mg DAILY 06/25/19 09:00 06/25/19 09:53 60 MG Famotidine (Pepcid Vial) 20 mg STK-MED ONCE 06/22/19 11:49 06/22/19 11:49 DC Fentanyl Citrate (Fentanyl 2ml Vial) 100 mcg STK-MED ONCE 06/22/19 13:11 06/22/19 13:11 DC Gadoterate Meglumine (Dotarem) 15 ml 1X ONCE 06/20/19 12:15 06/20/19 12:19 DC 06/20/19 12:30 15 ML Hydromorphone HCl (Dilaudid) 2 mg STK-MED ONCE 06/22/19 14:09 06/22/19 14:09 DC Ketamine HCl (Ketamine) 50 mg STK-MED ONCE 06/22/19 11:51 06/22/19 11:51 DC Lactobacillus Rhamnosus (Culturelle) 1 cap BID 06/20/19 09:00 06/25/19 08:10 1 CAP Levothyroxine Sodium (Synthroid) 88 mcg DAILY06 06/20/19 06:00 06/25/19 06:23 88 MCG Lidocaine HCl (Lidocaine Pf 2% Vial) 5 ml STK-MED ONCE 06/22/19 11:49 06/22/19 11:49 DC Linezolid (Zyvox) 600 mg BID 06/23/19 09:00 06/25/19 08:10 600 MG Midazolam HCl (Versed) 2 mg STK-MED ONCE 06/22/19 11:50 06/22/19 11:50 DC Morphine Sulfate (Morphine Sulfate) 1 mg PRN Q10MIN PRN 06/22/19 07:00 06/22/19 19:00 DC 06/22/19 13:43 1 MG Ondansetron HCl (Zofran) 4 mg STK-MED ONCE 06/22/19 11:49 06/22/19 11:49 DC Pantoprazole Sodium (Protonix) 40 mg DAILYAC 06/20/19 07:30 06/25/19 08:10 40 MG Piperacillin Sod/ Tazobactam Sod 3.375 gm/Sodium Chloride 50 ml @ 100 mls/hr Q6HRS 06/20/19 00:00 06/23/19 08:12 DC 06/23/19 05:47 100 MLS/HR Prochlorperazine Edisylate (Compazine) 5 mg PACU PRN PRN 06/22/19 07:00 06/22/19 19:00 DC 06/22/19 13:44 5 MG Propofol 20 ml @ As Directed STK-MED ONCE 06/22/19 11:49 06/22/19 11:49 DC Ringer's Solution 1,000 ml @ 30 mls/hr Q24H 06/22/19 07:00 06/22/19 18:59 DC 06/22/19 07:54 30 MLS/HR Sodium Chloride 1,000 ml @ 100 mls/hr 1X ONCE 06/24/19 13:30 06/24/19 23:29 DC 06/24/19 13:49 100 MLS/HR Tramadol HCl (Ultram) 50 mg PRN Q6HRS PRN 06/19/19 20:30 06/23/19 08:16 DC Vancomycin HCl (Vanco Per Pharmacy) 1 each PRN DAILY PRN 06/19/19 20:30 06/23/19 08:16 DC 06/22/19 20:08 1 EACH Vancomycin HCl (Vancomycin Trough Level) 1 each 1X ONCE 06/22/19 19:30 06/22/19 19:31 DC 06/22/19 19:30 1 EACH Vancomycin HCl 1.75 gm/Sodium Chloride 500 ml @ 250 mls/hr Q12H 06/21/19 20:00 06/23/19 08:16 DC 06/22/19 21:28 250 MLS/HR Vancomycin HCl 2 gm/Sodium Chloride 500 ml @ 250 mls/hr 1X ONCE 06/19/19 21:00 06/19/19 22:59 DC 06/19/19 21:14 250 MLS/HR Vitamin D (Vitamin D3) 2,000 unit DAILY 06/20/19 09:00 06/25/19 08:10 2,000 UNIT Zolpidem Tartrate (Ambien) 5 mg PRN QHS PRN 06/19/19 20:30 Lab Laboratory Tests Test 06/24/19 15:20 06/25/19 04:35 Urine Collection Type Unknown Urine Color Yellow Urine Clarity Clear Urine pH 6.0 Urine Specific [place] <=1.005 Urine Protein Negative mg/dL (NEG-TRACE) Urine Glucose (UA) Negative mg/dL (NEG) Urine Ketones (Stick) Negative mg/dL (NEG) Urine Blood Trace (NEG) Urine Nitrite Negative (NEG) Urine Bilirubin Negative (NEG) Urine Urobilinogen Dipstick 0.2 mg/dL (0.2 mg/dL) Urine Leukocyte Esterase Trace (NEG) Urine RBC 0 /HPF (0-2) Urine WBC Rare /HPF (0-4) Urine Squamous Epithelial Cells Occ /LPF Urine Bacteria 0 /HPF (0-FEW) Urine Eosinophils Eos not observed White Blood Count 9.5 x10^3/uL (4.0-11.0) Red Blood Count 2.23 x10^6/uL (3.50-5.40) Hemoglobin 10.3 g/dL (12.0-15.5) Hematocrit 29.6 % (36.0-47.0) Mean Corpuscular Volume 133 fL (79-100) Mean Corpuscular Hemoglobin 46 pg (25-35) Mean Corpuscular Hemoglobin Concent 35 g/dL (31-37) Red Cell Distribution Width 16.4 % (11.5-14.5) Platelet Count 287 x10^3/uL (140-400) Neutrophils (%) (Auto) 72 % (31-73) Lymphocytes (%) (Auto) 14 % (24-48) Monocytes (%) (Auto) 12 % (0-9) Eosinophils (%) (Auto) 1 % (0-3) Basophils (%) (Auto) 1 % (0-3) Neutrophils # (Auto) 6.8 x10^3/uL (1.8-7.7) Lymphocytes # (Auto) 1.4 x10^3/uL (1.0-4.8) Monocytes # (Auto) 1.2 x10^3/uL (0.0-1.1) Eosinophils # (Auto) 0.1 x10^3/uL (0.0-0.7) Basophils # (Auto) 0.1 x10^3/uL (0.0-0.2) Sodium Level 144 mmol/L (136-145) Potassium Level 3.3 mmol/L (3.5-5.1) Chloride Level 108 mmol/L (98-107) Carbon Dioxide Level 25 mmol/L (21-32) Anion Gap 11 (6-14) Blood Urea Nitrogen 14 mg/dL (7-20) Creatinine 2.6 mg/dL (0.6-1.0) Estimated GFR (Cockcroft-Gault) 22.7 Glucose Level 113 mg/dL (70-99) Calcium Level 9.7 mg/dL (8.5-10.1) Phosphorus Level 4.8 mg/dL (2.6-4.7) Creatine Kinase 94 U/L (26-192) Albumin 2.9 g/dL (3.4-5.0) Results All relevant outside records, renal labs, imaging studies, telemetry/EKG's were reviewed. SHAHRZAD GOMEZ MD Jun 25, 2019 11:23
[2019-06-25 15:00] VITALS: BP 134/75
[2019-06-25] MEDS ORDERED: POTASSIUM CHLORIDE 20 MEQ TABLET.ER. PO ONE (16:00)
[2019-06-25 19:00] VITALS: BP 167/91
[2019-06-25 23:00] VITALS: BP 138/75
[2019-06-26 03:00] VITALS: BP 152/82
[2019-06-26] MEDS: ACETAMINOPHEN 325 MG TABLET. PO PRN (03:14)
[2019-06-26] MEDS: LEVOTHYROXINE 88 MCG TABLET PO SCH (06:04)
[2019-06-26 06:31] LABS: ALBUMIN 2.8 g/dL (3.4-5.0); CALCIUM 9.1 mg/dL (8.5-10.1); CREATININE 2.5 mg/dL (0.6-1.0); GFR 23.8; PHOSPHORUS 4.9 mg/dL (2.6-4.7); POTASSIUM 3.6 mmol/L (3.5-5.1)
[2019-06-26 07:00] VITALS: BP 130/63
[2019-06-26] MEDS: CHOLECALCIFEROL (VITAMIN D3) 1,000 UNIT TABLET PO SCH (08:47)
[2019-06-26] MEDS: LINEZOLID 600 MG TABLET PO SCH (08:47)
[2019-06-26] MEDS: CYANOCOBALAMIN (VITAMIN B-12) 1,000 MCG TABLET. PO SCH (08:47)
[2019-06-26] MEDS: PANTOPRAZOLE 40 MG TABLET.DR. PO SCH (08:47)
[2019-06-26] MEDS: LACTOBACILLUS RHAMNOSUS GG 1 CAPSULE. PO SCH (08:47)
--- NOTE | 2019-06-26 08:54 | PDOC ---
Infectious Disease Note Subjective Subjective Better overall ambulated without walker and ankle feels better after ambulation Hungry urinating well and a lot No F/C/S/N/V/D/rash. + Flatus Vital Sign Vital Signs Vital Signs Date Time Temp Pulse Resp B/P (MAP) Pulse Ox O2 Delivery O2 Flow Rate FiO2 06/26/19 07:00 98.2 76 18 130/63 (85) 93 Room Air 98.2 Physical Exam PHYSICAL EXAM CONSTITUTIONAL: She is pleasant, cooperative. She is in no acute distress. She is sitting upright in bed. looks well and smiling HEENT: Pupils are equal and reactive. She had normal conjunctivae. Oral cavity, pharynx was clear. NECK: Supple. Good range of motion. No JVD. LUNGS: Clear. HEART: S1, S2. ABDOMEN: Soft, nontender, no guarding or rebound. EXTREMITIES: Without clubbing, cyanosis. She has trace + lower extremity edema less Wounds dressed today Previous 06/24 on the lateral aspect she has a small sized area without gross drainage. She has three discrete lesions, one was up in the middle third of her tibia that is packed with min erythema and some ternderness. in the anterior medial aspect now less red and packed - looks better and the one just above her ankle is much better and packed. They are SKIN: Without generalized signs of rash. NEUROLOGIC: She is nonfocal. PSYCHIATRIC: Affect is appropriate. Labs Lab Laboratory Tests Test 06/25/19 11:25 06/25/19 21:00 06/26/19 05:35 Urine Eosinophils Eos observed Eos not observed Sodium Level 146 mmol/L (136-145) Potassium Level 3.6 mmol/L (3.5-5.1) Chloride Level 109 mmol/L (98-107) Carbon Dioxide Level 26 mmol/L (21-32) Anion Gap 11 (6-14) Blood Urea Nitrogen 12 mg/dL (7-20) Creatinine 2.5 mg/dL (0.6-1.0) Estimated GFR (Cockcroft-Gault) 23.8 Glucose Level 103 mg/dL (70-99) Calcium Level 9.1 mg/dL (8.5-10.1) Phosphorus Level 4.9 mg/dL (2.6-4.7) Albumin 2.8 g/dL (3.4-5.0) Objective Assessment MRSA from 06/19 and gram stain 06/22 + staph aureus GAMALIEL- stable today - Urine for EOS - neg. Making appropriate urine S/p Incision and drainage, right leg deep abscesses CPT 65927 (x3 locations) 06/22 no bone - better RLE cellulitis RLE abscess s/p I and D in ER 06/19 MRI reviewed - small fluid collection - no Osteo -cults neg so far Leukocytosis - better Leg nodules - ? Erythema Nodsum - abscess Plan Plan of Care d/c ok on po zyvox local care f/u with Dr Reyes f/u with us if needed D/w Nursing ERIK JOHNSON MD Jun 26, 2019 08:54
[2019-06-26] MEDS ORDERED: HYDR-2761 PO (09:00)
[2019-06-26] MEDS ORDERED: LINE600T12 PO (09:00)
[2019-06-26 09:06] LABS: CALCIUM 9.2 mg/dL (8.5-10.1); CREATININE 2.6 mg/dL (0.6-1.0); GFR 22.7; POTASSIUM 3.6 mmol/L (3.5-5.1)
[2019-06-26 09:09] LABS: BASO # 0.1 x10^3/uL (0.0-0.2); BASO % 1 % (0-3); EOS # 0.1 x10^3/uL (0.0-0.7); EOS % 2 % (0-3); HEMATOCRIT 28.3 % (36.0-47.0); HEMOGLOBIN 9.7 g/dL (12.0-15.5); LYMPH # 1.6 x10^3/uL (1.0-4.8); LYMPH % 18 % (24-48); MEAN CORPUSCULAR HEMOGLOBIN 46 pg (25-35); MEAN CORPUSCULAR HGB CONC 34 g/dL (31-37); MEAN CORPUSCULAR VOLUME 133 fL (79-100); MONO # 0.9 x10^3/uL (0.0-1.1); MONO % 10 % (0-9); NEUT # 6.5 x10^3/uL (1.8-7.7); NEUT % 70 % (31-73); PLATELET COUNT 273 x10^3/uL (140-400); RED BLOOD COUNT 2.12 x10^6/uL (3.50-5.40); RED CELL DISTRIBUTION WIDTH 17.2 % (11.5-14.5); WHITE BLOOD COUNT 9.2 x10^3/uL (4.0-11.0)
[2019-06-26 11:00] VITALS: BP 155/93
--- NOTE | 2019-06-26 11:27 | SNU/HH DC ---
DISCHARGE WITH HOME HEALTH DISCHARGE INFORMATION: Discharge Date: Jun 26, 2019 Final Diagnosis: Problems Medical Problems: (1) Cellulitis and abscess of leg Status: Acute Condition on Discharge: Stable CODE STATUS: Code Status: Full HOME HEALTH: Face to Face: I certify this patient is under my care and that I, or a nurse practitioner or physician's educational program assistant working with me, had a face to face encounter that meets the physician face to face encounter requirements with this patient on []. Medical Complications: Falls RN For Eval/Treatment: Yes Physical Therapy For: Evalulation/Treatment Occupational Therapy For: Evaluation/Treatment Speech Language Pathology For: Evaluation/Treatment Home Health Aide For: Self-care ACCOUNTING PROFESSIONAL For: Community Resources Pt Meets Homebound Status: Unsteady balance w/ amb, POST DISCHARGE ORDERS: DIET AFTER DISCHARGE: Regular CHECKS AFTER DISCHARGE: Checks after discharge: Check blood press - daily, Check blood sugar, ac/hs FOLLOW-UP: PCP to follow Home Health: dressing change daily CERTIFICATION STATEMENT: Certification Statement: Certification Statement: Based on the above finding, I certify that this patient is confined to the home and needs intermittent custodial care, physical therapy and/or speech therapy, or continues to need occupational therapy.~ This patient is under my care, and I have initiated the establishment of the plan of care.~ This patient will be followed by myself or a community physician who will periodically review the plan of care. Home Meds Active Scripts Linezolid (ZYVOX) 600 Mg Tablet, 600 MG PO BID for rt leg cellulitis, #14 TAB Prov:CIRO BETHEA MD 06/26/19 Hydrocodone Bit/Acetaminophen (HYDROCODONE-APAP 5-325 ) 1 Tab Tablet, 1 TAB PO PRN Q4HRS PRN for MODERATE PAIN, #20 TAB Prov:CIRO BETHEA MD 06/26/19 Reported Medications Tramadol Hcl (TRAMADOL HCL) 50 Mg Tablet, 1 TAB PO PRN Q6HRS, #30 TAB 03/13/16 Pantoprazole Sodium (PANTOPRAZOLE SODIUM ) 40 Mg Tablet.dr, 1 TAB PO DAILY, #30 TAB 3 Refills 03/13/16 Cholecalciferol (Vitamin D3) (VITAMIN D3) 1,000 Unit Tablet, 2000 UNIT PO DAILY 02/05/16 Alendronate Sodium (ALENDRONATE SODIUM) 35 Mg Tablet, 1 TAB PO WEEKLY, #4 TAB 11 Refills 02/05/16 Levothyroxine Sodium (SYNTHROID) 88 Mcg Tablet, 88 MCG PO DAILYAC for THYROID SUPPLEMENT, #30 TAB 0 Refills 02/05/16 CIRO BETHEA MD Jun 26, 2019 11:27
--- NOTE | 2019-06-26 11:38 | PDOC3 ---
Discharge Summary Visit Information Date of Admission: Jun 19, 2019 Date of Discharge: Jun 26, 2019 Admitting Diagnosis Comment: MRSA from 06/19 and gram stain 06/22 + staph aureus GAMALIEL- stable today - Urine for EOS - neg. Making appropriate urine S/p Incision and drainage, right leg deep abscesses CPT 74696 (x3 locations) 06/22 no bone - better RLE cellulitis RLE abscess s/p I and D in ER 06/19 MRI reviewed - small fluid collection - no Osteo -cults neg so far Leukocytosis - better Leg nodules - ? Erythema Nodsum - abscess Final Diagnosis Problems Medical Problems: (1) Cellulitis and abscess of leg Status: Acute Brief Hospital Course Allergies Allergies Coded Allergies Type Severity Reaction Last Updated Verified I S O L A T I O N *CONTACT* Allergy Unknown 06/26/19 Yes No Known Medication Allergies Allergy Unknown 06/26/19 Yes Vital Signs Vital Signs Date Time Temp Pulse Resp B/P (MAP) Pulse Ox O2 Delivery O2 Flow Rate FiO2 06/26/19 07:40 Room Air 06/26/19 07:00 98.2 76 18 130/63 (85) 93 98.2 Lab Results Laboratory Tests Test 06/24/19 15:20 06/25/19 04:35 06/25/19 11:25 06/25/19 21:00 Urine Collection Type Unknown Urine Color Yellow Urine Clarity Clear Urine pH 6.0 Urine Specific [place] <=1.005 Urine Protein Negative mg/dL (NEG-TRACE) Urine Glucose (UA) Negative mg/dL (NEG) Urine Ketones (Stick) Negative mg/dL (NEG) Urine Blood Trace (NEG) Urine Nitrite Negative (NEG) Urine Bilirubin Negative (NEG) Urine Urobilinogen Dipstick 0.2 mg/dL (0.2 mg/dL) Urine Leukocyte Esterase Trace (NEG) Urine RBC 0 /HPF (0-2) Urine WBC Rare /HPF (0-4) Urine Squamous Epithelial Cells Occ /LPF Urine Bacteria 0 /HPF (0-FEW) Urine Eosinophils Eos not observed Eos observed Eos not observed White Blood Count 9.5 x10^3/uL (4.0-11.0) Red Blood Count 2.23 x10^6/uL (3.50-5.40) Hemoglobin 10.3 g/dL (12.0-15.5) Hematocrit 29.6 % (36.0-47.0) Mean Corpuscular Volume 133 fL (79-100) Mean Corpuscular Hemoglobin 46 pg (25-35) Mean Corpuscular Hemoglobin Concent 35 g/dL (31-37) Red Cell Distribution Width 16.4 % (11.5-14.5) Platelet Count 287 x10^3/uL (140-400) Neutrophils (%) (Auto) 72 % (31-73) Lymphocytes (%) (Auto) 14 % (24-48) Monocytes (%) (Auto) 12 % (0-9) Eosinophils (%) (Auto) 1 % (0-3) Basophils (%) (Auto) 1 % (0-3) Neutrophils # (Auto) 6.8 x10^3/uL (1.8-7.7) Lymphocytes # (Auto) 1.4 x10^3/uL (1.0-4.8) Monocytes # (Auto) 1.2 x10^3/uL (0.0-1.1) Eosinophils # (Auto) 0.1 x10^3/uL (0.0-0.7) Basophils # (Auto) 0.1 x10^3/uL (0.0-0.2) Sodium Level 144 mmol/L (136-145) Potassium Level 3.3 mmol/L (3.5-5.1) Chloride Level 108 mmol/L (98-107) Carbon Dioxide Level 25 mmol/L (21-32) Anion Gap 11 (6-14) Blood Urea Nitrogen 14 mg/dL (7-20) Creatinine 2.6 mg/dL (0.6-1.0) Estimated GFR (Cockcroft-Gault) 22.7 Glucose Level 113 mg/dL (70-99) Calcium Level 9.7 mg/dL (8.5-10.1) Phosphorus Level 4.8 mg/dL (2.6-4.7) Creatine Kinase 94 U/L (26-192) Albumin 2.9 g/dL (3.4-5.0) Test 06/26/19 05:35 White Blood Count 9.2 x10^3/uL (4.0-11.0) Red Blood Count 2.12 x10^6/uL (3.50-5.40) Hemoglobin 9.7 g/dL (12.0-15.5) Hematocrit 28.3 % (36.0-47.0) Mean Corpuscular Volume 133 fL (79-100) Mean Corpuscular Hemoglobin 46 pg (25-35) Mean Corpuscular Hemoglobin Concent 34 g/dL (31-37) Red Cell Distribution Width 17.2 % (11.5-14.5) Platelet Count 273 x10^3/uL (140-400) Neutrophils (%) (Auto) 70 % (31-73) Lymphocytes (%) (Auto) 18 % (24-48) Monocytes (%) (Auto) 10 % (0-9) Eosinophils (%) (Auto) 2 % (0-3) Basophils (%) (Auto) 1 % (0-3) Neutrophils # (Auto) 6.5 x10^3/uL (1.8-7.7) Lymphocytes # (Auto) 1.6 x10^3/uL (1.0-4.8) Monocytes # (Auto) 0.9 x10^3/uL (0.0-1.1) Eosinophils # (Auto) 0.1 x10^3/uL (0.0-0.7) Basophils # (Auto) 0.1 x10^3/uL (0.0-0.2) Erythrocyte Sedimentation Rate 107 (0-25) Sodium Level 144 mmol/L (136-145) Potassium Level 3.6 mmol/L (3.5-5.1) Chloride Level 107 mmol/L (98-107) Carbon Dioxide Level 24 mmol/L (21-32) Anion Gap 13 (6-14) Blood Urea Nitrogen 12 mg/dL (7-20) Creatinine 2.6 mg/dL (0.6-1.0) Estimated GFR (Cockcroft-Gault) 22.7 Glucose Level 105 mg/dL (70-99) Calcium Level 9.2 mg/dL (8.5-10.1) Phosphorus Level 4.9 mg/dL (2.6-4.7) Albumin 2.8 g/dL (3.4-5.0) Laboratory Tests Test 06/25/19 21:00 06/26/19 05:35 Urine Eosinophils Eos not observed White Blood Count 9.2 x10^3/uL (4.0-11.0) Red Blood Count 2.12 x10^6/uL (3.50-5.40) Hemoglobin 9.7 g/dL (12.0-15.5) Hematocrit 28.3 % (36.0-47.0) Mean Corpuscular Volume 133 fL (79-100) Mean Corpuscular Hemoglobin 46 pg (25-35) Mean Corpuscular Hemoglobin Concent 34 g/dL (31-37) Red Cell Distribution Width 17.2 % (11.5-14.5) Platelet Count 273 x10^3/uL (140-400) Neutrophils (%) (Auto) 70 % (31-73) Lymphocytes (%) (Auto) 18 % (24-48) Monocytes (%) (Auto) 10 % (0-9) Eosinophils (%) (Auto) 2 % (0-3) Basophils (%) (Auto) 1 % (0-3) Neutrophils # (Auto) 6.5 x10^3/uL (1.8-7.7) Lymphocytes # (Auto) 1.6 x10^3/uL (1.0-4.8) Monocytes # (Auto) 0.9 x10^3/uL (0.0-1.1) Eosinophils # (Auto) 0.1 x10^3/uL (0.0-0.7) Basophils # (Auto) 0.1 x10^3/uL (0.0-0.2) Erythrocyte Sedimentation Rate 107 (0-25) Sodium Level 144 mmol/L (136-145) Potassium Level 3.6 mmol/L (3.5-5.1) Chloride Level 107 mmol/L (98-107) Carbon Dioxide Level 24 mmol/L (21-32) Anion Gap 13 (6-14) Blood Urea Nitrogen 12 mg/dL (7-20) Creatinine 2.6 mg/dL (0.6-1.0) Estimated GFR (Cockcroft-Gault) 22.7 Glucose Level 105 mg/dL (70-99) Calcium Level 9.2 mg/dL (8.5-10.1) Phosphorus Level 4.9 mg/dL (2.6-4.7) Albumin 2.8 g/dL (3.4-5.0) Brief Hospital Course Ms. Gutiérrez is a 58 old [sex] who presented with rt leb abscess/wound needing I and D and deep small packing that is being cut 2 inches in a day. She has 2 spots and the other spot has no more deep dressing and is left to heal via secondary intention, Asking for SW assistance re zyvox - COnsults: ID Proc: I and D deep , anterior atkins She asks for 1 week work excuse (I gave her script) Discharge Information Condition at Discharge: Improved, Stable Disposition/Orders: D/C to Home w/ HH Scheduled Alendronate Sodium (Alendronate Sodium) 35 Mg Tablet, 1 TAB PO WEEKLY, #4 Ref 11 (Reported) Entered as Reported by: STEPHANIE CAN on 02/05/162013 Last Action: Reviewed on 06/19/192005 by KEVEN JOYNER Cholecalciferol (Vitamin D3) (Vitamin D3) 1,000 Unit Tablet, 2,000 UNIT PO DAILY, (Reported) Entered as Reported by: STEPHANIE CAN on 02/05/162013 Last Action: Continued on 06/19/192027 by TEMITOPE MACKEY MD Levothyroxine Sodium (Synthroid) 88 Mcg Tablet, 88 MCG PO DAILYAC for THYROID SUPPLEMENT, #30 Ref 0 (Reported) Entered as Reported by: STEPHANIE CAN on 02/05/162013 Last Action: Continued on 06/19/192027 by TEMITOPE MACKEY MD Linezolid (Zyvox) 600 Mg Tablet, 600 MG PO BID for rt leg cellulitis, #14 Prescribed by: CIRO BETHEA on 06/26/19 0900 Pantoprazole Sodium (Pantoprazole Sodium ) 40 Mg Tablet.dr, 1 TAB PO DAILY, #30 Ref 3 (Reported) Entered as Reported by: BAYRON BOO on 03/13/16 08 Last Action: Continued on 06/19/192027 by TEMITOPE MACKEY MD Tramadol Hcl (Tramadol Hcl) 50 Mg Tablet, 1 TAB PO PRN Q6HRS, #30 (Reported) Entered as Reported by: BAYRON BOO on 03/13/16805 Last Action: Continued on 06/19/192027 by TEMITOPE MACKEY MD Scheduled PRN Hydrocodone Bit/Acetaminophen (Hydrocodone-Apap 5-325 ) 1 Tab Tablet, 1 TAB PO PRN Q4HRS PRN for MODERATE PAIN, #20 Prescribed by: CIRO BETHEA on 06/26/19 0900 CIRO BETHEA MD Jun 26, 2019 11:38
--- NOTE | 2019-06-26 11:39 | NUR ---
[facility] following. Discussed with RN, pt is from home, will need home health for dressing changes. Bob Saenz RN to meet with pt prior to discharge. [facility] will continue to follow. RN notified. Addendum: 06/26/19 at 1334 by MARILYN SEGURA Pt accepted with [facility]. Discharging today.
--- NOTE | 2019-06-26 11:57 | PDOC ---
Renal-Progress Notes Subjective Notes Notes FEELS WELL History of Present Illness Hx of present illness STABLE Vitals Vitals Vital Signs Date Time Temp Pulse Resp B/P (MAP) Pulse Ox O2 Delivery O2 Flow Rate FiO2 06/26/19 11:00 98.3 77 18 155/93 (113) 94 Room Air 98.3 Weight Weight [ ] I.O. Intake and Output Intake and Output 06/26/19 07:00 Intake Total 420 ml Balance 420 ml Intake Oral 420 ml # Voids 6 Labs Labs Laboratory Tests Test 06/25/19 21:00 06/26/19 05:35 Urine Eosinophils Eos not observed White Blood Count 9.2 x10^3/uL (4.0-11.0) Red Blood Count 2.12 x10^6/uL (3.50-5.40) Hemoglobin 9.7 g/dL (12.0-15.5) Hematocrit 28.3 % (36.0-47.0) Mean Corpuscular Volume 133 fL (79-100) Mean Corpuscular Hemoglobin 46 pg (25-35) Mean Corpuscular Hemoglobin Concent 34 g/dL (31-37) Red Cell Distribution Width 17.2 % (11.5-14.5) Platelet Count 273 x10^3/uL (140-400) Neutrophils (%) (Auto) 70 % (31-73) Lymphocytes (%) (Auto) 18 % (24-48) Monocytes (%) (Auto) 10 % (0-9) Eosinophils (%) (Auto) 2 % (0-3) Basophils (%) (Auto) 1 % (0-3) Neutrophils # (Auto) 6.5 x10^3/uL (1.8-7.7) Lymphocytes # (Auto) 1.6 x10^3/uL (1.0-4.8) Monocytes # (Auto) 0.9 x10^3/uL (0.0-1.1) Eosinophils # (Auto) 0.1 x10^3/uL (0.0-0.7) Basophils # (Auto) 0.1 x10^3/uL (0.0-0.2) Erythrocyte Sedimentation Rate 107 (0-25) Sodium Level 144 mmol/L (136-145) Potassium Level 3.6 mmol/L (3.5-5.1) Chloride Level 107 mmol/L (98-107) Carbon Dioxide Level 24 mmol/L (21-32) Anion Gap 13 (6-14) Blood Urea Nitrogen 12 mg/dL (7-20) Creatinine 2.6 mg/dL (0.6-1.0) Estimated GFR (Cockcroft-Gault) 22.7 Glucose Level 105 mg/dL (70-99) Calcium Level 9.2 mg/dL (8.5-10.1) Phosphorus Level 4.9 mg/dL (2.6-4.7) Albumin 2.8 g/dL (3.4-5.0) Micro Micro Microbiology 06/22/19 Anaerobic/Aerobic Culture, Resulted Pending 06/22/19 Anaerobic Culture Result 1 (CLAUDIA), Resulted Pending 06/22/19 Aerobic Culture - Preliminary, Resulted 06/22/19 Aerobic Culture Result 1 (CLAUDIA) - Preliminary, Resulted 06/22/19 Gram Stain - Final, Resulted 06/22/19 Gram Stain Result 1 (CLAUDIA) - Final, Resulted 06/22/19 Gram Stain Result 2 (CLAUDIA) - Final, Resulted 06/19/19 Blood Culture - Final, Complete NO GROWTH AFTER 5 DAYS Review of Systems Constitutional: yes: alert, oriented Ears/Nose/Throat: Yes: no symptom reported Eyes: Yes: no symptom reported Pulmonary: Yes no symptom reported Cardiovascular: Yes no symptom reported Gastrointestional: Yes: no symptom reported Genitourinary: Yes: no symptom reported Musculoskeletal: Yes: no symptom reported Skin: Yes no symptom reported Psychiatric/Neurological: Yes: no symptom reported Endocrine: Yes: no symptom reported Physical Exam General Appearance: no apparent distress Skin: warm Heart: S1S2 Abdomen: soft Genitourinary: bladder flat Extremities: pulses present, no edema Neurology: alert, oriented Assessment Assessment IMP GAMALIEL-ATN-NO CHANGE IN SEVERAL DAYS AND NON OLIGURIC S/P I$D OF RIGHT LEG ABSCESS PLAN PT WANTS TO GO HOME OK TO D/C HAVE ASKED PT TO CALL OFFICE TODAY AND SET UP OP OV WITH DR GOMEZ IN ABOUT A WEEK WITH LABS KENDELL WRIGHT MD Jun 26, 2019 11:57
--- NOTE | 2019-06-26 14:36 | NUR ---
Pt. discharged to home with Rx, verbalized understanding of discharge instructions. RLE dressing CDI.
== END 2019-06-26 14:45 | disposition home health service (06) | DRG 853 ==
LOC: ER 14:56 → 4 NORTH 16:47
PROVIDERS: ADMIT Internal Medicine; ATTEND Internal Medicine
PROC: 0J9N0ZZ Drainage of Right Lower Leg Subcutaneous Tissue and Fascia, Open Approach (ICD-10-PCS; principal; 2019-06-22 12:00)
DX: A41.9 Sepsis, unspecified organism (principal); N17.0 Acute kidney failure with tubular necrosis; L02.415 Cutaneous abscess of right lower limb; L03.115 Cellulitis of right lower limb; D53.9 Nutritional anemia, unspecified; E03.9 Hypothyroidism, unspecified; E55.9 Vitamin D deficiency, unspecified; F17.200 Nicotine dependence, unspecified, uncomplicated; L02.425 Furuncle of right lower limb; L52 Erythema nodosum; M67.479 Ganglion, unspecified ankle and foot; M67.879 Other specified disorders of synovium and tendon, unspecified ankle and foot; B95.62 Methicillin resistant Staphylococcus aureus infection as the cause of diseases classified elsewhere; M72.2 Plantar fascial fibromatosis; Z82.49 Family history of ischemic heart disease and other diseases of the circulatory system
CPT/HCPCS: 10060; 36415; 73723; 76770; 80048; 80053; 80069; 80202; 81001; 82550; 82607; 83036; 83605; 84443; 85007; 85025; 85651; 86140; 87040; 87071; 87075; 87086; 87186; 89050; 93971; 96365; 96366; A7015; A9575; J0780; J1100; J1170; J1650; J2001; J2250; J2270; J2405; J2543; J2704; J3010; J3370; J3490; J7030; J7040; J7120; 99285-25; A4461; G0378

== ENCOUNTER → 2019-08-07 | Outpatient (CLI) | payer BC ==
[~2019-08-07] MED LIST changes: +HYDR-2761 PO; +LINE600T12 PO
--- NOTE | 2019-08-07 11:43 | KCIC ---
Bilateral diagnostic digital mammograms: Reason for examination: Follow-up nodule. Comparison is made to previous studies dated back to 07/06/2016. Interpretation was made with the benefit of CAD. The skin and nipples show no abnormalities. No abnormal lymph nodes are seen. The breast parenchyma is predominantly fatty. (Breast density: Category A.) There has been a decrease in size of a small nodule at the 1:30 B position of the left breast. Intramammary lymph nodes are again seen which have not changed. There are no new dominant masses, suspicious calcifications or architectural distortions. A few benign calcifications are again seen. Impression: Increased prominence of the nodule at the 1:30 B position of the left breast. Ultrasound to follow. BI-RADS Category 0: Incomplete. Needs additional imaging evaluation. Left breast ultrasound: Comparison is made to previous studies dated 02/20/2019 through 20/07/2018. Ultrasound examination of the left breast and axilla was performed. There continues to be 5.9 mm hypoechoic lesion with a fibrocystic appearance at the 1:30 position 9 cm from the nipple which shows interval improvement. There are intramammary lymph nodes at the 3:00 position 15 cm from the nipple and at the 3:30 position 18 cm from the nipple. No abnormal appearing lymph nodes are seen in the axilla. IMPRESSION: Decreased size of small nodule at the 1:30 position measuring 5.9 mm in greatest dimension. Small intramammary lymph nodes at the 3:00 position. No suspicious abnormalities are seen. Recommend routine mammographic follow-up. BI-RADS Category 2: Benign. "Our facility is accredited by the [employer] Mammography [employer]." This patient's information has been entered into a reminder system for the patient to be notified with the results of her examination and a target date for the next mammogram. Electronically signed by: Chelsey Hernandez MD (08/07/2019 11:40 AM) [id number]
== END ==
LOC: KCIC MAMMO 09:42
PROVIDERS: ATTEND Family Medicine
DX: Z09 Encounter for follow-up examination after completed treatment for conditions other than malignant neoplasm (principal); N63.22 Unspecified lump in the left breast, upper inner quadrant
CPT/HCPCS: 76641; 77066

== ENCOUNTER → 2019-11-06 | Outpatient (CLI) | payer BC ==
[~2019-11-06] MED LIST changes: -LEVO88TA2 PO; +LEVO88TA70 PO
== END | disposition home or self-care (01) ==
LOC: LAB 14:13
PROVIDERS: ATTEND Internal Medicine Gastroenterology
DX: Z11.59 Encounter for screening for other viral diseases (principal)
CPT/HCPCS: U0003-CS

== ENCOUNTER → 2019-11-10 | Day surgery (SDC) | payer BC ==
[~2019-11-10] MED LIST changes: +HYDROmorphone 2 MG/ML VIAL IV PRN; +IV RINGERS,LACTATED 1000ML 1,000 ML IV SCH; +MORPHINE SULFATE 2 MG/ML VIAL. IV PRN; +ONDANSETRON PF 4 MG/2 ML VIAL. IV PRN; +PROCHLORPERAZINE 10 MG/2 ML VIAL. IV PRN; +PROPOFOL 10 MG/ML (20ML) VIAL. IV ONE
--- NOTE | 2019-11-10 10:07 | HP ---
ADMIT DATE: REFERRING PHYSICIAN: Chris Clark MD REASON FOR CONSULTATION: Screening colonoscopy. HISTORY OF PRESENT ILLNESS: A 59-year-old -[place] female with past medical history significant for osteoporosis, hypothyroidism, gastroesophageal reflux disease, seen for interval colon exam. She had previous bleeding thought to be diverticular in nature. Bowel habits have been regular since, but no change in bowel habits. Family history is positive for colon polyps with her mother. Weight and appetite are stable and she is otherwise without additional complaints. PAST MEDICAL HISTORY: Osteoporosis, hypothyroidism, status post . MEDICINES: Fosamax, vitamin D, levothyroxine, and pantoprazole. ALLERGIES: None. FAMILY AND SOCIAL HISTORY: She is a nonsmoker, nondrinker. REVIEW OF SYSTEMS: Per records. PHYSICAL EXAMINATION: GENERAL: Reveals a well-nourished, well-developed -[place] female, alert, cooperative, in no acute distress. VITAL SIGNS: Temperature is 97.5, pulse 89, respiratory rate 20. LUNGS: Clear. CARDIOVASCULAR: Reveals an S1, S2 without S3, S4 or appreciable murmur. ABDOMEN: Reveals a soft abdomen, normal bowel sounds, without appreciable hepatosplenomegaly. EXTREMITIES: Reveals no cyanosis, clubbing or edema. IMPRESSION: Colorectal screening. Risks and benefits of procedure including risk and perforation were discussed. The patient is willing to proceed at this time. TATUM BRADFORD MD DR: JAMEEL/cee JOB#: [id number] / [id number] MICHAEL Solorzano MD
[2019-11-10 10:52] VITALS: BP 142/87
== END | disposition home or self-care (01) ==
LOC: ENDOS 08:34
PROVIDERS: ATTEND Internal Medicine Gastroenterology
DX: Z12.11 Encounter for screening for malignant neoplasm of colon (principal); K64.0 First degree hemorrhoids; K57.30 Diverticulosis of large intestine without perforation or abscess without bleeding; M81.0 Age-related osteoporosis without current pathological fracture; E03.9 Hypothyroidism, unspecified; K21.9 Gastro-esophageal reflux disease without esophagitis; Z79.899 Other long term (current) drug therapy; Z91.041 Radiographic dye allergy status; Z83.71 Family history of colonic polyps; Z98.890 Other specified postprocedural states
CPT/HCPCS: 45378; J2704

== ENCOUNTER → 2020-08-15 | Outpatient (CLI) | payer BC ==
[2019-11-10 10:52] VITALS: BP 142/87
[~2020-08-15] MED LIST changes: -ALEN35TA11 PO; +ALEN35TA45 PO; -HYDROmorphone 2 MG/ML VIAL IV PRN; -IV RINGERS,LACTATED 1000ML 1,000 ML IV SCH; -MORPHINE SULFATE 2 MG/ML VIAL. IV PRN; -ONDANSETRON PF 4 MG/2 ML VIAL. IV PRN; -PROCHLORPERAZINE 10 MG/2 ML VIAL. IV PRN; -PROPOFOL 10 MG/ML (20ML) VIAL. IV ONE
--- NOTE | 2020-08-15 14:28 | KCIC ---
EXAM: Bilateral screening mammogram. HISTORY: 59-year-old female presents for screening mammography. TECHNIQUE: Full-field digital craniocaudal and mediolateral oblique views of both breasts are obtaine d for evaluation. Computer aided detection was applied. COMPARISON: 08/07/2019 BREAST PARENCHYMAL DENSITY: Level A - Mostly fat. FINDINGS: There is no new suspicious mass, microcalcification or region of architectural distortion. IMPRESSION: BI-RADS Category 2: Benign finding(s). RECOMMENDATION: Annual mammography is recommended. If your mammogram demonstrates that you have dense breast tissue, which could hide abnormalities, and if you have other risk factors for breast cancer that have been identified, you might benefit from s upplemental screening tests that may be suggested by your ordering physician. Dense breast tissue, i n and of itself, is a relatively common condition. This information is not provided to cause undue c oncern, but rather to raise your awareness and to promote discussion with your physician regarding th e presence of other risk factors, in addition to dense breast tissue. A report of your mammography re sults will be sent to you and your physician. You should contact your physician if you have any ques tions or concerns regarding this report. Mammography is a sensitive method for finding small breast cancers, but it does not detect them all a nd is not a substitute for careful clinical examination. A negative mammogram does not negate a clin ically suspicious finding and should not result in delay in biopsying a clinically suspicious abnorma lity. PQRS compliance statement - Patient information was entered into a reminder system with a target due date for the next mammogram. "Our facility is accredited by the [employer] Mammography Program." Electronically signed by: Irma Smith MD (08/15/2020 2:25 PM) [id number]
== END ==
LOC: KCIC MAMMO 12:26
PROVIDERS: ATTEND Family Medicine
DX: Z12.31 Encounter for screening mammogram for malignant neoplasm of breast (principal)
CPT/HCPCS: 77067

== ENCOUNTER → 2020-12-18 | Outpatient (CLI) | payer BC ==
[2019-11-10 10:52] VITALS: BP 142/87
--- NOTE | 2020-12-18 11:25 | KCIC ---
INDICATION: Screening for osteopenia/osteoporosis. Reason: OSTEOPOROSIS WITHOUT CURRENT PATHOLOGICAL FRACTURES / Spl. Instructions: / History: COMPARISON: None. TECHNIQUE: Bone densitometry was performed through the lumbar spine and proximal femur. IMPRESSION: Lumbar Spine: BMD: 0.94 T-Score: -1.0 Range: Osteopenic Proximal Femur: BMD: 1.03 T-Score: 0.8 Range: Normal World Health Organization Criteria for Bone Density: T-Score: > -1.0: Normal Range < -1.0 to -2.5: Osteopenic Range < -2.5: Osteoporotic Range Electronically signed by: David Murphy MD (12/18/2020 11:22 AM) [id number]
== END ==
LOC: KCIC DEXA 09:47
PROVIDERS: ATTEND Nurse Practitioner
DX: M85.88 Other specified disorders of bone density and structure, other site (principal); M81.8 Other osteoporosis without current pathological fracture
CPT/HCPCS: 77080

== ENCOUNTER → 2020-12-23 | Outpatient (CLI) | payer BC ==
[2019-11-10 10:52] VITALS: BP 142/87
--- NOTE | 2020-12-24 11:01 | KCIC ---
XR FINGER(S)_LEFT 2+VIEW History: Reason: PAINFUL DJD OF LT THUMB CMP JOINT, BILAT KNEES, CHRONIC LBP, NO INJURY / Spl. Instru ctions: / History: Technique: 3 views left first digit. Comparison: None. Findings: Normal alignment. No fracture. Moderate first carpometacarpal DJD. Impression: 1. No acute osseous abnormality. 2. Moderate first carpometacarpal DJD. Electronically signed by: Braxton Vyas DO (12/24/2020 10:58 AM) [id number]
--- NOTE | 2020-12-24 11:02 | KCIC ---
XR KNEE_AP BILAT STANDING History: Reason: PAINFUL DJD OF LT THUMB CMP JOINT, BILAT KNEES, CHRONIC LBP, NO INJURY / Spl. Instru ctions: / History: Technique: AP standing view bilateral knees. Comparison: None. Findings: No dislocation. No acute fracture. Genu varus alignment on the left. Advanced left medial compartment DJD with joint space narrowing, sclerosis and osteophyte formation. Moderate right knee DJD with wali nt space narrowing and osteophyte formation. Impression: 1. Advanced left and moderate right knee DJD. Electronically signed by: Braxton Vyas DO (12/24/2020 10:59 AM) [id number]
--- NOTE | 2020-12-24 11:04 | KCIC ---
XR LUMBAR SPINE 4+V History: Reason: PAINFUL DJD OF LT THUMB CMP JOINT, BILAT KNEES, CHRONIC LBP, NO INJURY / Spl. Instru ctions: / History: Technique: 6 views lumbar spine. Comparison: None. Findings: Mild retrolisthesis L5 on S1. Slight grade 1 anterolisthesis L4 on L5. Chronic lower thoracic anterio r vertebral body wedging. No acute fracture. Moderate degenerative disc changes most prominent L4-5 a nd L5-S1. Advanced lower lumbar facet arthropathy. Impression: 1. Multilevel lumbar spondylosis most prominent L4-5 and L5-S1. 2. Grade 1 anterolisthesis L4 on L5. 3. Mild retrolisthesis L5 on S1. Electronically signed by: Braxton Vyas DO (12/24/2020 11:01 AM) [id number]
== END ==
LOC: KCIC 14:16
PROVIDERS: ATTEND Physical Medicine & Rehabilitation
DX: M17.12 Unilateral primary osteoarthritis, left knee (principal); M17.11 Unilateral primary osteoarthritis, right knee; M18.12 Unilateral primary osteoarthritis of first carpometacarpal joint, left hand; M21.162 Varus deformity, not elsewhere classified, left knee; M25.762 Osteophyte, left knee; M25.761 Osteophyte, right knee; M51.37 Other intervertebral disc degeneration, lumbosacral region; M43.17 Spondylolisthesis, lumbosacral region; M47.816 Spondylosis without myelopathy or radiculopathy, lumbar region
CPT/HCPCS: 72110; 73140; 73565

== ENCOUNTER → 2021-08-18 | Outpatient (CLI) | payer BC ==
[2019-11-10 10:52] VITALS: BP 142/87
[~2021-08-18] MED LIST changes: -ALEN35TA45 PO; +ALEN35TA47 PO
--- NOTE | 2021-08-18 16:06 | KCIC ---
Bilateral digital screening 2-D and 3-D (digital breast tomosynthesis) mammogram: Reason for examination: Routine screening. Comparison: Mammograms from 08/03/2018, 08/07/2019, 08/15/2020. Left breast ultrasound from 08/07/2019. Interpretation was made with the benefit of CAD. FINDINGS: Breast density: Category A. Breast tissue is almost entirely fatty. No suspicious breast mass, malignant appearing calcifications, or architectural distortion is seen. T he previously noted small area of focal fibrocystic change in the 1:30 position of the left breast, 9 cm from the nipple, has decreased. IMPRESSION: No evidence of malignancy. Assessment: BI-RADS 1. Negative. Recommendation: Routine screening mammograms. The patient will receive a letter with the results in the mail. Patient information will be entered i nto the mammography reminder system with a target recall date for the next mammogram. A reminder ramya er will be generated. Electronically signed by: Cheryle Moseley MD (08/18/2021 4:04 PM) [id number]
== END ==
LOC: KCIC MAMMO 13:23
PROVIDERS: ATTEND Family Medicine
DX: Z12.31 Encounter for screening mammogram for malignant neoplasm of breast (principal)
CPT/HCPCS: 77067